=== PATIENT | female | born 2000 | race Caucasian/White ===

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

== ENCOUNTER 2022-01-01 10:10 | Emergency (ER) | payer OTHER, SELFPAY ==
[2022-01-01 10:22] VITALS: BP 115/67; PULSE 85; RESP 18; TEMP 36.7; O2SAT 100
[2022-01-01 10:23] VITALS: BP 115/67; PULSE 85; RESP 18; TEMP 36.7; O2SAT 100
--- NOTE | 2022-01-01 10:32 | ECG_ITS ---
Measurements Intervals [place] Rate: 69 P: 4 ID: 143 QRS: 67 QRSD: 80 T: 39 QT: 374 QTc: 402 Interpretive Statements SINUS RHYTHM NORMAL ECG Electronically Signed On 01-01-2022 10:56:03 CDT by Carlos Monson D.O.
--- NOTE | 2022-01-01 10:39 | ED.CHESTPAIN ---
HPI - Chest Pain General Chief Complaint: Chest Pain Stated Complaint: Neck,Chest,Lt Arm,Lt Hand Pain Time Seen by Provider: 01/01/22 10:40 Source: patient Mode of arrival: ambulatory Limitations: no limitations History of Present Illness HPI narrative: 21-year-old female who presents to [facility] with complaints of episode of chest pain starting at work at 0800 today. States that chest pain in left chest region rates pain 3/10 described as ache or pressure, states pain top of left hand also, denies any shortness of breath, no palpitations verbalized or any nausea or any diaphoresis. Patient states that she has been having episodes of intermittent chest pain with radiation up neck and down left arm for the past few weeks, seems to be worse when she is stressed or anxious. Patient reports that she had baby in August and has not taken her antidepressant since then. Patient states that her family says she must just learn how to control her anxiety and anger and that she doesn't need medications. Patient has clear lungs on auscultation, no tachypnea noted or any wheezing, SAO2 99% on room air, color pink, skin warm and dry. Patient reports that she had COVID about 1 month ago. MD complaint: chest pain Pertinent past history: other (anxiety) Onset (ago): week(s) (increase symptoms for past 2-3 weeks) Timing of current episode: other (started at work at 0800) Prior episodes: Yes Onset: other (with stress) Pain location: left chest Pain radiation: left arm (at times) and neck (at times ) Pain scale (0-10): 3 Exacerbating factors: stress Treatment prior to arrival: none Risk Factors Coronary artery disease risk factors: smoking history (vapes) Thoracic aortic dissection risk factors: none Pulmonary embolism risk factors: oral contracepetive use Related Data Home Medications Medication Instructions Recorded Confirmed No Home Medications 01/01/22 01/01/22 Allergies Allergy/AdvReac Type Severity Reaction Status Date / Time No Known Allergies Allergy Unknown Verified 01/01/22 10:23 Review of Systems Review of Systems: CONSTITUTIONAL: Denies fever, chills, or sweats. EYES: Denies visual changes, redness, or discharge. ENT: Denies rhinorrhea, congestion, sore throat, or otalgia. CARDIOVASCULAR: Positive for episodic chest pain, palpitations, no edema. RESPIRATORY: Denies cough or dyspnea. GASTROINTESTINAL: Denies abdominal pain, nausea, vomiting, or diarrhea. GENITOURINARY: Denies dysuria or hematuria. SKIN: Denies rash or itching. MUSCULOSKELETAL: Denies back pain, joint pain, or myalgia. NEUROLOGIC: Denies headache, numbness, or weakness. PSYCHIATRIC: Positive for anxiety or depression. PMFSH Past Medical History Medical History Anxiety Bipolar 1 disorder Depression Self-mutilation Surgical History Surgical History No pertinent past surgical history Family History Family History Sibling Diabetes mellitus Grandparent Diabetes mellitus Grandparent Breast cancer Social History Social History (Updated 01/01/22 @ 11:33 by Nilsa Tian NP) Tobacco type: e-cigarettes/vaping Alcohol intake: never Substance use: unknown Substance use type: marijuana Spiritual care concerns: No Comments At time of signature, agree with nursing past medical, surgical, social and family history. There is no relevant family history pertinent to the presenting complaint Exam Narrative: GENERAL: Well-appearing, well-nourished, and in no acute distress, is tearful HEAD: Normocephalic, atraumatic. EYES: PERRLA and EOMI. ENT: Nares clear, no rhinorrhea or epistaxis. Mucous membranes moist.TM's normal with good light reflex, throat pink with no lesions or exudates or tonsil swelling NECK: Supple. no lymphadenopathy CHEST: Clear to auscultation. No respirato
== END 2022-01-01 11:08 | disposition home or self-care (01) ==
PROVIDERS: Emergency Provider Registered Nurse
DX: R07.89 Other chest pain (principal); F41.9 Anxiety disorder, unspecified; F17.290 Nicotine dependence, other tobacco product, uncomplicated
CPT/HCPCS: 93005; 99213; G0463

== ENCOUNTER 2022-01-07 10:17 | Emergency (ER) | payer OTHER, SELFPAY ==
--- NOTE | 2022-01-07 10:28 | ED.URI ---
HPI - URI/Sore Throat General Chief Complaint: Upper Respiratory Infection Stated Complaint: fever,chills,sorethroat Time Seen by Provider: 01/07/22 10:28 Source: patient Mode of arrival: ambulatory Limitations: no limitations History of Present Illness HPI Narrative: Ms. Wynne is a 21-year-old female patient presenting to the clinic today with complaints of fever, chills, and sore throat to 3 days. She reports that her mom and dad were sick of last week. She reports her highest temp was 101 ?F states that she is also got a headache and body aches. She denies any known exposure to anybody with COVID, flu, or strep. Related Data Home Medications Medication Instructions Recorded Confirmed No Home Medications 01/01/22 01/01/22 Allergies Allergy/AdvReac Type Severity Reaction Status Date / Time No Known Allergies Allergy Unknown Verified 01/07/22 10:57 Review of Systems Review of Systems: Pertinent positives per HPI. Patient denies any rash, visual changes, dizziness, cough, runny nose, shortness of breath, chest pain, palpitations, nausea, vomiting, diarrhea, constipation, abdominal pain, or any urinary issues. PMFSH Past Medical History Medical History Anxiety Bipolar 1 disorder Depression Self-mutilation Surgical History Surgical History No pertinent past surgical history Family History Family History Sibling Diabetes mellitus Grandparent Diabetes mellitus Grandparent Breast cancer Social History Social History Tobacco type: e-cigarettes/vaping Alcohol intake: never Substance use: unknown Substance use type: marijuana Spiritual care concerns: No Comments At the time of my signature, I reviewed and agree with the nursing past medical, surgical, social, and family history. There is no relevant family history pertinent to the patient complaint. Exam Narrative: General: Well-developed, well nourished, in no apparent distress Head: Normocephalic, atraumatic Eyes: Pupils equally round and reactive to light bilaterally, EOM intact, sclera and conjunctive clear, no discharge, lids normal Ears: TMs intact and dull, ear canals clear, no drainage, grossly hearing normal. Nose: Nares patent, clear nasal discharge, mild inflammation, no sinus tenderness. Mouth: Oropharynx without lesions or masses, good dentition, MMM. Postnasal drip, oropharynx red Neck: Supple, trachea midline, no enlargement of anterior or posterior cervical nodes, no thyroid masses or goiter palpable. Cardio: Regular rate and rhythm, s1 and s2 normal, no murmur appreciated. Resp: Clear to auscultation bilaterally anteriorly and posteriorly, no rhonchi, rales, wheezing or rubs Course Course Emergency Course: Portions of this record may have been created with voice recognition software. Level of Care: Express Care Visit Vital Signs Vital signs: Vital signs reviewed MDM - URI/Sore Throat MDM Narrative Medical decision making narrative: At the time of visit patient is resting comfortably on the exam table. COVID, strep, and influenza testing was completed. All testing was negative. I suspect the patient has viral syndrome. Supportive measures were discussed with the patient she voiced understanding of discharge instructions. Differential Diagnosis Differential diagnosis: Likely upper respiratory infection, otitis media, sinusitis, viral infection, bronchitis, influenza, pharyngitis and other (COVID) Discharge Plan Discharge Clinical Impression: Viral syndrome Patient Disposition: Home, Self-Care Condition: Stable Instructions: Viral Syndrome (ED) Additional Instructions: COVID, strep, and influenza testing negative in the clinic. We will sen
[2022-01-07 10:38] VITALS: BP 94/61; PULSE 92; RESP 18; TEMP 36.5; O2SAT 100
== END 2022-01-07 11:20 | disposition home or self-care (01) ==
PROVIDERS: Emergency Provider Nurse Practitioner Family; PCP Emergency Medicine
DX: B34.9 Viral infection, unspecified (principal); Z20.822 Contact with and (suspected) exposure to COVID-19; F17.290 Nicotine dependence, other tobacco product, uncomplicated
CPT/HCPCS: 87081; 87426; 87804; 87880; 99213; C9803; G0463

== ENCOUNTER 2022-03-08 08:57 | Emergency (ER) | payer OTHER, SELFPAY ==
--- NOTE | ~2022-03-08 | CT_ITS ---
EXAMINATION: CT abdomen pelvis w con DATE: 03/08/2022 12:26 INDICATION: Right lower quadrant abdominal pain. TECHNIQUE: Computed tomography (CT) of the abdomen and pelvis was performed with 100 mL Omnipaque-300 intravenous contrast. Automated exposure control and iterative reconstruction technique were employe d. The dose-length product was 170.00 mGy-cm. COMPARISON: None FINDINGS: Lung bases are clear. Heart size is normal. No pericardial or pleural effusion. Liver, gallbladder, s pleen, pancreas, bilateral adrenal glands and kidneys are normal. Bladder is normal. Anteverted uteru s and bilateral adnexa are unremarkable. Bowels including the appendix are normal. Small amount of li francoise physiologic free fluid in the cul-de-sac. No abscess or free intraperitoneal gas. Bones are unre markable. IMPRESSION: 1. Small amount of likely physiologic free fluid in the cul-de-sac. No other acute intra-abdominal/pe lvic process. Specifically the appendix is normal. Reviewed, dictated and finalized at location A. IMPRESSION: 1. Small amount of likely physiologic free fluid in the cul-de-sac. No other ac [place] intra-abdominal/pelvic process. Specifically the appendix is normal.
[2022-03-08 09:00] VITALS: BP 127/81; PULSE 86; RESP 14; TEMP 36.3; O2SAT 100
[2022-03-08 09:07] VITALS: BP 126/86; PULSE 84; TEMP 36.9; O2SAT 100
[2022-03-08] MEDS: SODIUM CHLORIDE 0.9% IV 1,000 ML 999 ML IV CONT (09:51)
[2022-03-08] MEDS: KETOROLAC 30 MG/ML VIAL (*BKC) IV PUSH (09:51)
[2022-03-08 10:05] LABS: Basophils Percent Auto 0.6 % (0.2-1.2); Eosinophils Percent Auto 0.2 % (0-4.4); Hematocrit 41.5 % (37.0-47.0); Hemoglobin 13.5 g/dL (12.0-15.0); Immature Granulocyte Absolute 0.02 K/mm3 (0.00-0.031); Immature Granulocyte Percent A 0.4 % (0-0.5); Lymphocytes Absolute Auto 0.85 K/mm3 (0.9-3.2); Lymphocytes Percent Auto 18.2 % (18.3-44.2); Mean Corpuscular HGB Conc 32.5 g/dl (32-36); Mean Corpuscular Hemoglobin 26.6 pg (26-34); Mean Corpuscular Volume 81.9 fl (80-100); Mean Platelet Volume 10.3 fl (7.4-10.4); Monocytes Absolute Auto 0.7 K/mm3 (0.1-0.6); Monocytes Percent Auto 14.2 % (2.6-8.5); Neutrophils Absolute Auto 3.1 K/mm3 (1.3-6.7); Neutrophils Percent Auto 66.4 % (45.5-73.1); Platelet Count Result 195 k/mm3 (150-375); Red Blood Count 5.07 M/mm3 (4.2-5.4); Red Cell Distribution Width 13.5 % (11.5-14.5); White Blood Count 4.7 K/mm3 (4.5-10.0)
[2022-03-08 10:11] LABS: Appearance Urine Clear (Clear); Bilirubin Urine Negative (Negative); Blood Urine 1+ (Negative); Color Urine Yellow (Yellow); Glucose Urine UA Negative (Negative); Ketones Urine Negative (Negative); Leukocyte Esterase Ur Negative LEU/UL (Negative); Nitrate Urine Negative (Negative); Protein Urine Negative (Negative); Specific Grav Ur 1.015 (1.001-1.035)
[2022-03-08 10:15] LABS: Alanine Aminotransferase 15 U/L (6-35); Albumin Level 4.4 g/dL (3.7-5.6); Alkaline Phosphatase 98 U/L (45-116); Anion Gap 9 mmol/L (8-16); Aspartate Amino Transferase 39 U/L (14-36); Bilirubin,Total 1.8 mg/dL (0.2-1.3); Blood Urea Nitrogen 12 mg/dL (8-21); Calcium 8.6 mg/dL (8.9-10.7); Carbon Dioxide 25 mmol/L (22-30); Chloride 106 mmol/L (98-107); Estimated CRCL calculation 76 ml/min; Estimated Glomerular Filt Rate > 60; Glucose 94 mg/dL (65-110); Lipase 53 U/L (23-300); Potassium 3.9 mmol/L (3.4-5.0); Sodium 140 mmol/L (134-143)
[2022-03-08 10:17] LABS: Bacteria Urine Trace /hpf; Mucus Urine Rare /lpf; Squamous Epithelial Cell Urine Few /hpf (Few); WBC Urine 0-3 /hpf
[2022-03-08 10:20] LABS: Add Urine Microscopic? YES
--- NOTE | 2022-03-08 12:47 | ED.GENADULT ---
HPI - General Adult General Chief complaint: Back Pain/Injury Stated complaint: back pain radiates down into buttocks/leg Time Seen by Provider: 03/08/22 09:03 Source: RN notes reviewed History of Present Illness HPI narrative: Patient presents emergency room from home for back and abdominal pain. Patient states the pain began 2 days ago. She denies any direct trauma or injury states the pain is located left lower back and radiates around to the abdomen with pain to the bilateral lower abdomen states the pain also going her buttocks pain is described as sharp and stabbing it is worse with movement she denies any fevers or chills chest pain shortness of breath den any vomiting or diarrhea but does note intermittent nausea states she does not take anything for the pain today Related Data Allergies Allergy/AdvReac Type Severity Reaction Status Date / Time No Known Allergies Allergy Unknown Verified 01/07/22 10:57 Review of Systems Review of Systems: Gen.: Denies fevers or chills ENT: Denies congestion Respiratory: Denies shortness of breath or cough CV: Denies chest pain or palpitations GI: See HPI denies burning, urgency, frequency or hematuria Musculoskeletal: D reports left-sided back pain Neuro: Denies numbness, tingling, weakness or focal weakness Skin: Denies rash Except as documented, all other systems reviewed and negative PMF Past Medical History Medical History Anxiety Bipolar 1 disorder Depression Self-mutilation Surgical History Surgical History No pertinent past surgical history Family History Family History Sibling Diabetes mellitus Grandparent Diabetes mellitus Grandparent Breast cancer Social History Social History Tobacco type: e-cigarettes/vaping Alcohol intake: never Substance use: unknown Substance use type: marijuana Spiritual care concerns: No Exam Narrative: APPEARANCE: No acute distress, nontoxic, resting in bed HEENT: Normocephalic, atraumatic, OMM RESPIRATORY: No respiratory distress, clear to auscultation bilaterally with no rhonchi wheezing or rales CARDIOVASCULAR: RRR s murmur ABDOMINAL: Soft nondistended tender palpation right lower quadrant left lower quadrant no tenderness in right upper quadrant left upper quadrant no rebound or guarding left flank tenderness Back: No midline thoracic lumbar tenderness palpation tender palpation over left [place]igee muscles L3-5 MUSCULOSKELETAl: Moves all extremities. No clubbing, cyanosis or edema. NEURO: Awake and alert. Following commands, speech normal, no focal deficits SKIN:: Warm, dry. Normal Color PSYCHIATRIC: Normal affect/mood Course Course Emergency Course: Patient states that they are feeling much better at this time. States abdominal pain has resolved. Repeat abdominal exam shows the patient's abdomen to be soft and nontender. Discussed with patient results of workup and diagnosis. Discussed need for follow-up with primary care physician, reasons to return to the emergency department in proper use of medication. Patient understands and agrees to current treatment plan Vital Signs Vital signs: Vital Signs Temperature 97.3 F L 03/08/22 09:00 Pulse Rate 86 03/08/22 09:00 Respiratory Rate 14 03/08/22 09:00 Blood Pressure 127/81 03/08/22 09:00 Pulse Oximetry 100 03/08/22 09:00 Oxygen Delivery Room Air 03/08/22 09:00 Temperature 98.5 F 03/08/22 09:07 Pulse Rate 84 03/08/22 09:07 Respiratory Rate 14 03/08/22 09:00 Blood Pressure 126/86 03/08/22 09:07 Pulse Oximetry 100 03/08/22 09:07 Oxygen Delivery Room Air 03/08/22 09:00 Medical Decision Making MDM Narrative Medical decision making narrative: Patient's abdomen is soft without significan
[2022-03-08 12:54] VITALS: BP 118/64; PULSE 86; RESP 18; O2SAT 99
== END 2022-03-08 12:54 | disposition home or self-care (01) ==
PROVIDERS: Emergency Provider Emergency Medicine; PCP Emergency Medicine
DX: M54.50 Low back pain, unspecified (principal); R10.32 Left lower quadrant pain; R10.31 Right lower quadrant pain; F17.290 Nicotine dependence, other tobacco product, uncomplicated
CPT/HCPCS: 36415; 74177; 80053; 81001; 81025; 83690; 85025; 96361; 96374; 99284; J1885; J7030; Q9967

== ENCOUNTER 2024-06-12 16:50 | Emergency (ER) | payer OTHER, SELFPAY ==
[2024-06-12 17:07] VITALS: BP 109/63; PULSE 78; RESP 18; TEMP 37.1; O2SAT 100
--- NOTE | 2024-06-12 17:24 | ED_ITS ---
HPI - URI/Sore Throat General Chief Complaint: Upper Respiratory Infection Stated Complaint: throat soreness Time Seen by Provider: 06/12/24 17:25 Source: patient Mode of arrival: ambulatory Limitations: no limitations History of Present Illness HPI Narrative: A 23-year-old female presents with complaint of nasal congestion, cough, postnasal drainage, sore throat for the past 3-4 days. Afebrile. reports chills and body aches. No chest pain or shortness of breath. Denies nausea vomiting diarrhea. Not taking any ttny-uqp-cenyobt medications to treat her symptoms. All systems reviewed and negative except as noted above. Related Data Home Medications Medication Instructions Recorded Confirmed No Home Medications 06/12/24 06/12/24 Allergies Allergy/AdvReac Type Severity Reaction Status Date / Time No Known Allergies Allergy Unknown Verified 06/12/24 17:19 Review of Systems Review of Systems: CONSTITUTIONAL: Denies fever, chills, or sweats. EYES: Denies visual changes, redness, or discharge. ENT: Reports rhinorrhea, congestion, sore throat. Denies otalgia. CARDIOVASCULAR: Denies chest pain, palpitations, or edema. RESPIRATORY: reports cough. Denies dyspnea. GASTROINTESTINAL: Denies abdominal pain, nausea, vomiting, or diarrhea. GENITOURINARY: Denies dysuria or hematuria. SKIN: Denies rash or itching. MUSCULOSKELETAL: Denies back pain, joint pain, or myalgia. NEUROLOGIC: Denies headache, numbness, or weakness. PSYCHIATRIC: Denies anxiety or depression. All other systems reviewed are negative, except as documented in HPI. [facility] Past Medical History Medical History (Updated 06/12/24 @ 17:52 by Damaris Reyes NP) Anxiety Bipolar 1 disorder Depression Self-mutilation Suppression of menses Surgical History Surgical History No pertinent past surgical history Family History Family History Sibling Diabetes mellitus Grandparent Diabetes mellitus Grandparent Breast cancer Social History Social History (Updated 08/11/23 @ 08:23 by Essence To CMA) Smoking status: Former smoker Tobacco type: e-cigarettes/vaping Alcohol intake: never Substance use: current Substance use type: marijuana Last use: occasional Do You Feel Safe in your Home?: Yes Lack of Transportation: No Lack of Food: Never True Current Housing: I Have Housing Concerned About Future Housing: No Difficulty Paying Gas/Electric Bills: No Difficulty Paying for Meds: No Currently Unemployed: No Education: High School Diploma/GED Difficulty w/ Childcare or Family Care: No Living arrangements: with family Occupation/Education: occupation Gender identity (if verbalized by the patient): Female Sexual Orientation (if Verbalized by the Patient): Straight or Heterosexual Spiritual care concerns: No Comments At time of signature, agree with nursing past medical, surgical, social and family history. There is no relevant family history pertinent to the presenting complaint. Exam Narrative: GENERAL: This is a well-nourished, well-developed patient, in no apparent distress. HEAD: normocephalic, atraumatic. EYES: PERRL. Sclera clear/white. Vision is grossly intact. EARS: External ears normal, auditory canals clear and without drainage, TMs normal without perforation. Hearing grossly intact. NOSE: External nose normal with Clear nasal drainage, erythema to nares THROAT: Mucous membranes moist, mild erythema postnasal drainage. No swelling or exudates. NECK: Neck supple, non-tender without lymphadenopathy, masses or thyromegaly. CARDIOVASCULAR: Regular rate and rhythm without murmurs, gallops, or rubs. RESPIRATORY: Clear to auscultation. Breath sounds equal bilaterally. No wheezes, rales, or rhonchi. SKIN: warm, Dry, intact with no suspicious lesions or rash, good texture and turgor. NEURO: awake, alert, and oriented to person, place and time. There were no obvious focal neurologic abnormalities. EXTREMITIES: No joint tenderness, effusion, or edema noted. Course Course Level of Care: Express Care Visit Vital Signs Vital signs: Vital Signs Temperature 37.1 C 06/12/24 17:07 Pulse Rate 78 06/12/24 17:07 Respiratory Rate 18 06/12/24 17:07 Blood Pressure 109/63 06/12/24 17:07 Pulse Oximetry 100 06/12/24 17:07 Oxygen Delivery Room Air 06/12/24 17:07 Temperature 37.1 C 06/12/24 17:07 Pulse Rate 78 06/12/24 17:07 Respiratory Rate 18 06/12/24 17:07 Blood Pressure 109/63 06/12/24 17:07 Pulse Oximetry 100 06/12/24 17:07 Oxygen Delivery Room Air 06/12/24 17:07 reviewed MDM - URI/Sore Throat MDM Narrative Medical decision making narrative: negative COVID, influenza and strep test. Strep culture ordered. Will wait for results prior to treating with antibiotics. Recommend patient take kksb-hya-unrtoif medications to treat symptoms. Patient well-appearing, nontoxic. Patient is aware of diagnosis, understands and agrees to treatment plan. Anticipatory guidance given. Patient agrees to follow-up as directed and is aware of reasons to seek care at the emergency department. Portions of this record may have been created with voice recognition software Differential Diagnosis Differential diagnosis: Likely upper respiratory infection, sinusitis, viral infection and pharyngitis Discharge Plan Discharge Clinical Impression: Upper respiratory infection, viral Patient Disposition: Home, Self-Care Condition: Stable Instructions: Upper Respiratory Infection (ED) Additional Instructions: Your COVID, influenza, strep test were negative today. A strep culture was ordered and results will take 24-48 hours. If her strep culture is positive we will call you at that time and prescribed an antibiotic. Taking eglc-pvu-cfewxtv medication to treat her symptoms such as DayQuil NyQuil cold and Sinus. Drink plenty of water and rest. Place cool mist humidifier in bedroom where you sleep. Follow-up with your primary care physician if symptoms are not improving. Prescriptions: No Action No Home Medications Follow-up/Referrals: PHYSICIAN,EQUIPMENT SERVICE ASSOCIATE [Primary Care Provider] - Time of Disposition: 17:52
[2024-06-12 17:39] LABS: EDSTREPNEGPOS1 Negative (Negative)
[2024-06-12 18:00] LABS: EDCOVIDSCREEN Negative (Negative); EDINFLUASCREEN Negative (Negative); EDINFLUBSCREEN Negative (Negative)
== END 2024-06-12 18:00 | disposition home or self-care (01) ==
PROVIDERS: Emergency Provider Nurse Practitioner Family; Referring Provider Emergency Medicine
DX: J06.9 Acute upper respiratory infection, unspecified (principal); Z20.822 Contact with and (suspected) exposure to COVID-19; F12.90 Cannabis use, unspecified, uncomplicated
CPT/HCPCS: 87081; 87426; 87804; 87880; 99213; G0463

== ENCOUNTER 2024-06-19 03:20 | Emergency (ER) | payer OTHER, SELFPAY ==
--- NOTE | 2024-06-19 03:25 | ED.NAVMDI ---
HPI - Nausea/Vomiting/Diarrhea General Chief complaint: Nausea/Vomiting/Diarrhea Stated complaint: vomiting Time Seen by Provider: 06/19/24 03:24 Source: patient and other Mode of arrival: ambulatory Limitations: no limitations History of Present Illness HPI Narrative: Patient presents with multiple episodes nonbloody emesis that started at approximately 2:00 a.m. on 06/18/2024 (triage note erroneously stated 05/18/24). she had been drinking alcohol earlier that night so initially attributed to this but the vomiting persisted. she has been having increasing nausea and is having some low abdominal pain which she feels like her abdomen is knotting up. she has also been dry heaving. Last menstrual period was a few days ago she states it was short. female. She denies any vaginal discharge or bleeding otherwise. No fevers but she has been feeling chilled. Her last bowel was at 8 and she denies any diarrhea or constipation. She had hyperemesis with previous . She does use marijuana daily. Patient states she does still have sort of an appetite if she could only keep the nausea and vomiting controlled. In particular she states the pain is in her right lower quadrant but it has always been in this location, did not start elsewhere. Related Data Allergies Allergy/AdvReac Type Severity Reaction Status Date / Time No Known Allergies Allergy Unknown Verified 06/19/24 03:23 [facility] Past Medical History Medical History Anxiety Bipolar 1 disorder Depression Hyperemesis gravidarum Self-mutilation Suppression of menses Surgical History Surgical History No pertinent past surgical history Family History Family History Sibling Diabetes mellitus Grandparent Diabetes mellitus Grandparent Breast cancer Social History Social History Smoking status: Former smoker Tobacco type: e-cigarettes/vaping Alcohol intake: current Substance use: current Substance use type: marijuana Other substance usage details: daily Do You Feel Safe in your Home?: Yes Lack of Transportation: No Lack of Food: Never True Current Housing: I Have Housing Concerned About Future Housing: No Difficulty Paying Gas/Electric Bills: No Difficulty Paying for Meds: No Currently Unemployed: No Education: High School Diploma/GED Difficulty w/ Childcare or Family Care: No Living arrangements: with family Occupation/Education: occupation Gender identity (if verbalized by the patient): Female Sexual Orientation (if Verbalized by the Patient): Straight or Heterosexual Spiritual care concerns: No Exam Narrative: GENERAL: in moderate acute distress, loudly vomiting; appears acutely ill but nontoxic. provider Tapping the bed does not increase patient's pain but she does state that it makes her nausea worse. HEAD: Normocephalic, atraumatic. EYES: Non injected, non icteric ENT: Nares clear, no rhinorrhea or epistaxis. NECK: Supple. CHEST: Speaking in full sentences. No respiratory distress. Patient able to force herself to cough and states this does not change the nature of her pain. HEART: Regular rate and rhythm. ABDOMEN: Soft, nondistended. no tenderness to palpation throughout the quadrants including no tenderness in the right lower quadrant. No rebound tenderness or guarding. Not peritoneal. Rovsing sign negative. EXTREMITIES: Normal range of motion. No lower extremity edema. SKIN: Warm, dry, no rash. NEURO: No focal deficits. Alert and oriented x3. PSYCH: Normal mood and affect. Course Vital Signs Vital signs: Vital Signs Temperature 98.3 F 06/19/24 03:43 Pulse Rate 72 06/19/24 03:43 Respiratory Rate 20 06/19/24 03:43 Blood Pressure 148/104 H 06/19/24 03:43 Pulse Oximetry 99 06/19/24 03:43 Temperature 98.3 F 06/19/24 03:43 Pulse Rate 57 L 06/19/24 04:36 Respiratory Rate 20 06/19/24 04:36 Blood Pressure 112/77 06/19/24 04:36 Pulse Oximetry 99 06/19/24 04:36 MDM - Nausea/Vomiting/Diarrhea MDM Narrative Medical decision making narrative: Patient presents with multiple episodes emesis for approximately 24 hours. It started after she had been drinking alcohol has persisted beyond that. Associated with some low abdominal pain particularly in the right lower quadrant Though with a reassuring physical exam. In the emergency department she is afebrile with vital signs notable for hypertension. Miramontes Score RLQ tenderness (No 0, Yes +2): 0 Temp greater than37.3C (No 0, Yes +1): 0 Rebound tenderness (No 0, Yes +1): 0 Migration of pain to the RLQ (No 0, Yes +1): 0 Anorexia (No 0, Yes +1): 0 Nausea/vomiting (No 0, Yes +1): 1 Leukocytosis greater than 10K (No 0, Yes +2): 2 Leukocyte left shift greater than 75% neutrophils (No 0, Yes +1): 0 Total Result = 4 points, unlikely appendicitis. This is especially supported by the absence of Rovsing sign and the fact that her pain is not exacerbated by cough or tapping the bed. DIFFERENTIAL DIAGNOSIS Other causes of right lower quadrant pain in my differential diagnosis besides appendicitis include but are not limited to nephrologic disease like kidney stone, ovarian pathology like torsion or tubo-ovarian abscess, and other GI pathology like colitis or diverticulitis. Also considered gastritis, GERD, hyperemesis gravidarum, hyperemesis cannabinoid syndrome (patient does use marijuana daily), including ectopic , Food poisoning, gastroenteritis drug induced nausea and vomiting, dehydration. we did discuss that we trial 1st line therapies 1st but if patient was not responding, would consider alternative medications given her daily marijuana use and we did briefly discuss the diagnosis of hyperemesis cannabinoid syndrome given her daily use of marijuana but that this is also a diagnosis of exclusion. She has a leukocytosis and elevated hemoglobin and hematocrit likely secondary to hemoconcentration. She has hyperglycemia with an anion gap but no kaitlyn acidosis. I suspect this is driven by some starvation ketosis versus alcohol ketosis. Her calcium corrects to 9.1 mg/dL given her hyper albuminemia; again, likely attributed to hemoconcentration. Patient is reassessed at approximately 5:10 a.m.. She notes that she is feeling much better. Has successfully p.o. challenged with no recurrence of emesis. Stable for discharge. Provided prescriptions for oral disintegrating tablets Zofran as well as additional famotidine. As patient is about to be discharged she is noted to start vomiting again. She does states she would still like to be discharged but would like dose of some medication prior to doing so. Haldol and diphenhydramine ordered; patient has someone with her to provide transportation. Patient is observed for approximately 10-15 minutes after medication administered by RN. Lab Data Attestation: I reviewed the patient's lab results. 06/19/24 03:36 06/19/24 03:36 Labs: Lab Results 06/19/24 06/19/24 06/19/24 Range/Units 03:36 03:36 04:31 WBC 16.7 H (4.5-10.0) K/mm3 RBC 5.96 H (4.2-5.4) M/mm3 Hgb 17.1 H D (12.0-15.0) g/dL Hct 48.2 H (37.0-47.0) % MCV 80.9 (80-100) fl MCH 28.7 (26-34) pg MCHC 35.5 (32-36) g/dl RDW 13.1 (11.5-14.5) % Plt Count 363 D (150-375) k/mm3 MPV 9.6 (7.4-10.4) fl Immature Gran % (Auto) 0.4 (0-0.5) % Neut % (Auto) 88.4 H (45.5-73.1) % Lymph % (Auto) 5.1 L (18.3-44.2) % [place] % (Auto) 5.9 (2.6-8.5) % Eos % (Auto) 0.0 (0-4.4) % Baso % (Auto) 0.2 (0.2-1.2) % Lymph # (Auto) 0.85 L (0.9-3.2) K/mm3 [place] # (Auto) 1.0 H (0.1-0.6) K/mm3 Eos # (Auto) 0.0 (0-0.3) K/mm3 Baso # (Auto) 0.0 (0.0-0.1) K/mm3 Abs Immat Gran (auto) 0.06 H (0.00-0.031) K/mm3 Absolute Neuts (auto) 14.7 H (1.3-6.7) K/mm3 Absolute Nucleated RBC 0.000 (0.0-0.012) K/mm3 Nucleated RBC % 0.0 (0.0-0.2) % Sodium 136 L (137-145) mmol/L Potassium 3.4 (3.4-5.0) mmol/L Chloride 99 (98-107) mmol/L Carbon Dioxide 20 L (22-30) mmol/L Anion Gap 17 H (4-12) mmol/L BUN 18 H (7-17) mg/dL Creatinine 0.80 (0.7-1.0) mg/dL Estim Creat Clear Calc Not Reportable Estimated GFR > 60 (59 - ) Glucose 147 H (65-110) mg/dL Calcium 10.4 H (8.4-10.2) mg/dL Magnesium 1.7 Cancelled (1.6-2.3) mg/dL Total Bilirubin 3.0 H (0.2-1.3) mg/dL AST 43 H (14-36) U/L ALT 26 (6-35) U/L Alkaline Phosphatase 103 (38-126) U/L Total Protein 10.0 H (6.3-8.2) g/dL Albumin 5.6 H (3.5-5.1) g/dL Lipase 36 (23-300) U/L Influenza A (RT-PCR) Negative (Negative) Influenza B (RT-PCR) Negative (Negative) SARS-CoV-2 RNA (RT-PCR) Negative (Negative) Discharge Plan Discharge Clinical Impression: Gastritis, Nausea & vomiting, Leukocytosis, Elevated hemoglobin, Hyperglycemia, Elevated AST (SGOT), Hyperalbuminemia Patient Disposition: Home, Self-Care Condition: Stable Instructions: Antibiotic Form, Gastritis (DC), Acute Nausea and Vomiting (ED), Leukocytosis (ED), Nondiabetic Hyperglycemia (ED) Additional Instructions: Your symptoms improved after IV fluids and medication. You are being prescribed these medications to use outpatient as well. Rest and maintain your hydration. Follow-up with primary care physician. If you do not have 1 the name of doctors listed below. Return to the emergency department with any new or worsening symptoms. Prescriptions: New ondansetron 4 mg tablet,disintegrating 4 mg PO Q8H PRN (Reason: nausea and vomiting) Qty: 10 0RF famotidine 10 mg tablet 10 mg PO DAILY Qty: 14 0RF Follow-up/Referrals: PHYSICIAN,FINANCIAL COACH [Primary Care Provider] - Kalia Small MD [Physician] - (family practice) Stand Alone Forms: Work/School Release IP Time of Disposition: 05:18
[2024-06-19] MEDS: FAMOTIDINE 20 MG/2 ML VIAL IV PUSH (03:33)
[2024-06-19] MEDS: ONDANSETRON INJ 4 MG/2 ML VIAL IV PUSH (03:33)
[2024-06-19 03:43] VITALS: BP 148/104; PULSE 72; RESP 20; TEMP 36.8; O2SAT 99
[2024-06-19 03:43] LABS: Basophils Percent Auto 0.2 % (0.2-1.2); Hematocrit 48.2 % (37.0-47.0); Hemoglobin 17.1 g/dL (12.0-15.0); Immature Granulocyte Absolute 0.06 K/mm3 (0.00-0.031); Immature Granulocyte Percent A 0.4 % (0-0.5); Lymphocytes Absolute Auto 0.85 K/mm3 (0.9-3.2); Lymphocytes Percent Auto 5.1 % (18.3-44.2); Mean Corpuscular HGB Conc 35.5 g/dl (32-36); Mean Corpuscular Hemoglobin 28.7 pg (26-34); Mean Corpuscular Volume 80.9 fl (80-100); Mean Platelet Volume 9.6 fl (7.4-10.4); Monocytes Percent Auto 5.9 % (2.6-8.5); Neutrophils Absolute Auto 14.7 K/mm3 (1.3-6.7); Neutrophils Percent Auto 88.4 % (45.5-73.1); Platelet Count Result 363 k/mm3 (150-375); Red Blood Count 5.96 M/mm3 (4.2-5.4); Red Cell Distribution Width 13.1 % (11.5-14.5); White Blood Count 16.7 K/mm3 (4.5-10.0)
[2024-06-19 03:53] LABS: Albumin Level 5.6 g/dL (3.5-5.1); Alkaline Phosphatase 103 U/L (38-126); Anion Gap 17 mmol/L (4-12); Aspartate Amino Transferase 43 U/L (14-36); Blood Urea Nitrogen 18 mg/dL (7-17); Calcium 10.4 mg/dL (8.4-10.2); Carbon Dioxide 20 mmol/L (22-30); Chloride 99 mmol/L (98-107); Estimated Glomerular Filt Rate > 60; Glucose 147 mg/dL (65-110); Lipase 36 U/L (23-300); Magnesium 1.7 mg/dL (1.6-2.3); Potassium 3.4 mmol/L (3.4-5.0); Sodium 136 mmol/L (137-145)
[2024-06-19 03:58] LABS: Alanine Aminotransferase 26 U/L (6-35)
[2024-06-19] MEDS: LACTATED RINGERS 1,000 ML 999 ML IV CONT (04:28)
[2024-06-19 04:36] VITALS: BP 112/77; PULSE 57; RESP 20; O2SAT 99
--- NOTE | 2024-06-19 04:42 | PC.NURSE ---
Patient states her nausea is better. ERP notified, patient given ice chips for PO challenge.
[2024-06-19 05:13] LABS: Influenza A QL RT-PCR Negative (Negative); Influenza B QL RT-PCR Negative (Negative); SARS-CoV-2 RNA PCR Negative (Negative)
--- NOTE | 2024-06-19 05:52 | PC.NURSE ---
Patient states she feels the nausea back and requests something for nausea before going home. ERP notified and orders placed.
[2024-06-19] MEDS: HALOPERIDOL LACTATE 5 MG/ML VIAL 2.5 MG IV PUSH (05:56)
[2024-06-19] MEDS: diphenhydrAMINE HCl INJ 50 MG/ML VIAL 12.5 MG IV PUSH (05:56)
== END 2024-06-19 06:33 | disposition home or self-care (01) ==
PROVIDERS: Emergency Provider Student in an Organized Health Care Education/Training Program
DX: K29.70 Gastritis, unspecified, without bleeding (principal); D72.829 Elevated white blood cell count, unspecified; R73.9 Hyperglycemia, unspecified; R74.01 Elevation of levels of liver transaminase levels; F31.9 Bipolar disorder, unspecified; Z87.891 Personal history of nicotine dependence; Z20.822 Contact with and (suspected) exposure to COVID-19
CPT/HCPCS: 36415; 80053; 83690; 83735; 85025; 87636; 96361; 96374; 96375; 99284; J1200; J1630; J2405; J7120

== ENCOUNTER 2024-06-20 12:02 | Emergency (ER) | payer OTHER, SELFPAY ==
--- NOTE | ~2024-06-20 | CT_ITS ---
CT abdomen pelvis w con Ordering provider: Mary Segura PA-C History: 23 years Female with . abd pain, vomiting . Comparison: None. Technique: CT abdomen and pelvis with IV and without oral contrast. Automated exposure control and it erative reconstruction technique were employed. The dose-length product was 167.22 mGy-cm. 98 mL Omnipaque 350 was given IV. The Findings: VISUALIZED LOWER CHEST: Normal. UPPER ABDOMINAL ORGANS: Liver: Normal. Gallbladder: Normal. Spleen: Normal. Stomach/duodenum: Normal. Pancreas: Normal. Adrenals: Normal. Kidneys: Normal. PELVIC ORGANS: The bladder is underfilled. BOWEL AND MESENTERY: Colon: No evidence of diverticulitis. No evidence of appendicitis. Small Bowel: Normal. No obstruction. Peritoneum/mesentery: No free air or free fluid. No mesenteric lymphadenopathy. RETROPERITONEUM: Normal aorta. No retroperitoneal lymphadenopathy. MUSCULOSKELETAL: Superficial soft tissues: The superficial soft tissues are normal. Bones: Normal spine. IMPRESSION: 1. No evidence of appendicitis, diverticulitis or intestinal obstruction. Reviewed, dictated and finalized at location A. [facility] ROOM NURSE
[2024-06-20 12:23] VITALS: BP 126/82; PULSE 62; RESP 16; TEMP 36.6; O2SAT 100
[2024-06-20 13:00] VITALS: BP 112/76; PULSE 78; RESP 16; TEMP 36.6; O2SAT 100
--- NOTE | 2024-06-20 13:00 | ED.ABDPAIN ---
HPI - Abdominal Pain General Chief Complaint: Abdominal Pain <Mary Segura PA-C - Last Filed: 06/20/24 18:38> Stated Complaint: abd pain, PCP sent her for abd CT <Mary Segura PA-C - Last Filed: 06/20/24 18:38> Time Seen by Provider: 06/20/24 13:00 <Mary Segura PA-C - Last Filed: 06/20/24 18:38> Focused HPI: This is a 23 year old female that presents to the ER for nausea and vomiting. Ongoing over the last couple of days. She was seen in the ER and told she was dehydrated. She followed up with her PCP who wanted her to be further evaluation with a CT scan. Denies fevers. GENERAL: Well-appearing, well-nourished, and in no acute distress. HEAD: Normocephalic, atraumatic. CHEST: Clear to auscultation. ?No respiratory distress. HEART: Regular rate and rhythm.? NEURO: ?Alert and oriented x3. Patient screened in triage and initial orders placed.? ?Additional care and disposition to be based upon?diagnostic testing and treatment. <Mary Segura PA-C - Last Filed: 06/20/24 18:38> History of Present Illness HPI narrative: Agree with HPI. Had outpatient lab work yesterday it showed leukocytosis with elevated hemoglobin. <Yaya Garzon MD - Last Filed: 06/20/24 15:21> Related Data Allergies/Adverse Reactions: Allergies Allergy/AdvReac Type Severity Reaction Status Date / Time No Known Allergies Allergy Unknown Verified 06/20/24 12:03 <Mary Segura PA-C - Last Filed: 06/20/24 18:38> Review of Systems Review of Systems: All systems reviewed & are unremarkable except as noted in HPI and below <Yaya Garzon MD - Last Filed: 06/20/24 15:21> Constitutional: Constitutional: Denies chills, Reports fatigue and Denies fever(s) <Yaya Garzon MD - Last Filed: 06/20/24 15:21> Cardiovascular: Cardiovascular: Reports no additional cardiovascular complaints <Yaya Garzon MD - Last Filed: 06/20/24 15:21> Respiratory: Respiratory: Reports no additional respiratory complaints <Yaya Garzon MD - Last Filed: 06/20/24 15:21> Gastrointestinal: Gastrointestinal: Reports abdominal pain, Reports nausea and Reports vomiting <Yaya Garzon MD - Last Filed: 06/20/24 15:21> Genitourinary: Genitourinary: Reports no additional female genitourinary complaints <Yaya Garzon MD - Last Filed: 06/20/24 15:21> Integumentary/Breasts: Skin/Breast: Reports system reviewed and no additional complaints, except as docu <Yaya Garzon MD - Last Filed: 06/20/24 15:21> [facility] Past Medical History Medical History: Medical History Anxiety Bipolar 1 disorder Depression Hyperemesis gravidarum Self-mutilation Suppression of menses <Mary Segura PA-C - Last Filed: 06/20/24 18:38> Surgical History Surgical History: Surgical History No pertinent past surgical history <Mary Segura PA-C - Last Filed: 06/20/24 18:38> Family History Family History: Family History Sibling Diabetes mellitus Grandparent Diabetes mellitus Grandparent Breast cancer <Mary Segura PA-C - Last Filed: 06/20/24 18:38> Social History Social History: Social History Smoking status: Former smoker Tobacco type: e-cigarettes/vaping Alcohol intake: current Substance use: current Substance use type: marijuana Other substance usage details: daily Do You Feel Safe in your Home?: Yes Lack of Transportation: No Lack of Food: Never True Current Housing: I Have Housing Concerned About Future Housing: No Difficulty Paying Gas/Electric Bills: No Difficulty Paying for Meds: No Currently Unemployed: No Education: High School Diploma/GED Difficulty w/ Childcare or Family Care: No Living arrangements: with family Occupation/Education: occupation Gender identity (if verbalized by the patient): Female Sexual Orientation (if Verbalized by the Patient): Straight or Heterosexual Spiritual care concerns: No <Mary Segura PA-C - Last Filed: 06/20/24 18:38> Exam Narrative: GENERAL: Well-appearing, well-nourished, and in no acute distress. HEAD: Normocephalic, atraumatic. ENT: Mucous membranes moist. CHEST: Clear to auscultation. No respiratory distress. HEART: Regular rate and rhythm. Normal peripheral pulses. ABDOMEN: Soft, nontender, nondistended. EXTREMITIES: Normal range of motion. No edema. NEURO: Alert and oriented x3. PSYCH: Normal mood and affect. <Yaya Garzon MD - Last Filed: 06/20/24 15:21> Course Course Emergency Course: Labs improving since yesterday. Patient declines IV fluid. Discussed need for aggressive oral rehydration at home. Patient verbalized understanding. She has Zofran at home as well. Discussed imaging results. No appy. <Yaya Garzon MD - Last Filed: 06/20/24 15:21> Vital Signs Vital signs: Vital Signs Temperature 98 F 06/20/24 12:23 Pulse Rate 62 06/20/24 12:23 Respiratory Rate 16 06/20/24 12:23 Blood Pressure 126/82 06/20/24 12:23 Pulse Oximetry 100 06/20/24 12:23 Oxygen Delivery Room Air 06/20/24 12:23 Temperature 97.8 F 06/20/24 15:47 Pulse Rate 74 06/20/24 15:47 Respiratory Rate 16 06/20/24 15:47 Blood Pressure 110/76 06/20/24 15:47 Pulse Oximetry 98 06/20/24 15:47 Oxygen Delivery Room Air 06/20/24 12:23 <Mary Segura PA-C - Last Filed: 06/20/24 18:38> Vital Signs Temperature 98 F 06/20/24 12:23 Pulse Rate 62 06/20/24 12:23 Respiratory Rate 16 06/20/24 12:23 Blood Pressure 126/82 06/20/24 12:23 Pulse Oximetry 100 06/20/24 12:23 Oxygen Delivery Room Air 06/20/24 12:23 Temperature 97.8 F 06/20/24 15:47 Pulse Rate 74 06/20/24 15:47 Respiratory Rate 16 06/20/24 15:47 Blood Pressure 110/76 06/20/24 15:47 Pulse Oximetry 98 06/20/24 15:47 Oxygen Delivery Room Air 06/20/24 12:23 <Yaya Garzon MD - Last Filed: 06/20/24 15:21> MDM - Abdominal Pain Lab Data Result diagrams: 06/20/24 13:17 06/20/24 13:17 <Mary Segura PA-C - Last Filed: 06/20/24 18:38> Labs: Lab Results 06/20/24 Range/Units 13:17 WBC 10.1 H (4.5-10.0) K/mm3 RBC 5.62 H (4.2-5.4) M/mm3 Hgb 16.2 H (12.0-15.0) g/dL Hct 48.0 H (37.0-47.0) % MCV 85.4 D (80-100) fl MCH 28.8 (26-34) pg MCHC 33.8 (32-36) g/dl RDW 13.0 (11.5-14.5) % Plt Count 290 (150-375) k/mm3 MPV 9.6 (7.4-10.4) fl Immature Gran % (Auto) 0.4 (0-0.5) % Neut % (Auto) 64.4 (45.5-73.1) % Lymph % (Auto) 25.8 (18.3-44.2) % Morton % (Auto) 8.7 H (2.6-8.5) % Eos % (Auto) 0.4 (0-4.4) % Baso % (Auto) 0.3 (0.2-1.2) % Lymph # (Auto) 2.61 (0.9-3.2) K/mm3 Morton # (Auto) 0.9 H (0.1-0.6) K/mm3 Eos # (Auto) 0.0 (0-0.3) K/mm3 Baso # (Auto) 0.0 (0.0-0.1) K/mm3 Abs Immat Gran (auto) 0.04 H (0.00-0.031) K/mm3 Absolute Neuts (auto) 6.5 (1.3-6.7) K/mm3 Absolute Nucleated RBC 0.000 (0.0-0.012) K/mm3 Nucleated RBC % 0.0 (0.0-0.2) % Sodium 137 (137-145) mmol/L Potassium 3.4 (3.4-5.0) mmol/L Chloride 100 (98-107) mmol/L Carbon Dioxide 27 (22-30) mmol/L Anion Gap 10 (4-12) mmol/L BUN 15 (7-17) mg/dL Creatinine 0.70 (0.7-1.0) mg/dL Estim Creat Clear Calc 77 ml/min Estimated GFR > 60 (59 - ) Glucose 87 (65-110) mg/dL Calcium 9.8 (8.4-10.2) mg/dL Total Bilirubin 2.6 H (0.2-1.3) mg/dL AST 32 (14-36) U/L ALT 17 (6-35) U/L Alkaline Phosphatase 63 (38-126) U/L Total Protein 9.0 H (6.3-8.2) g/dL Albumin 5.0 (3.5-5.1) g/dL Lipase 88 (23-300) U/L Urine Color Yellow (Yellow) Urine Appearance Clear (Clear) Urine pH 6.5 (5.0-9.0) Ur Specific [place] 1.009 (1.001-1.035) Urine Protein Negative (Negative) mg/dL Urine Glucose (UA) Negative (Negative) mg/dL Urine Ketones Negative (Negative) mg/dL Ur Blood (Man) 2+ H (Negative) Urine Nitrate Negative (Negative) Urine Bilirubin Negative (Negative) Urine Urobilinogen 1.0 (<2.0) mg/dL Leukocyte Esterase Rfl Trace H (Negative) THALIA/UL Urine RBC 11-20 H (0-2) /hpf Urine WBC 0-5 (0-3) /hpf Ur Squamous Epith Cells None seen (Few) /hpf Urine Bacteria Rare /hpf Urine Casts 0-2 POC Urine HCG, Qual Negative (Negative) <Mary Segura PA-C - Last Filed: 06/20/24 18:38> Lab Results 06/20/24 Range/Units 13:17 WBC 10.1 H (4.5-10.0) K/mm3 RBC 5.62 H (4.2-5.4) M/mm3 Hgb 16.2 H (12.0-15.0) g/dL Hct 48.0 H (37.0-47.0) % MCV 85.4 D (80-100) fl MCH 28.8 (26-34) pg MCHC 33.8 (32-36) g/dl RDW 13.0 (11.5-14.5) % Plt Count 290 (150-375) k/mm3 MPV 9.6 (7.4-10.4) fl Immature Gran % (Auto) 0.4 (0-0.5) % Neut % (Auto) 64.4 (45.5-73.1) % Lymph % (Auto) 25.8 (18.3-44.2) % Morton % (Auto) 8.7 H (2.6-8.5) % Eos % (Auto) 0.4 (0-4.4) % Baso % (Auto) 0.3 (0.2-1.2) % Lymph # (Auto) 2.61 (0.9-3.2) K/mm3 Morton # (Auto) 0.9 H (0.1-0.6) K/mm3 Eos # (Auto) 0.0 (0-0.3) K/mm3 Baso # (Auto) 0.0 (0.0-0.1) K/mm3 Abs Immat Gran (auto) 0.04 H (0.00-0.031) K/mm3 Absolute Neuts (auto) 6.5 (1.3-6.7) K/mm3 Absolute Nucleated RBC 0.000 (0.0-0.012) K/mm3 Nucleated RBC % 0.0 (0.0-0.2) % Sodium 137 (137-145) mmol/L Potassium 3.4 (3.4-5.0) mmol/L Chloride 100 (98-107) mmol/L Carbon Dioxide 27 (22-30) mmol/L Anion Gap 10 (4-12) mmol/L BUN 15 (7-17) mg/dL Creatinine 0.70 (0.7-1.0) mg/dL Estim Creat Clear Calc 77 ml/min Estimated GFR > 60 (59 - ) Glucose 87 (65-110) mg/dL Calcium 9.8 (8.4-10.2) mg/dL Total Bilirubin 2.6 H (0.2-1.3) mg/dL AST 32 (14-36) U/L ALT 17 (6-35) U/L Alkaline Phosphatase 63 (38-126) U/L Total Protein 9.0 H (6.3-8.2) g/dL Albumin 5.0 (3.5-5.1) g/dL Lipase 88 (23-300) U/L Urine Color Yellow (Yellow) Urine Appearance Clear (Clear) Urine pH 6.5 (5.0-9.0) Ur Specific [place] 1.009 (1.001-1.035) Urine Protein Negative (Negative) mg/dL Urine Glucose (UA) Negative (Negative) mg/dL Urine Ketones Negative (Negative) mg/dL Ur Blood (Man) 2+ H (Negative) Urine Nitrate Negative (Negative) Urine Bilirubin Negative (Negative) Urine Urobilinogen 1.0 (<2.0) mg/dL Leukocyte Esterase Rfl Trace H (Negative) THALIA/UL Urine RBC 11-20 H (0-2) /hpf Urine WBC 0-5 (0-3) /hpf Ur Squamous Epith Cells None seen (Few) /hpf Urine Bacteria Rare /hpf Urine Casts 0-2 POC Urine HCG, Qual Negative (Negative) <Yaya Garzon MD - Last Filed: 06/20/24 15:21> Imaging Data Radiologist's impression: ITS Impressions Abdomen/Pelvis CT 06/20/24 14:00 IMPRESSION: 1. No evidence of appendicitis, diverticulitis or intestinal obstruction. <Mary Segura PA-C - Last Filed: 06/20/24 18:38> ITS Impressions Abdomen/Pelvis CT 06/20/24 14:00 IMPRESSION: 1. No evidence of appendicitis, diverticulitis or intestinal obstruction. <Yaya Garzon MD - Last Filed: 06/20/24 15:21> Critical Care Time Critical Care Time Critical Care Time: No <Mary Segura PA-C - Last Filed: 06/20/24 18:38> Discharge Plan Discharge Clinical Impression: Dehydration, Abdominal wall pain <MAMADOU Perez Last Filed: 06/20/24 18:38> Patient Disposition: Home, Self-Care <MAMADOU Perez Last Filed: 06/20/24 18:38> Condition: Stable <MAMADOU Perez Last Filed: 06/20/24 18:38> Instructions: Dehydration (ED), Abdominal Pain (ED) <MAMADOU Perez Last Filed: 06/20/24 18:38> Additional Instructions: Return to the emergency department if you develop severe abdominal pain, severe nausea and vomiting to the point where you are unable to keep down fluids, if you develop chest pain or difficulty breathing, blood in your stool, dizziness or fainting, or if you develop any other new or concerning symptoms as these could be signs of more serious medical illness. Try to stay well hydrated. Drink plenty of water and electrolytes to correct her dehydration <MAMADOU Perez Last Filed: 06/20/24 18:38> Prescriptions: No Action ondansetron 4 mg tablet,disintegrating 4 mg PO Q8H PRN (Reason: nausea and vomiting) Qty: 10 0RF famotidine 10 mg tablet 10 mg PO DAILY Qty: 14 0RF <MAMADOU Perez Last Filed: 06/20/24 18:38> Follow-up/Referrals: PHYSICIAN,RN [facility] [Non-Staff] - Kalia Small MD [Physician] - 1 Week <MAMADOU Perez Last Filed: 06/20/24 18:38>
[2024-06-20 13:19] LABS: BEDSIDEPREGUCG Negative (Negative)
[2024-06-20 13:30] LABS: Basophils Percent Auto 0.3 % (0.2-1.2); Eosinophils Percent Auto 0.4 % (0-4.4); Hemoglobin 16.2 g/dL (12.0-15.0); Immature Granulocyte Absolute 0.04 K/mm3 (0.00-0.031); Immature Granulocyte Percent A 0.4 % (0-0.5); Lymphocytes Absolute Auto 2.61 K/mm3 (0.9-3.2); Lymphocytes Percent Auto 25.8 % (18.3-44.2); Mean Corpuscular HGB Conc 33.8 g/dl (32-36); Mean Corpuscular Hemoglobin 28.8 pg (26-34); Mean Corpuscular Volume 85.4 fl (80-100); Mean Platelet Volume 9.6 fl (7.4-10.4); Monocytes Absolute Auto 0.9 K/mm3 (0.1-0.6); Monocytes Percent Auto 8.7 % (2.6-8.5); Neutrophils Absolute Auto 6.5 K/mm3 (1.3-6.7); Neutrophils Percent Auto 64.4 % (45.5-73.1); Platelet Count Result 290 k/mm3 (150-375); Red Blood Count 5.62 M/mm3 (4.2-5.4); White Blood Count 10.1 K/mm3 (4.5-10.0)
[2024-06-20 13:38] LABS: Alanine Aminotransferase 17 U/L (6-35); Alkaline Phosphatase 63 U/L (38-126); Anion Gap 10 mmol/L (4-12); Aspartate Amino Transferase 32 U/L (14-36); Bilirubin,Total 2.6 mg/dL (0.2-1.3); Blood Urea Nitrogen 15 mg/dL (7-17); Calcium 9.8 mg/dL (8.4-10.2); Carbon Dioxide 27 mmol/L (22-30); Chloride 100 mmol/L (98-107); Estimated CRCL calculation 77 ml/min; Estimated Glomerular Filt Rate > 60; Glucose 87 mg/dL (65-110); Lipase 88 U/L (23-300); Potassium 3.4 mmol/L (3.4-5.0); Sodium 137 mmol/L (137-145)
[2024-06-20 13:41] LABS: Add Urine Microscopic? YES; Appearance Urine Clear (Clear); Bacteria Urine Rare /hpf; Bilirubin Urine Negative (Negative); Blood Urine 2+ (Negative); Color Urine Yellow (Yellow); Glucose Urine UA Negative (Negative); Ketones Urine Negative (Negative); Leukocyte Esterase Ur Trace LEU/UL (Negative); Nitrate Urine Negative (Negative); Non Pathogenic Casts 0-2; Protein Urine Negative (Negative); Specific Grav Ur 1.009 (1.001-1.035); Squamous Epithelial Cell Urine None Seen /hpf (Few); WBC Urine 0-5 /hpf (0-3); pH Urine 6.5 (5.0-9.0)
[2024-06-20 14:00] VITALS: BP 110/68; PULSE 76; RESP 16; TEMP 36.4; O2SAT 98
[2024-06-20 15:47] VITALS: BP 110/76; PULSE 74; RESP 16; TEMP 36.6; O2SAT 98
== END 2024-06-20 15:52 | disposition home or self-care (01) ==
PROVIDERS: Physician Assistant; Emergency Provider Emergency Medicine
DX: E86.0 Dehydration (principal); R10.84 Generalized abdominal pain; F41.9 Anxiety disorder, unspecified; F32.A Depression, unspecified
CPT/HCPCS: 36415; 74177; 80053; 81001; 81025; 83690; 85025; 99284; Q9967

== ENCOUNTER 2024-07-12 11:55 | Emergency (ER) | payer OTHER, SELFPAY ==
--- NOTE | ~2024-07-12 | XR_ITS ---
EXAMINATION: XR chest 2V DATE: 07/12/2024 12:41 INDICATION: Cough. TECHNIQUE: Frontal and lateral views of the chest were obtained. COMPARISON: Chest 2 views 12/31/2017, CT abdomen and pelvis 06/20/2024 FINDINGS: There is no pneumonia, pleural effusion, or pneumothorax. The heart size is normal. IMPRESSION: 1. No acute cardiopulmonary disease. Reviewed, dictated and finalized at location A. [facility]
[2024-07-12 12:06] VITALS: BP 106/67; PULSE 84; RESP 18; TEMP 36.6; O2SAT 100
--- NOTE | 2024-07-12 12:22 | ED.URI ---
HPI - URI/Sore Throat General Chief Complaint: Upper Respiratory Infection Stated Complaint: headache / sore throat/cough/stuffy nose Time Seen by Provider: 07/12/24 12:23 Source: patient, RN notes reviewed and old records reviewed Mode of arrival: ambulatory Limitations: no limitations History of Present Illness HPI Narrative: Patient presents with complaints of 2 days of runny nose, sneezing, sore throat, cough. She reports that she is concerned because her daughter was recently diagnosed with RSV and may be pneumonia . Patient denies any fevers. She is a poor historian, difficult to elicit information from. She is in no distress. She reports that she is here to make sure I do not have RSV or pneumonia or anything like that . It was explained that we do not test adult for RSV at this facility. Patient expressed displeasure. No other concerns or complaints today Related Data Allergies Allergy/AdvReac Type Severity Reaction Status Date / Time No Known Allergies Allergy Unknown Verified 07/12/24 12:00 Review of Systems Review of Systems: All systems reviewed & are unremarkable except as noted in HPI and below Constitutional: Constitutional: Reports as per HPI, Reports no additional constitutional complaints and Reports lethargy ENT: Reports system reviewed and no additional complaints, except as documented, Reports nasal congestion, Reports sinus pressure and Reports sore throat Cardiovascular: Cardiovascular: Reports no additional cardiovascular complaints Respiratory: Respiratory: Reports no additional respiratory complaints Gastrointestinal: Gastrointestinal: Reports no additional gastrointestinal complaints [facility] Past Medical History Medical History Anxiety Bipolar 1 disorder Depression Hyperemesis gravidarum Self-mutilation Suppression of menses Surgical History Surgical History No pertinent past surgical history Family History Family History Sibling Diabetes mellitus Grandparent Diabetes mellitus Grandparent Breast cancer Social History Social History Smoking status: Former smoker Tobacco type: e-cigarettes/vaping Alcohol intake: current Substance use: current Substance use type: marijuana Other substance usage details: daily Do You Feel Safe in your Home?: Yes Lack of Transportation: No Lack of Food: Never True Current Housing: I Have Housing Concerned About Future Housing: No Difficulty Paying Gas/Electric Bills: No Difficulty Paying for Meds: No Currently Unemployed: No Education: High School Diploma/GED Difficulty w/ Childcare or Family Care: No Living arrangements: with family Occupation/Education: occupation Gender identity (if verbalized by the patient): Female Sexual Orientation (if Verbalized by the Patient): Straight or Heterosexual Spiritual care concerns: No Comments At the time of my signature, I reviewed and agree with the nursing past medical, surgical, social, and family history. There is no relevant family history pertinent to the patient complaint. Exam Const: General: cooperative, no acute distress, alert and awake Orientation/consciousness: oriented to person, oriented to place and oriented to time HENMT: Head: normal to inspection Resp: Effort & Inspection: normal respiratory effort and able to speak in complete sentences Auscultation: clear to auscultation bilaterally, no crackles, no rales, no rhonchi and no wheezes Cardio: Palpation: normal PMI Rate: regular rate Rhythm: regular rhythm Heart sounds: S1 normal heart sound present and S2 normal heart sound present Neuro: General: oriented to person, oriented to place and oriented to time Cranial nerves: Yes CN's II-XII intact bilaterally Psych: Appearance: grossly normal Thought process: Normal thought process present Insight: Good insight present (Psych) Judgement: Good judgement present (Psych) Course Course Level of Care: Express Care Visit Vital Signs Vital signs: Vital Signs Temperature 97.8 F 07/12/24 12:06 Pulse Rate 84 07/12/24 12:06 Respiratory Rate 18 07/12/24 12:06 Blood Pressure 106/67 07/12/24 12:06 Pulse Oximetry 100 07/12/24 12:06 Oxygen Delivery Room Air 07/12/24 12:06 Temperature 97.8 F 07/12/24 12:06 Pulse Rate 84 07/12/24 12:06 Respiratory Rate 18 07/12/24 12:06 Blood Pressure 106/67 07/12/24 12:06 Pulse Oximetry 100 07/12/24 12:06 Oxygen Delivery Room Air 07/12/24 12:06 Reviewed MDM - URI/Sore Throat MDM Narrative Medical decision making narrative: reassuring physical exam, no acute findings on chest x-ray. Patient advised to treat symptoms, follow with primary care provider. Emergency department for new or worse symptoms. She is nontoxic and stable for discharge home. Discharge instructions reviewed with patient, as well as provided in writing per nursing staff. The instructions also include specific and strict return/GO TO THE ER as well as f/u information. All questions have been answered, and the patient deny any further questions with discharge and discharge plan. Some parts of this dictation were generated by voice recognition software and may contain typographical and/or grammatical inaccuracies. Differential Diagnosis Differential diagnosis: Likely upper respiratory infection, sinusitis and pharyngitis Medical Records Attestation: I reviewed the patient's medical records. Imaging Data Attestation: I personally reviewed and interpreted this imaging study as follows: My impression: negative Radiologist's impression: [address] [address] XRay Report Signed Patient: Chante Wynne : 2000 MR#: [id number] Age: 23 Acct:[id number] Loc: [facility] ADM Date: 07/12/24Attending Dr: Ordering Physician: Vianca Burris FNP Date of Service: 07/12/24 Procedure(s): XR chest 2V Accession Number(s): [id number] cc: Vianca Burris FNP; Kalia Small MD~ EXAMINATION: XR chest 2V DATE: 07/12/2024 12:41 INDICATION: Cough. TECHNIQUE: Frontal and lateral views of the chest were obtained. COMPARISON: Chest 2 views 12/31/2017, CT abdomen and pelvis 06/20/2024 FINDINGS: There is no pneumonia, pleural effusion, or pneumothorax. The heart size is normal. IMPRESSION: 1. No acute cardiopulmonary disease. Reviewed, dictated and finalized at location A. [facility] COMMUNICATIONS SPECIALIST Dictated By: Beni Amador MD 07/12/24 1244 Signed By: <Electronically signed by Beni Amador MD in OV> Discharge Plan Discharge Clinical Impression: URI (upper respiratory infection) Qualifiers: URI type: unspecified viral URI Qualified Code(s): J06.9 - Acute upper respiratory infection, unspecified Patient Disposition: Home, Self-Care Condition: Stable Instructions: Antibiotic Form, Cold Symptoms (ED) Additional Instructions: Use [id number] medications to treat her symptoms. Follow package instructions. Follow-up with primary care provider. Emergency department for any new or worse symptoms Patient Language: Upper Sorbian Prescriptions: No Action ondansetron 4 mg tablet,disintegrating 4 mg PO Q8H PRN (Reason: nausea and vomiting) Qty: 10 0RF famotidine 10 mg tablet 10 mg PO DAILY Qty: 14 0RF Follow-up/Referrals: Kalia Small MD [Primary Care Provider] - 1 Week Stand Alone Forms: Work/School Release IP Time of Disposition: 12:52
== END 2024-07-12 12:53 | disposition home or self-care (01) ==
PROVIDERS: Emergency Provider Nurse Practitioner Family; PCP Emergency Medicine
DX: J06.9 Acute upper respiratory infection, unspecified (principal); F17.290 Nicotine dependence, other tobacco product, uncomplicated; F12.90 Cannabis use, unspecified, uncomplicated
CPT/HCPCS: 71046; 99213; G0463

== ENCOUNTER 2024-08-18 19:00 | Emergency (ER) | payer OTHER, SELFPAY ==
--- NOTE | ~2024-08-18 | XR_ITS ---
XR chest 2V DATE: 08/18/2024 19:28 INDICATION: Chest pain TECHNIQUE: PA and lateral views COMPARISON: None FINDINGS: Normal heart size. No hilar or mediastinal enlargement. Bilateral hyperinflation. No pulmon hay infiltrate or consolidation, pleural effusion or pulmonary vascular congestion or pneumothorax is detected. There is mild thoracic dextroscoliosis and mild lumbar levoscoliosis. IMPRESSION: Bilateral hyperinflation; no active cardiopulmonary disease Reviewed, dictated and finalized at location [facility] [facility] [employer]
[2024-08-18 19:08] VITALS: BP 117/75; PULSE 88; RESP 16; TEMP 37.4; O2SAT 100
--- NOTE | 2024-08-18 19:10 | ED.URI ---
HPI - URI/Sore Throat General Chief Complaint: Chest Pain Stated Complaint: chest pain Time Seen by Provider: 08/18/24 19:10 Source: patient Mode of arrival: ambulatory Limitations: no limitations History of Present Illness HPI Narrative: 23-year-old female presents with complaint of left-sided chest pain for 3-4 days. Reports that her primary care physician is aware of chest pain and told her that if chest pain gets worse or is not improving to go to urgent care for an EKG. Patient denies shortness of breath. Reports that she has had nasal congestion and a mild cough for the past 3-4 days. Afebrile. Positive for body aches and chills. Denies nausea vomiting. Patient is shaking in exam room. Patient states that she has a history of anxiety. Is not currently taking any medications for it. Patient's boyfriend thinks that she should take medications to treat her anxiety but patient does not feel the same. She also states that she sees a counselor for her anxiety and her counts are also does not feel that she needs to take medication. She just states her anxiety has been bad the last few days related to the chest pain. Patient states I do not know if it is my heart or my anxiety or if I pulled a muscle that is making me chest hurt . Patient states that her daughter is large and she carries around a lot often on the left side. Patient has tried ibuprofen to treat pain and it did help some. All systems reviewed and negative except as noted above. Related Data Allergies Allergy/AdvReac Type Severity Reaction Status Date / Time No Known Allergies Allergy Unknown Verified 08/18/24 19:04 Review of Systems Review of Systems: CONSTITUTIONAL: Denies fever, chills, or sweats. reports fatigue. EYES: Denies visual changes, redness, or discharge. ENT: reports rhinorrhea, congestion. Denies sore throat, or otalgia. CARDIOVASCULAR: reports chest pain. Denies palpitations, or edema. RESPIRATORY: reports cough. Denies dyspnea. GASTROINTESTINAL: Denies abdominal pain, nausea, vomiting, or diarrhea. GENITOURINARY: Denies dysuria or hematuria. SKIN: Denies rash or itching. MUSCULOSKELETAL: Denies back pain, joint pain, or myalgia. NEUROLOGIC: Denies headache, numbness, or weakness. PSYCHIATRIC: Reports anxiety. Denies depression. All other systems reviewed are negative, except as documented in HPI. FOR[facility]LY [facility] Past Medical History Medical History Anxiety Bipolar 1 disorder Depression Hyperemesis gravidarum Self-mutilation Suppression of menses Surgical History Surgical History No pertinent past surgical history Family History Family History Sibling Diabetes mellitus Grandparent Diabetes mellitus Grandparent Breast cancer Social History Social History Smoking status: Former smoker Tobacco type: e-cigarettes/vaping Alcohol intake: current Substance use: current Substance use type: marijuana Other substance usage details: daily Do You Feel Safe in your Home?: Yes Lack of Transportation: No Lack of Food: Never True Current Housing: I Have Housing Concerned About Future Housing: No Difficulty Paying Gas/Electric Bills: No Difficulty Paying for Meds: No Currently Unemployed: No Education: High School Diploma/GED Difficulty w/ Childcare or Family Care: No Living arrangements: with family Occupation/Education: occupation Gender identity (if verbalized by the patient): Female Sexual Orientation (if Verbalized by the Patient): Straight or Heterosexual Spiritual care concerns: No Comments At time of signature, agree with nursing past medical, surgical, social and family history. There is no relevant family history pertinent to the presenting complaint. Exam Narrative: GENERAL: This is a well-nourished, well-developed patient, patient tearful but no acute distress HEAD: normocephalic, atraumatic. EYES: PERRL. Sclera clear/white. Vision is grossly intact. EARS: External ears normal, auditory canals clear and without drainage, TMs normal without perforation. Hearing grossly intact. NOSE: External nose normal with Mild congestion, clear nasal drainage THROAT: Mucous membranes moist, posterior pharynx clear. NECK: Neck supple, non-tender without lymphadenopathy, masses or thyromegaly. CARDIOVASCULAR: Regular rate and rhythm without murmurs, gallops, or rubs. RESPIRATORY: Clear to auscultation. Breath sounds equal bilaterally. No wheezes, rales, or rhonchi. SKIN: warm, Dry, intact with no suspicious lesions or rash, good texture and turgor. NEURO: awake, alert, and oriented to person, place and time. There were no obvious focal neurologic abnormalities. EXTREMITIES: No joint tenderness, effusion, or edema noted. Course Course Level of Care: Express Care Visit Vital Signs Vital signs: Vital Signs Temperature 37.4 C 08/18/24 19:08 Pulse Rate 88 08/18/24 19:08 Respiratory Rate 16 08/18/24 19:08 Blood Pressure 117/75 08/18/24 19:08 Pulse Oximetry 100 08/18/24 19:08 Oxygen Delivery Room Air 08/18/24 19:08 Temperature 37.4 C 08/18/24 19:08 Pulse Rate 88 08/18/24 19:08 Respiratory Rate 16 08/18/24 19:08 Blood Pressure 117/75 08/18/24 19:08 Pulse Oximetry 100 08/18/24 19:08 Oxygen Delivery Room Air 08/18/24 19:08 reviewed MDM - URI/Sore Throat MDM Narrative Medical decision making narrative: Chest x-ray negative for pneumonia. Influenza and COVID test negative. Discussed results with patient. EKG normal sinus rhythm with sinus arrhythmia. Discussed this with patient. Recommend to follow up her primary care physician for further evaluation. Patient is well-appearing, no respiratory distress. Patient would like to try medications to treat costochondritis. Does bleed that other her chest discomfort is related to carrying her child. Reports tenderness on palpation and with movement. Patient is aware of diagnosis, understands and agrees to treatment plan. Anticipatory guidance given. Patient agrees to follow-up as directed and is aware of reasons to seek care at the emergency department. Portions of this record may have been created with voice recognition software Lab Data Labs: Lab Results 08/18/24 Range/Units 19:43 POC Influenza A Ag Negative (Negative) POC Influenza B Ag Negative (Negative) POC SARS CoV-2 Ag Negative (Negative) Imaging Data My impression: Agree with radiologist Radiologist's impression: XR chest 2V DATE: 08/18/2024 19:28 INDICATION: Chest pain TECHNIQUE: PA and lateral views COMPARISON: None FINDINGS: Normal heart size. No hilar or mediastinal enlargement. Bilateral hyperinflation. No pulmonary infiltrate or consolidation, pleural effusion or pulmonary vascular congestion or pneumothorax is detected. There is mild thoracic dextroscoliosis and mild lumbar levoscoliosis. IMPRESSION: Bilateral hyperinflation; no active cardiopulmonary disease Discharge Plan Discharge Clinical Impression: Acute costochondritis, Anxiety Patient Disposition: Home, Self-Care Condition: Stable Instructions: Costochondritis (ED) Additional Instructions: take medications as prescribed. Alternate between ice and heat. Do not drive while taking methocarbamol, this medication is a muscle relaxant may make you drowsy. Do stretching exercises as tolerated. Follow-up with your primary care physician if symptoms are not improving. For any worsening of pain go to the ER. Patient Language: Ukrainian Prescriptions: New naproxen 500 mg tablet 500 mg PO BID PRN (Reason: pain) Qty: 30 0RF methocarbamol 500 mg tablet 500 mg PO Q6H PRN (Reason: muscle pain/spasm) Qty: 30 0RF methylprednisolone [Medrol ([place])] 4 mg tablets,dose pack See Rx Instructions PO .COMPLEX Qty: 21 0RF Rx Instructions: orally per package directions No Action ondansetron 4 mg tablet,disintegrating 4 mg PO Q8H PRN (Reason: nausea and vomiting) Qty: 10 0RF famotidine 10 mg tablet 10 mg PO DAILY Qty: 14 0RF Follow-up/Referrals: Kalia Small MD [Primary Care Provider] - Time of Disposition: 20:07
--- NOTE | 2024-08-18 19:12 | ECG_ITS ---
Test Date: 2024-08-18 19:17:44 Measurements Intervals [place] Rate: 72 P: 51 WA: 143 QRS: 60 QRSD: 90 T: 43 QT: 347 QTc: 381 Interpretive Statements SINUS RHYTHM WITH SINUS ARRHYTHMIA POSSIBLE RIGHT VENTRICULAR CONDUCTION DELAY [RSR (QR) IN V1/V2] ABNORMAL ECG Electronically Signed On 08-19-2024 10:44:24 CLINICAL REVIEW NURSE by Jin Marcus M.D.
[2024-08-18 19:44] LABS: EDCOVIDSCREEN Negative (Negative); EDINFLUASCREEN Negative (Negative); EDINFLUBSCREEN Negative (Negative)
== END 2024-08-18 20:09 | disposition home or self-care (01) ==
PROVIDERS: Emergency Provider Nurse Practitioner Family; PCP Emergency Medicine
DX: M94.0 Chondrocostal junction syndrome [Tietze] (principal); F41.9 Anxiety disorder, unspecified; Z87.891 Personal history of nicotine dependence; Z20.822 Contact with and (suspected) exposure to COVID-19
CPT/HCPCS: 71046; 87426; 87804; 93005; 99213; G0463

== ENCOUNTER 2024-08-20 18:26 | Emergency (ER) | payer OTHER, SELFPAY ==
[2024-08-20 18:36] VITALS: BP 143/94; PULSE 71; RESP 17; TEMP 37.2; O2SAT 100
--- NOTE | 2024-08-20 18:36 | ED_ITS ---
HPI - General Adult General Chief complaint: Skin/Abscess/Foreign Body Stated complaint: belly button swelling Time Seen by Provider: 08/20/24 18:36 Source: patient Mode of arrival: ambulatory Limitations: no limitations History of Present Illness HPI narrative: 23-year-old female patient presents to [facility] with complaints of belly button swelling and bloating. patient states she tried to put in her belly button ring today and noticed that her belly was swollen . Patient was seen in the [facility] on Wednesday for left upper chest pain and she was diagnosed with costochondritis and given muscle relaxers and naproxen. Patient states the medication has been helping but states that has not been helping her belly pain. Patient states she does have chronic abdominal pain and had a CT done last month to rule out appendicitis and that was negative. Patient is supposed to follow-up with the GI specialist but has not yet. Patient states she has been taking probiotics since seen the doctor the last time. Denies taking any MiraLax. Patient states she did have little bit of diarrhea this morning. Denies fevers, body aches or chills. Denies chest pain or shortness of breath Related Data Allergies Allergy/AdvReac Type Severity Reaction Status Date / Time No Known Allergies Allergy Unknown Verified 08/20/24 18:36 Review of Systems Review of Systems: CONSTITUTIONAL: Denies fever, chills, or sweats. EYES: Denies visual changes, redness, or discharge. ENT: Denies rhinorrhea, congestion, sore throat, or otalgia. CARDIOVASCULAR: Denies chest pain, palpitations, or edema. RESPIRATORY: Denies cough or dyspnea. GASTROINTESTINAL: Positive abdominal pain, denies nausea, vomiting, or diarrhea. GENITOURINARY: Denies dysuria or hematuria. SKIN: Denies rash or itching. MUSCULOSKELETAL: Denies back pain, joint pain, or myalgia. NEUROLOGIC: Denies headache, numbness, or weakness. PSYCHIATRIC: Denies anxiety or depression. [facility] Past Medical History Medical History Anxiety Bipolar 1 disorder Depression Hyperemesis gravidarum Self-mutilation Suppression of menses Surgical History Surgical History No pertinent past surgical history Family History Family History Sibling Diabetes mellitus Grandparent Diabetes mellitus Grandparent Breast cancer Social History Social History Smoking status: Former smoker Tobacco type: e-cigarettes/vaping Alcohol intake: current Substance use: current Substance use type: marijuana Other substance usage details: daily Do You Feel Safe in your Home?: Yes Lack of Transportation: No Lack of Food: Never True Current Housing: I Have Housing Concerned About Future Housing: No Difficulty Paying Gas/Electric Bills: No Difficulty Paying for Meds: No Currently Unemployed: No Education: High School Diploma/GED Difficulty w/ Childcare or Family Care: No Living arrangements: with family Occupation/Education: occupation Gender identity (if verbalized by the patient): Female Sexual Orientation (if Verbalized by the Patient): Straight or Heterosexual Spiritual care concerns: No Exam Narrative: GENERAL: Well-appearing, well-nourished, and in no acute distress. HEAD: Normocephalic, atraumatic. EYES: PERRLA and EOMI. ENT: Nares clear, no rhinorrhea or epistaxis. Mucous membranes moist. NECK: Supple. No lymphadenopathy CHEST: Clear to auscultation. No respiratory distress. HEART: Regular rate and rhythm. No murmur heard. Normal peripheral pulses. ABDOMEN: Soft, flat, appears slightly distended. No guarding, rebound tenderness, or rigid. No pulsatilla masses. Bowel sounds present in all four quadrants. No organomegaly. Negative Weeks?s sign. No periumbicial tenderness. patient has tenderness on palpation all over no specific area. No Supra public tenderness or distension. Good femoral pulses bilaterally. No hernia noted. No scars or surface trauma. EXTREMITIES: Normal range of motion. No edema. SKIN: Warm, dry, no rash. NEURO: No focal deficits. Alert and oriented x3. Course Course Level of Care: Express Care Visit Vital Signs Vital signs: Vital Signs Temperature 37.2 C 08/20/24 18:36 Pulse Rate 71 08/20/24 18:36 Respiratory Rate 17 08/20/24 18:36 Blood Pressure 143/94 H 08/20/24 18:36 Pulse Oximetry 100 08/20/24 18:36 Oxygen Delivery Room Air 08/20/24 18:36 Temperature 37.2 C 08/20/24 18:36 Pulse Rate 71 08/20/24 18:36 Respiratory Rate 17 08/20/24 18:36 Blood Pressure 143/94 H 08/20/24 18:36 Pulse Oximetry 100 08/20/24 18:36 Oxygen Delivery Room Air 08/20/24 18:36 Vital signs reviewed. Medical Decision Making MDM Narrative Medical decision making narrative: Discussed with patient that she does have good bowel sounds at this time and the fact that she is not running any fevers is reassuring. 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 Discussed with patient that if her symptoms worsen and she develops fevers, vomiting, black tarry stools or any other worsening abdominal pain she needs to be seen in the emergency department for further evaluation. Discussed with patient that the Urgent Care does not have any CT scan or blood work that we can assess abdominal pain properly. Discussed with patient I would recommend trying some MiraLax to see if this helps with the bloating and release some of her gas symptoms. Patient verbalized understanding denies any other questions or concerns at this time. Differential Diagnosis Differential Diagnosis: Differential diagnosis: Appendicitis, ovarian torsion, gallbladder disease, ovarian torsion, pancreatitis, lower lobe pneumonia,AAA, AMI or ACS, DKA, diverticulitis. Vital Signs Vital Signs: Vital Signs Temperature 37.2 C 08/20/24 18:36 Pulse Rate 71 08/20/24 18:36 Respiratory Rate 17 08/20/24 18:36 Blood Pressure 143/94 H 08/20/24 18:36 Pulse Oximetry 100 08/20/24 18:36 Oxygen Delivery Room Air 08/20/24 18:36 Temperature 37.2 C 08/20/24 18:36 Pulse Rate 71 08/20/24 18:36 Respiratory Rate 17 08/20/24 18:36 Blood Pressure 143/94 H 08/20/24 18:36 Pulse Oximetry 100 08/20/24 18:36 Oxygen Delivery Room Air 08/20/24 18:36 Critical Care Time Critical Care Time Critical Care Time: No Discharge Plan Discharge Clinical Impression: Abdominal bloating Patient Disposition: Home, Self-Care Condition: Stable Instructions: Antibiotic Form, Gas and Bloating (ED) Additional Instructions: Gas and bloating can be uncomfortable and embarrassing problems. All people pass gas, but some people produce more gas than others, sometimes enough to cause distress. It is normal to pass gas from 6 to 20 times per day. Excess gas usually is not caused by a serious health problem. Gas and bloating usually are caused by something you eat or drink, including some natural health products and medicines. Gas and bloating are usually harmless and go away without treatment. However, changing your diet can help end the problem. Some epxf-azt-[id number] medicines can help prevent gas and relieve bloating. Follow-up care is a luo part of your treatment and safety.?Be sure to make and go to all appointments, and call your doctor or nurse advice line (811?in most [place] and [facility]) if you are having problems. It's also a good idea to know your test results and keep a list of the medicines you take. How can you care for yourself at home? Keep a food diary if you think a food gives you gas. Write down what you eat or drink. Also record when you get gas. If you notice that a food seems to cause your gas each time, avoid it and see if the gas goes away. Examples of foods that cause gas include: Fried and fatty foods. Peas, lentils, and beans. Vegetables such as artichokes, asparagus, broccoli, [place] sprouts, cabbage, cauliflower, cucumbers, green peppers, onions, radishes, and raw potatoes. Fruits such as apricots, bananas, melons, peaches, pears, prunes, and raw apples. Wheat and wheat bran. Carbonated drinks, fruit drinks, beer, and red wine. Packaged foods that contain lactose, such as breads, cereal, and salad dressing. Sugar and sugar substitutes.Try soaking beans in water overnight. Drain the soaking water, and cook the soaked beans in new water. This may help decrease gas and bloating.If you have problems with lactose, avoid dairy products such as milk and cheese.Try not to swallow air. Do not drink through a straw, gulp your food, or chew gum.Take an dxhy-xbq-nmpagxb medicine. Read and follow all instructions on the label. Food enzymes, such as Beano, can be added to gas-producing foods to prevent gas. Simethicone, such as Gas-X, can relieve bloating by making you burp. Be careful when you take rwmj-wxq-onnkcgl antacid medicines. Many of these medicines have aspirin in them. Read the label to make sure that you are not taking more than the recommended dose. Too much aspirin can be harmful. Activated charcoal tablets, such as CharcoCaps, may decrease odour from gas you pass. If you have problems with lactose, you can take medicines such as Lactaid with dairy products to prevent gas and bloating.Get some exercise regularly. When should you call for help? Call?911?anytime you think you may need emergency care. For example, call if: You have gas and signs of a heart attack, such as: Chest pain or pressure. Sweating. Shortness of breath. Nausea or vomiting. Pain that spreads from the chest to the neck, jaw, or one or both shoulders or arms. Dizziness or light-headedness. A fast or uneven pulse.After calling?911, chew 1 adult-strength aspirin. Wait for an ambulance. Do not try to drive yourself.You have severe belly pain. Patient Language: French Prescriptions: No Action naproxen 500 mg tablet 500 mg PO BID PRN (Reason: pain) Qty: 30 0RF methocarbamol 500 mg tablet 500 mg PO Q6H PRN (Reason: muscle pain/spasm) Qty: 30 0RF methylprednisolone [Medrol ([place])] 4 mg tablets,dose pack See Rx Instructions PO .COMPLEX Qty: 21 0RF Rx Instructions: orally per package directions ondansetron 4 mg tablet,disintegrating 4 mg PO Q8H PRN (Reason: nausea and vomiting) Qty: 10 0RF famotidine 10 mg tablet 10 mg PO DAILY Qty: 14 0RF Follow-up/Referrals: Kalia Small MD [Primary Care Provider] - Time of Disposition: 18:57
== END 2024-08-20 18:58 | disposition home or self-care (01) ==
PROVIDERS: Emergency Provider Nurse Practitioner Family; PCP Emergency Medicine
DX: R14.0 Abdominal distension (gaseous) (principal); F12.90 Cannabis use, unspecified, uncomplicated; Z87.891 Personal history of nicotine dependence
CPT/HCPCS: 99211; G0463

== ENCOUNTER 2024-10-26 11:53 | Emergency (ER) | payer OTHER, SELFPAY ==
--- NOTE | ~2024-10-26 | US_ITS ---
FIRST TRIMESTER ULTRASOUND 10/26/2024 13:38 CDT Ordering provider: Mary Jane Osorio PA-C History: . 9 weeks, lower abd cramping, n/v . Comparison: None. FINDINGS: INTRAUTERINE GESTATIONAL SAC: Present. Measures 3.5 cm. YOLK SAC: Present. Measures 0.8 cm. POLE: Present. Measures 1.88 cm. heart rate is 178 bpm. GESTATIONAL AGE BY LMP: 8 weeks and 2 days. GESTATIONAL AGE BY TODAY'S US: 8 weeks and 3 days. YANIRA is June 04, 2025. UTERUS: The uterus measures 12.7x 6.8x 9.4 in length which is within normal limits. No myometrial mas ses. FREE FLUID: None. OVARIES: Normal in size with the right measuring 3.1x 1.8x 2.7 cm and the left measuring 2.5x 1.7x 1. 9 cm. Doppler flow is demonstrated within both ovaries. ADNEXAL MASSES: None. IMPRESSION: Intrauterine with yolk sac and pole. Heart rate 178 bpm. Gestational age is 8 weeks a nd 3 days. YANIRA is June 04, 2025. Reviewed, dictated and finalized at location A. IMPRESSION: Intrauterine with yolk sac and pole. Heart rate 178 bpm. Gestat ional age is 8 weeks and 3 days. YANIRA is June 04, 2025.
[2024-10-26 11:55] VITALS: BP 148/78; PULSE 70; RESP 16; O2SAT 100
[2024-10-26 12:14] VITALS: TEMP 36.4
[2024-10-26 12:26] LABS: Basophils Absolute Auto 0.1 K/mm3 (0.0-0.1); Basophils Percent Auto 0.3 % (0.2-1.2); Hematocrit 41.3 % (37.0-47.0); Hemoglobin 14.5 g/dL (12.0-15.0); Immature Granulocyte Percent A 0.6 % (0-0.5); Lymphocytes Absolute Auto 0.59 K/mm3 (0.9-3.2); Lymphocytes Percent Auto 3.3 % (18.3-44.2); Mean Corpuscular HGB Conc 35.1 g/dl (32-36); Mean Corpuscular Hemoglobin 29.1 pg (26-34); Mean Corpuscular Volume 82.9 fl (80-100); Mean Platelet Volume 10.2 fl (7.4-10.4); Monocytes Absolute Auto 0.3 K/mm3 (0.1-0.6); Monocytes Percent Auto 1.8 % (2.6-8.5); Neutrophils Absolute Auto 16.6 K/mm3 (1.3-6.7); Platelet Count Result 240 k/mm3 (150-375); Red Blood Count 4.98 M/mm3 (4.2-5.4); Red Cell Distribution Width 12.2 % (11.5-14.5); White Blood Count 17.7 K/mm3 (4.5-10.0)
[2024-10-26 12:38] LABS: BEDSIDEPREGUCG Positive (Negative)
--- NOTE | 2024-10-26 12:38 | PC.NURSE ---
Lab called to add on hcg quantitative.
--- OUTSIDE RECORDS SUMMARY | 2024-10-26 12:38 | XMS_ITS | Continuity of Care Document ---
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 Name Role Phone Maury Lund MD Unavailable Unavailable Allergies, Adverse Reactions, Alerts Substance Reaction Status Criticality No Known Allergies Active No Inform ation Medications Medication Instructions Dosage Effective Dates (start - stop) Status Comments Lexapro 5 mg tablet take 1 tablet by ora l route every day 5 MG - Active Problems Condition Type Effective Dates (start - stop) Clini alisa Status Comments No Known Problems Procedures Procedure Date PREV VISIT, EST, AGE 18-39 OFFICE/OUTPATIENT VISIT, EST OFFICE/OUTPATIENT VISIT, EST OFFICE/OUTPATIENT VISIT, EST OFFICE/OUTPATIENT VISIT, EST PREV VISIT, EST, AGE 14- OFFICE/OUTPATIENT VISIT, EST OFFICE/OUTPATIENT VISIT, EST OFFICE/OUTPATIENT VISIT, EST PREV VISIT, EST, AGE 12-17 PREV VISIT, EST, AGE 12-17 PREV VISIT, EST, AGE 12- PREV VISIT, EST, AGE 12-17 PREV VISIT, NEW, AGE 5-11 Advance Directives Directive Yes / No Effective Date File Name No Information Encounters Encounter Description Practice Location Reason(s) For Visit Diagnoses Date Provider Providers Copied on Encounter PREV VISIT, EST, AGE 18-39 [facility], [address], [place], [place], [id number], [place] tel:[phone] [facility] Medicine physical (chief complaint) Encounter for general adult medical examination without abnormal findings 1 Kevon Mendiola. [address], [place], [place], [address] , [place]. tel:[phone] [facility], [address], [place], [place], [address], [place] tel:[phone] [facility] No Information Jul- 0 Kevon Mendiola. [address], [place], [place], [address] , [place]. tel:[phone] OFFICE/OUTPA TIENT VISIT, [facility], [address], [place], [place], [address], [place] tel:[phone] [facility] UTi1 (chief complaint) anxiety1 (chief complaint) Urinary tract infectionGeneralize d Anxiety Disorder Jun- 0 Kevon Mendiola. [address], [place], [place], [address] , [place]. tel:[phone] OFFICE/OUTPA TIENT VISIT, [facility], [address], [place], [place], [address], [place] tel:[phone] [facility] back pain1 (chief complaint) Abdominal painMuscle spasm of back Apr-2 0 Kevon Mendiola. [address], [place], [place], [address] , [place]. tel:[phone] OFFICE/OUTPA TIENT VISIT, [facility], [address], [place], [place], [address], [place] tel:[phone] [facility] anxiety1 (chief complaint) immunizati on1 (chief complaint) Generalized Anxiety DisorderEncounter for immunization Apr- 0 Kevon Mendiola. [address], [place], [place], [address] , [place]. tel:[phone] OFFICE/OUTPA TIENT VISIT, [facility], [address], [place], [place], [address], [place] tel:[phone] [facility] bili1 (chief complaint) hemoglobin 1 (chief complaint) hematuria1 (chief complaint) anxiety1 (chief complaint) Generalized Anxiety DisorderHematuriaDi sorder of bilirubin metabolism, unspecifiedSecondar y polycythemia 0 Kevon Contreras [address], [place], [place], [address] , [place]. tel:[phone] PREV VISIT, EST, AGE 12-17 [facility], [address], [place], [place], [address], [place] tel:[phone] [facility] Physical (chief complaint) Encntr for routine child health exam w/o abnormal findings 0 Kevon Mendiola. [address], [place], [place], [address] , [place]. tel:[phone] Referring Provider: [address], [place], [place], [address]. tel:[phone] OFFICE/OUTPA TIENT VISIT, [facility], [address], [place], [address], [place] tel:[phone] [facility] anxiety1 (chief complaint) urinary symptoms1 (chief complaint) Urinary frequencyGeneralize d Anxiety Disorder 9 Kevon Mendiola. [address], [place], [place], [address] , [place]. tel:[phone] Referring Provider: Silva [address], [place], [place], [address]. tel:[phone] OFFICE/OUTPA TIENT VISIT, [facility], [address], [place], [place], [address], [place] tel:[phone] [facility] urinary urgency1 (chief complaint) anxiety1 (chief complaint) Urinary frequencyDepression Leukorrhea 2-201 9 Kevon Mendiola. [address], [place], [place], [address] , [place]. [phone] Referring Provider: Silva [address], [place], [place], [address]. tel:[phone] OFFICE/OUTPA TIENT VISIT, EST [facility], [address], [place], [place], [address], [place] tel:[phone] [facility] pyelonephr itis1 (chief complaint) anxiety1 (chief complaint) PyelonephritisGener alized Anxiety Disorder 9 Kevon Mendiola. [address], [place], [address] , [place]. [phone] Referring Provider: Silva [address], [place], [place], [address]. tel:[phone] PREV VISIT, EST, AGE 12-17 [facility], [address], [place], [place], [address], [place] tel:[phone] [facility] PHysical (chief complaint) Encntr for routine child health exam w/o abnormal findings 8 Kevon Mendiola. [address], [place], [place], [address] , [place]. [phone] Referring Provider: Silva [address], [place], [place], [address]. tel:[phone] PREV VISIT, EST, AGE 12-17 [facility], [address], [place], [address], [place] tel:[phone] [facility] Physical (chief complaint) Encntr for routine child health exam w/o abnormal findings 7 Kevon Mendiola. [address], [place], [address] , [place]. [phone] Referring Provider: Silva [address], [place], [place], [address]. tel:[phone] PREV VISIT, EST, AGE 12-17 [facility], [address], [place], [address], [place] tel:[phone] [facility] PHysical (chief complaint) Encntr for routine child health exam w/o abnormal findings 6 Kevon Mendiola. [address], [place], [address] , [place]. tel:[phone] Referring Provider: Maury Lund, [address], [place], [place], [address]. tel:[phone] PREV VISIT, EST, AGE 12-17 [facility], [address], [place], [place], [address], [place] tel:[phone] [facility] Medicine PHysical (chief complaint) Routine medical exam 5 Kevon Mendiola. [address], [place], [place], [address] , [place]. tel:[phone] Referring Provider: Maury Lund [address], [place], [place], [address]. tel:[phone] PREV VISIT, NEW, AGE 5-11 [facility], [address], [place], [place], [address], [place] tel:[phone] [facility] Physical (chief complaint) Routine Medical ExamRoutine Medical Exam 4 Kevon Mendiola. [address], [place], [place], [address] , [place]. tel:[phone] Referring Provider: [address], [place], [place], [address]. tel:[phone] Family History Family Member Type Diagnosis Age At Onset Father Problem (finding) Alive and well Sister Problem (finding) Alive and well Mother Problem (finding) Alive and well Payers Payer name Insurance type Covered alliance party ID Authoriza tion(s) No Information Social History Type Description Quantity Date Captured Comments Alcohol Use Details No Caffeine Use Details Unknown Tobacco Use Status Never smoked tobacco 2020 Smoking Status Never smoker Sex Female Vital Signs Date / Time: Height Weight BMI Pulse Rate Blood Pressure Temperature Respiratory Rate Body Surface Area Head Circumference BMI percentile Pulse Ox Inhaled Ox 12:23 PM 60.00 in 98.00 lbs 19.1 4 kg/m eter (2) 20 Chief Complaint And Reason For Visit From encounter dated '09/11/2020 12:14'. physical (chief complaint). Description: Pt needs annual physical. Pt has mild anxiety and depression Pt doing ok with lexapro. 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 .. Pt overall feels well. Pt denies any complaints Plan Of Treatment Date Type Action Status Referral Ordered: [place] [facility] ordered History Of Present Illness Encounter Date Complaint History Of Prese nt Illness physical Pt needs annual physical. Pt has mild anxiety and depression Pt doing ok with lexapro. 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 .. Pt overall feels well. Pt denies any complaints anxiety1 Pt has mild anxi ety and depression Pt doing well with lexapro Pt denies any suicidal or homicidal thought. Pt denies any crying spells UTi1 Pt states that s he has mild dysuria, urinary urgency and frequency last week, which resolved completely now. PT denies any urinary symptoms .Pt denies any flank pain. Pt started her period yesterday and she feels that her urinary symptoms completely resolved since two days ago .Pt denies any fever, chill back pain1 Pt c/o acute ons et of left flank pain since 3 days ago .Pt denies any injury Pt sneezed/coughed and felt acute left flank pain 3 days ago Pt denies any L spine pain around the center of her back pt feels the pain is in left flank area only and is sore and sharp and also dull. Pt denies any pain with body movement .Pt denies any urinary symptoms Pt denies any fever, chill. Pt denies any leg numbness or tingling or any nausea, vomiting, etc Pt denies any headache. Pt states that she has 2-3 baseline pain now, but worse in the morning when she gets up. immunization1 her mom received a letter from school regarding missing vaccine and she was given a deadline to get the vaccine done. Mom is not sure what type of vaccine she needs. anxiety1 Pt has chronic a nxiety and depression, Pt takes lexapro and doing ok Pt denies any suicidal or homicidal thought. Pt denies any crying spells anxiety1 Pt has chronic a nxiety and depression Pt has been taking lexapro 10 mg daily and she feels well Pt is seeing counseling pt denies any suicidal or homicidal thought Pt denies any crying spells. Pt states that she is about to graduate and move out and get a job in 6 months and she is happier now .Pt wants to get off lexapro. Pt states that she feels that something else is controlling her mood with lexapro hematuria1 Pt denies any he maturia or any UTi symptoms or flank pain. hemoglobin1 Pt has slightly high hemoglobin pt has not done lab yet. pt denies any family history of hemachromatosis bili1 Pt has mildly hi gh bili Pt denies any jaundice or abdominal pain. Pt has not done lab yet Physical Pt needs annual physical. Pt has chronic anxiety and depression. Pt stopped taking lexapro about one month ago on her own. Pt had argument with her mom and she cut her wrist and she told her mom that she wants to kill herself 3 days ago. Pt was transferred to ER via ambulance Pt has frequent anger outburst and she argues with mom a lot about everything .Pt also has not seen counselor for several months Pt states that she was doing better when she was taking lexapro but she run out and she just did get along with her mom better with better mood when she was taking lexapro. Pt states that she really does not really wanted to kill herself. She just said that out of anger Pt denies any self injury thought or any suicidal thought currently. Pt just started to talk to her counselor at [facility] and she will see psychiatrist soon ,Pt wants to get back to lexapro. Pt also had mildly high bili and high hemoglobin at ER. Pt states that she has been itching all over her body from head to toe and between fingers and inner thigh for two weeks. Pt states that itching is worse night .Pt denies any sick contact. Pt notices some small hive/welts that pops up intermittently. Pt denies any sob or any trouble with swallowing. urinary symptoms1 Pt states that urinary symptoms resolved Pt did not do lab and UA. Pt denies any flank pain anxiety1 pt has chronic a nxiety and depression. Pt is seeing counseling at [facility] and [facility] Pt states that lexapro is helping her with mood Pt feels better mood and happier Pt feels less stressed Pt denies any suicidal or homicidal thought. Pt denies any crying spells. Mom states that she thinks that her mood is better and also everyone around her is seeing difference. Pt states that she can tolerate people more. anxiety1 Pt feels anxious and slightly depressed for long time Pt feels lack of motivation to do anything Pt has crying spells for no reason. Pt states that her mom is on her case too much and she feels very annoyed by that. She feels that she does not have her own space to do anything. Pt has frequent crying spells Pt has angry outburst frequent at home and at school. Her school counselor told her mom that she has difficulty control her emotion at school, Pt is doing counseling currently but does not think it helps Pt run away from home multiple times recently Pt denies any suicidal or homicidal thought urinary urgency1 Pt has frequent urination urgency and urinary frequency for the past several weeks. Pt denies any flank pain Pt also has vague dysuria and she went to urgent care and she was treated for UTi with abx but her urine cx was actually negative. Pt drinks a lot of caffeine at work. Pt works at [employer] and she has to hold her urine a lot and then she has urgency and sometimes she cannot wait until bathroom before she pee on herself recently Pt denies any flank pain, fever. Pt denies any vaginal blisters. Pt denies any excessive vaginal discharge Pt has regular period. Pt denies any pelvic pain anxiety1 Pt has been havi ng difficulty with coping skills in school for the past several months. Pt feels mad and angry and she argues a lot in school. Pt is not doing well academically in school either. Pt feels getting work up very easily in school and she gets into argument with people a lot. Mom thinks that she is being over dramatically and taking thing too seriously .Pt states that she gets very angry when she argues and sometimes and she feels some numbness around arm and legs during the heat of the moment Pt denies any headache or vision change or chest pain. Pt does hyperventilating sometimes during stress pt denies any motor weakness. Pt denies any abd pain pt does not use drug, alcohol or tobacco. Pt has regular period. Pt is NOT sexually active. Pt denies any crying spells Pt denies any self injury or suicidal or homicidal behavior pyelonephritis1 Pt had history o f acute pyelonephritis about 6 months ago. Pt did not do repeat UA. Pt denies any flank pain or any fever, chill, urinary symptoms or flank pain. PHysical Pt needs annual physical. pt c/o urinary frequency, urgency and right flank pain for 5-6 days. Pt has fever as high as 102 Pt denies any sore throat, headache. Pt feels muscle pain all over. Pt went to ER and was diagnosed with pyelo. Pt did have e coli in her urine Pt started bactrim yesterday. Pt states that she feels horrible. Pt denies any nausea, vomiting. Pt denies any other complaints Physical Pt needs annual physical. Pt and mom both think that she needs some counseling due to mood swings and irritability. pt has some family situation change and her mom moved in with boyfriend and she has been getting angry easily. Pt still doing fairly ok with school work Pt does not drink alcohol, use drug or smoke. Pt does not do sports now. Pt has regular period. Pt denies any RN MED SURG issue. Pt feels depressed sometimes but no crying spells. Pt denies any suicidl or homicidal or self injury behavior. PHysical Pt needs annual physical Pt is uptodate with all her shot. Pt decides against HPV shot. Pt has regular period. Pt is on her peirod now. Pt states that she states that if she eats a large portion of food, which usually makes her sick. Pt denies any abd pain. Pt has to eat small portion Pt denies any heart burn. Pt denies any naseua, vomiting. Pt denies anorexia. t denies any other complaints PHysical Pt needs sports physical. 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 Pt denies any illness. Pt denies any chest pain, SOB with exercise. Pt [facility], menctra and also HPV per mom. Pt c/o right knee popping and pain sometimes for the past 4 weeks, especially with dancing. Pt denies any injury. Pt denies any other complaints Instructions Date Instruction Additional Infor mation Increase physical activity Relat ed to Urinary frequency Diet and exercise Related to Bandar lonephritis Diet and exercise Related to Enc ntr for routine child health exam w/o abnormal findings Increase physical activity Relat ed to Encntr for routine child health exam w/o abnormal findings Increase physical activity Relat ed to Encntr for routine child health exam w/o abnormal findings Increase physical activity Relat ed to Encntr for routine child health exam w/o abnormal findings Assessments Type Assessment Date assessment Encounter for genera l adult medical examination without abnormal findings Mental Status Date Cognitive Assessment Orientation - Cassoday ed to time, place, person, situation.
--- OUTSIDE RECORDS SUMMARY | 2024-10-26 12:39 | XMS_ITS | Clinical Summary ---
Author Organization [facility] Address [address] [place] [id number] Care Team Providers Care It Technical Architect Name Role Phone None, Provider MD Primary Care Provider Unavaila ble Allergies No known active allergies Medications ondansetron (ZOFRAN-ODT) 4 MG disintegrating tablet Take 1 tablet (4 mg total) by mouth every 8 (eight) hours as needed for Nausea. 20 tablet Active Social History Tobacco Use Types Packs/Day Years Used Date Smoking Tobacco: Never Smokeless Tobacco: Current Tobacco Cessation:Ready to Q uit: Not Asked; Counseling Given: Not Answered Alcohol Use Standard Drinks/Week Comments Never 0 (1 standard drink = 0.6 oz pur e alcohol) Comments Yes Sex and Gender Information Value Date Recorded Sex Assigned at Not on file Legal Sex Female 7:11 PM CDT Gender Identity Not on file Sexual Orientation Not on file Last Filed Vital Signs Vital Sign Reading Time Taken Comments Blood Pressure 139/89 08/31/2023 9:00 AM MARKETING SALES CONSULTANT Pulse 89 08/31/2023 7:42 AM MARKETING SALES CONSULTANT Temperature 37.3 C (99.2 F) 08/31/2023 6:01 AM MARKETING SALES CONSULTANT Respiratory Rate 16 08/31/2023 7:42 AM MARKETING SALES CONSULTANT Oxygen Saturation 98% 08/31/2023 9:00 AM MARKETING SALES CONSULTANT Inhaled Oxygen Concentration - - Weight 43.1 kg (95 lb) 08/31/2023 6:01 AM MARKETING SALES CONSULTANT Height 152.4 cm (5') 08/31/2023 6:01 AM MARKETING SALES CONSULTANT Body Mass Index 18.55 08/31/2023 6:01 AM MARKETING SALES CONSULTANT Plan of Treatment Health Maintenance Due Date Last Done Comments Cervical Cancer Screening Pap Smear (Age 21 to 29) Every 3 Years 2002 Cervical Cancer Screening 2002 Annual Physical 2005 PHQ-2 (Physician [place]) 2014 HPV Vaccines (2 - 2-dose series) 12/20/2014 06/22/2014 Meningococcal B Vaccine (1 of 2 - Standard) 2018 Hepatitis C 2020 COVID-19 Vaccine (1 - 2023- season) 2024 Influenza Adult (#1) 2024 08/19/2021, 06/22/2014, 06/23/2004 PHQ-2 (Physician [place]) 08/09/2024 DTaP, Tdap and Td Vaccines (7 - Td or Tdap) 08/18/2031 08/18/2021, 02/28/2011, 05/15/2008, Additional history exists RSV Immunization or 60+ Years (1 - 1-dose 75+ series) 2077 Hepatitis B Vaccines Completed 03/20/2003, 2002, 2002 Meningococcal Vaccine Completed 05/07/2020, 014 Pneumococcal Vaccine: Pediatrics (0 to 5 Years) and At-Risk Patients (6 to 64 Years) Aged Out No longer eligible based on patient's age to complete this topic RSV Immunizations Under 20 Months Aged Out No longer eligible based on patient's age to complete this topic Insurance Care Teams It Technical Architect Relationship Specialty Start Date End Date None, Provider, MD PCP - General UNKNOWN PHYSICIAN SPECIALTY 05/28/23
--- OUTSIDE RECORDS SUMMARY | 2024-10-26 12:39 | XMS_ITS | Data Portability ---
Author Organization [facility] Address [address] [place] [address] [place] [address] Care Team Providers Care Woods Boss Name Role Phone CONCETTA BURDEN Primary Care Provider Assessment Encounter Date Assessment Date Assessment LastModified by Organization Details LastModified Time 03/13/2022 03/13/2022 f/u wwe or as needed [email or web address] Not available 03/13/2022 10:48:52 Plan of Treatment Reminders Order Date Submit Date Provider Last Modified By Organization Details Last Modified Time Details Appointments None recorded. Lab None recorded. Referral None recorded. Procedures None recorded. Surgeries None recorded. Imaging US, obstetric, biophysical profile 2020 021 [email or web address] [facility] [address], [address], [place], [address], 11:05:37 Medication Orders Slynd 4 mg (28) tablet 2021 022 [facility][id number], [address], [place], [phone], 10:48:19 ondansetron 4 mg disintegrat ing tablet 2021 022 [facility] #30871, [address], [place], [id number], 10:28:58 Prozac 10 mg capsule 2021 022 [email or web address] 1 [facility] #38379, [address], [place], [phone], 10:28:41 Patient TargetsNo targets recorded. Patient InstructionsNo instructions recorded. Reason for Referral None Reported. Results Created Date Observation Date Name Description Value Unit Range Abnormal Flag Note LastModifiedBy Organization Detail LastModifiedTime 08/13/19 22 08/13/2021 CULTU RE: GROUP B STREP SCREE N, REFLE X SUSCE PTIBI LITY result report SEE RESULT S BELOW Test: Cultu re: Group B Strep , Refle x Susce ptibi lity ([facility]/ [facility] ) Speci men Sourc e: Vagin a/Rec betsy Speci men Type: Vagin al/Re ctal Speci men Date: 3:16 PM Resul t Date: 022 4:15 PM Resul t Statu s: Final resul t Abnor mal: No Resul ting Lab: [facility] [address] [facility] [address] Tel: CULTU RE ----- ----- ----- --- No Group B strep isola mihir at 2 days (yancy ctive broth enhan cemen t) Not Available [facility] (Lab) [address] [facility], [place], [address], 08/16/2021 17:17:29 07/25/20 21 07/25/2021 US, elmira braswell follo w-up No observ ation record ed. [email or web address] [facility] [address], [place], [address], 07/25/2021 16:53:58 07/25/20 21 07/25/2021 US, obste tric follo w-up No observ ation record ed. [email or web address] [facility] [address], [place], [address], 07/28/2021 10:52:07 07/29/20 21 07/29/2021 US, obste tric, bioph ysica l profi le No observ ation record ed. [email or web address] [facility] [address], [place], [address], 07/29/2021 11:28:11 07/29/2007/29/2021 US, obste tric, bioph ysica l profi le No observ ation record ed. JANY [facility] [address], [place], [address], 08/04/2021 19:44:45 Result Notes None recorded. Problems Name Problem SNOMED Code Status Onset Date Resolution Date Notes Provider Name and Address Organization Details Recorded Time Pregnanc y 50129522 Completed 202009/09/2021 Damaris Bohnenstie hl null, [facility] 2 13:27:01 Depressi ve disorder 01906780 Completed bipolar - d/cj meds abilify & Lexapro Damaris Bohnenstie hl null, [facility] 2 13:26:56 RhD negative 302281754 Completed 202009/19/2021 Mariel Black null, [facility] 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 2 13:26:56 Blood group O Rh(D) negative 876119794 Completed pt given 28wk labs for rhogam Damaris Bohnenstie hl null, [facility] 2 13:26:56 Depressi ve disorder 27250173 Active bipolar - d/cj meds abilify & Lexapro Damaris Bohnenstie hl null, [facility] 2 13:26:56 Problem Notes None recorded. Procedures Surgical History None recorded. Imaging Results Imaging Date Name Status [facility]Modified by [facility] Details LastModified Time 07/25/2021 US, obstetric, follow-up completed [address], [place], [address], 07/25/2021 16:53:58 07/25/2021 US, obstetric, follow-up completed [email or web address] [facility] [address], [place], [address], 07/28/2021 10:52:07 07/29/2021 US, obstetric, biophysical profile completed [address], [place], [address], 07/29/2021 11:28:11 07/29/2021 US, obstetric, biophysical profile completed JANY [facility], [place], [address], 08/04/2021 19:44:45 Procedure Notes None recorded. Medical Equipment None Reported. Allergies No known drug allergies Medications Name Sig Start Date Stop Date Status Note LastModified by Organization Details LastModified Time cyclobenzap rine 10 mg tablet TAKE 1 TABLET BY MOUTH THREE TIMES DAILY NEEDED FOR MUSCLE SPASM 03/13 completed Not Available Not Available Not Available buspirone 5 mg tablet TAKE 1 TABLET BY MOUTH AT BEDTIME 03/07 completed Not Available Not Available Not Available prazosin 1 mg capsule TAKE 1 CAPSULE BY MOUTH AT BEDTIME active Not Available Not Available No t Available promethazin e 25 mg rectal suppository Insert 1 supposito ry every 6 hours by rectal route as needed. 01/17 completed Not Available Not Available Not Available promethazin e 12.5 mg tablet TAKE 1 TABLET BY MOUTH EVERY 6 HOURS NEEDED FORNAUSEA AND VOMITING. 3 DOSES DURING THE DAY AND LAST DOSE NO LATER THAN 4 HOURS BEFORE BED 03/07 completed Not Available Not Available Not Available ondansetron 8 mg disintegrat ing tablet DISSOLVE 1 TABLET ON THE TONGUE TWICE DAILY 06/17 completed Not Available Not Available Not Available meloxicam 7.5 mg tablet TK 1 T PO QD PRN P 03/07 completed Not Available Not Available Not Available amoxicillin 875 mg tablet TAKE 1 TABLET BY MOUTH EVERY 12 HOURS FOR 10 DAYS 03/13 completed Not Available Not Available Not Available metoclopram dragan 5 mg tablet TAKE 1 TABLET BY MOUTH FOUR TIMES DAILY 06/17 completed Not Available Not Available Not Available polymyxin B sulfate 10,000 unit-trimet hoprim 1 mg/mL eye drops INSTILL 1 DROP IN RIGHT EYE EVERY 3 HOURS WHILE AWAKE FOR 7 DAYS. DO NOT EXCEED 6 DOSES IN 24 HOURS 03/13 completed Not Available Not Available Not Available fluoxetine 10 mg capsule TAKE 1 CAPSULE BY MOUTH EVERY DAY 03/13 completed Not Available Not Available Not Available ibuprofen 600 mg tablet TAKE 1 TABLET BY MOUTH THREE TIMES DAILY NEEDED FOR PAIN 03/13 completed Not Available Not Available Not Available ondansetron 4 mg disintegrat ing tablet Place 1 tablet every 6 hours by transling ual route for 30 days. 03/13 completed Not Available Not Available Not Available fluoxetine 20 mg capsule TAKE 1 CAPSULE BY MOUTH DAILY active Not Available Not Available No t Available sertraline 50 mg tablet TAKE 1 TABLET BY MOUTH EVERY EVENING 03/13 completed Not Available Not Available Not Available metoclopram dragan 10 mg tablet TAKE 1 TABLET BY MOUTH EVERY 6 HOURS NEEDED FORNAUSEA AND VOMITING. ALTERNATE WITH ZOFRAN 06/17 completed Not Available Not Available Not Available escitalopra m 10 mg tablet TK 1 T PO QD 03/07 completed Not Available Not Available Not Available escitalopra m 5 mg tablet TAKE 1 TABLET BY MOUTH EVERY DAY 03/07 completed Not Available Not Available Not Available nitrofurant oin monohydrate /macrocryst als 100 mg capsule TK 1 C PO Q 12 H WF 02/26 completed Not Available Not Available Not Available 03/13 completed Not Available Not Available Not Available Lexapro 03/07 completed Not Available Not Available Not Available Abilify 03/07 completed Not Available Not Available Not Available aripiprazol e 2 mg tablet TAKE 1 TABLET BY MOUTH EVERY MORNING 03/07 completed Not Available Not Available Not Available Slynd 4 mg (28) tablet Take 1 tablet every day by oral route. active Not Available Not Available No t Available ID NOW COVID-19 Test Kit TEST DIRECTED TODAY 03/13 completed Not Available Not Available Not Available Vitals Date Recorded Body height Body mass index (BMI) Percentile per age and sex Body mass index (BMI) Body weight Systolic blood pressure Diastolic blood pressure Provider Name and Address Organization Details Last Updated DateTime 1 154.94 cm 70 % 23.4 kg/m2 59640.4 5388 g 104 mm[Hg] 69 mm[Hg] [facility] 1 10:33:16 Date Recorded Body height Body mass index (BMI) Percentile per age and sex Body mass index (BMI) Body weight Systolic blood pressure Diastolic blood pressure Provider Name and Address Organization Details Last Updated DateTime 2 154.94 cm 75 % 24.2 kg/m2 32688.8 2336 g 138 mm[Hg] 88 mm[Hg] [facility] 2 14:18:35 Date Recorded Body height Body mass index (BMI) Percentile per age and sex Body mass index (BMI) Body weight Systolic blood pressure Diastolic blood pressure Provider Name and Address Organization Details Last Updated DateTime 2 154.94 cm 32 % 20.2 kg/m2 02066.3 8 g 124 mm[Hg] 80 mm[Hg] Mariel Black [facility] 2 16:49:24 Date Recorded Body height Body mass index (BMI) Body mass index (BMI) Percentile per age and sex Body weight Systolic blood pressure Diastolic blood pressure Provider Name and Address Organization Details Last Updated DateTime 2 154.94 cm 17.6 kg/m2 4 % 11510.0 9 g 106 mm[Hg] 71 mm[Hg] Mariel Black [facility] 2 10:27:57 Social History Question Answer Notes LastModified by Organizat ion Details LastModified Time Tobacco Smoking Status Never Smoker Mariel macdonald [facility] 03/13/2022 10:28:25 Do You Have An Advance Directive? No [email or web address] Information n ot available 02/26/2021 What Is Your Level Of Alcohol Consumption? None Information not available 01/17/2021 Are You Blind Or Do You Have Difficulty Seeing? No [email or web address] Information n ot available 02/26/2021 What Is Your Level Of Caffeine Consumption? Occasional [email or web address] Information not available 02/26/2021 How Much Tobacco Do You Chew? None [email or web address] Information not available 02/26/2021 In The 14 Days Before Symptom Onset, Have You Had Close Contact With A Laboratory-confirm ed COVID-19 While That Case Was Ill? No [email or web address] Information n ot available 02/26/2021 In The 14 Days Before Symptom Onset, Have You Had Close Contact With A Person Who Is Under Investigation For COVID-19 While That Person Was Ill? No [email or web address] Information not available 02/26/2021 Have You Been To An Area Known To Be High Risk For COVID-19? No Information not available 02/26/2021 Are You Deaf Or Do You Have Serious Difficulty Hearing? No [email or web address] Information not available 02/26/2021 What Type Of Diet Are You Following? REGULAR [email or web address] Information n ot available 02/26/2021 What Is The Highest Grade Or Level Of School You Have Completed Or The Highest Degree You Have Received? [id number] [email or web address] Information not available 02/26/2021 What Is Your Occupation? N/A [email or web address] Information not available 03/13/2022 Are There Any Guns Present In Your Home? No [email or web address] Information not available 02/26/2021 Do You Use Protection During Sex? Always [email or web address] Information not available 03/13/2022 Do You Use Your Seat Belt Or Car Seat Routinely? Yes [email or web address] Information not available 02/26/2021 Do You Have Smoke And Carbon Monoxide Detectors In Your Home? Yes Information not available 02/26/2021 How Much Tobacco Do You Smoke? No [email or web address] Information not available 02/26/2021 Do You Feel Stressed (tense, Restless, Nervous, Or Anxious, Or Unable To Sleep At Night)? [id number] [email or web address] Information not available 02/26/2021 Do You Use Any Illicit Or Recreational Drugs? No Information not available 01/17/2021 Do You Use Sunscreen Routinely? No [email or web address] Information not available 02/26/2021 Has Tobacco Cessation Counseling Been Provided? No [email or web address] Information not available 03/13/2022 Have You Used IV Drugs? No [email or web address] Information not available 02/26/2021 Do You Or Have You Ever Used Any Other Forms Of Tobacco Or Nicotine? No [email or web address] Information not available 03/13/2022 Sex: Unknown Functional Status Question Answer Note LastModified by Organizat ion Details LastModified Time Do you have difficulty walking or climbing stairs? No [email or web address] Information not available 03/13/2022 Are you able to walk? [email or web address] Information not available 02/26/2021 Are you able to care for yourself? Yes [email or web address] Information not available 03/13/2022 Do you have difficulty dressing or bathing? No [email or web address] Information not available 03/13/2022 What is your exercise level? Moderate [email or web address] Information not available 03/13/2022 Mental Status None recorded. Family History Relationship Description Onset Age of this Age Resolved Age Notes LastModified by Organization Details LastModified Time Father No current problems or disability Not available 02/03 14:29:02 Mother No current problems or disability [email or web address] Not available 02/03 14:29:02 Medical History Condition Response Allergies (Food, seasonal, environmental ) N Other N Drug/Latex Allergies/Reactions N Blood Transfusion N Breast Cancer N Dermatologic Disorders N Lung Disease N Defects or Inherited Disease N Breast Problem N Gestational Diabetes N Hematologic disorders N Anesthesia Complications N History of STI N Deep Vein Thrombosis N Polycystic ovary syndrome N Anxiety Disorder Y Autoimmune disease N Arthritis N Polyps N Infertility N Acid Reflux (GERD) N History of abnormal pap N Cancer N Varicosities N Stroke N Neurologic/Epilepsy Y Endometriosis N High Cholesterol N Fibromyalgia N Headaches N Kidney Disease N Heart Problems N Thyroid Problems N Kidney or Bladder Problems N GI Problems N Eating Disorder N Anemia N Art (IVF or FET) N Psychiatric Illness Y Ovarian Cancer N Diabetes N Pulmonary (TB, Asthma) N Hepatitis/Liver Disease N No Past Medical History N Eczema N Urinary Tract Infection N Abuse/Domestic Violence N Asthma N Trauma/Violence N Depression/ depression Y Heart Disease N Pre-Eclampsia N Hypertension N Osteoporosis N Thrombophilias N Gynecological History Statement/Question Response Date of Last Mammogram Date of LMP 02/24/2022 On BCP's at Conception? N N Was last menstrual period normal N STIs/STDs N HPV Vaccine N Duration of Flow (days) 7 Current Control Method None Age at First Child 20 Date of control 09/19/2021 Frequency of Cycle (Q days) 29 Most Recent Bone Density Sexually Active? Y Other Age of first menstrual cycle 13 Date of Last Pap Smear Sexual Problems? N Desired Control Method Unknown LMP Approximate N Obstetrics History GPAL:G 1 P 0 1 0 1 Type Value Premature 1 Living 1 Total 1 Past Encounters Encounter ID Performer Location Encounter Start Date Encounter Closed Date Diagnosis/Indication Diagnosis SNOMED-CT Code Diagnosis ICD10 Code Diagnosis Note [id number] Serenity Meraz MD [facility] [address] [address] 01/17/2021 15:23:54 01/17/2021 16:54:43 Nausea and vomiting 08309396 R11.2 Moderate h yperemesis gravidarum 734136613 O21.0 Bipolar disorder 4331958 4 F31.9 Ketonuria 464673677 R82. 4 [id number] April Correa [facility] [address] [address] 02/04/2021 15:48:17 02/04/2021 18:06:56 test positive 913006841 Z32.01 Risk factors addressed: Tobacco Cessation, Safe Sexual Practices, environmen addy, work hazards, travel restrictio ns, seat belt use.Eat a health well balanced diet, avoid alcohol, tobacco, and street drugs.Enga ge in daily low impact exercise, avoid temperatur e extremes, and cat, rodent, and bird feces.Avoi d travel to areas where zika virus is a concern.Of fered cf/sma/nip sylvia whitfield all 3. Handouts given and discussed with patient.Ch ildbirth classes recommende d.New OB sheet given.If previous , counseling .Pt verbalizes that she understand s the importance of above instructio ns.All questions were answered.P atient reminded to have annual well woman examinatio n and address [facility] . [id number] [facility] [address],[place] [address] 02/04/2021 15:47:26 02/04/2021 17:27:01 [id number] [facility] [address],[place] [address] 02/26/2021 12:24:32 02/26/2021 13:06:01 screening 410316989 Z36.82 [id number] Alex Macias MD [facility] [address],[place] [address] 03/07/2021 11:51:33 03/07/2021 13:09:18 Routine care 874930507 Z34.90 [id number] [facility] [address],[place] [address] 04/01/2021 11:35:52 04/01/2021 15:16:09 Routine care 972286593 Z34.91 [id number] [facility] [address],[place] [address] 04/30/2021 09:42:53 04/30/2021 10:15:49 Routine care 010623751 Z34.91 [id number] Conchitasmiley Leason [facility] [address],[place] [address] 05/08/2021 16:25:03 05/08/2021 19:37:47 screening 187639846 Z36.3 [id number] Serenity Meraz MD [facility] [address],[place] [address] 05/20/2021 17:05:48 05/20/2021 17:36:42 RhD negative 662841711 Z01.83 Routine an tenatal care 695912352 Z34.02 [id number] Serenity Meraz MD [facility] [address],[place] [address] 06/17/2021 11:08:23 06/17/2021 11:44:45 Routine care 361505738 Z34.02 [id number] Serenity Meraz MD [facility] [address],[place] [address] 07/01/2021 11:10:52 07/07/2021 18:17:44 [id number] MD Wendy [place] [address],[place] [address] 07/15/2021 10:26:05 07/15/2021 11:34:37 Depressive disorder 77355257 F32.A Routine an tenatal care 382063392 Z34.02 [id number] Alex Macias MD [facility] [address],[place] [address] 07/25/2021 12:30:03 07/25/2021 13:30:13 Bleeding from female genital tract during 0381108601 7497047 O46.93 [id number] [facility] [address] [address] 07/25/2021 13:44:24 07/25/2021 14:12:57 Bleeding from female genital tract during 8883802302 8315723 O46.93 Z3A.33 [id number] Conchita [facility] [address],[place] [address] 07/29/2021 09:57:24 07/29/2021 10:30:49 Polyhydramnios 90522718 O40.3XX0 Z3A.33 [id number] Serenity Meraz MD [facility] [address],[place] [address] 07/29/2021 09:58:03 07/29/2021 11:07:01 Routine care 345998767 Z34.02 Depressive disorder 3548 9007 F32.A [id number] Serenity Meraz MD [facility] [address],[place] [address] 08/13/2021 14:14:10 08/13/2021 14:42:45 Depressive disorder 67644378 F32.A Routine an tenatal care 769879056 Z34.02 [id number] Cadencetracey Garsia CNM [facility] [address] [address] 09/19/2021 16:39:27 09/22/2021 16:51:20 care 374525631 Z39.2 Mixed anxi ety and depressive disorder 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 F41.8 Nausea and vomiting 1693 1999 R11.2 [id number] Cadence Garsia CNM [facility] [address] [address] 03/13/2022 10:14:25 03/13/2022 10:58:30 Contraception care management 450473149 Z30.9 Anxiety 39963308 F41.9 see pcp to restart abilify, return to [facility] for counseling , to ED if suicidal thoughts Health Concerns Section Related Observation LastModified by Organization Detai ls LastModified Time None Recorded Concern Status LastModified by Organization Details LastModified Time None Recorded Advance Directives Directive N: Payers Encounter Date Sequence Insurance Name Policy Number Policy Oconnell Covered Member ID Oconnell Member ID Guarantor Name 07/29/2021 1 [employer] [id number] [facility] [id number] Chante Wynne 07/29/2021 1 [employer] [id number] [facility] [id number] Chante Wynne 08/13/2021 1 [employer] [id number] [facility] [id number] Chante Wynne 09/19/2021 1 [place] [facility] Chante Wynne [id number] Chante Wynne 03/13/2022 1 [facility] - DOS ON OR AFTER 21 (MEDICAID REPLACEMENT - HMO) Chante Wynne [id number] Chante Wynne Notes Date Note Type Note Provider Name and Address Organization Details Recorded Time 09/19/2021 text/html VisitReported bypatient.Quality:N Context:complicatio ns of : none; complications of labor: none; complications: none; depression; good support from partner/family Associated Symptoms:no abnormal bleeding; no vaginal discharge; no pelvic pain; laceration well healed; no constipation; no fecal incontinence; no dysuriaNotes:wants bcm, anxiety increasing, no suicidal thoughts [address] [place], [address], [place] [facility] 09/24/2021 09:01:04 03/13/2022 text/html rf on bcm, happy with slynd.anxiety increasing, prozac makes her too tired, was on abilify prior to and it worked well, also has seen [facility] for counseling in the past no suicidal thoughts, situational mostly right now Cadence Garsia, [facility] [address], [place], [address], [facility] 03/13/2022 10:50:18 OBGyn Episode Ob Episode Information Episode Created Date Number of Fetuses Patient Bloodtype Patient rh Status Prepregnancy Weight lbs Domestic Partner Domestic Partner Phone Father Name Mandrel Puller Status 03/07/20 21 1 O Negative 93 CLOSED Fetus Data First Name Last Name Admitted to NICU Weight (g) Sex Living Outcome Pediatric Complications Fetus ID Race Codes Race Delivery Type Emberl y 2834.95 F true Prematur e Cord around body, terminal meconium 74180 Vaginal Delivery Problems Problem Notes Meraz ptDeclines COVID vacc ine Problem Name Start Date End Date Resolution Snomed Code Not e Cystic fibrosis 754887734 irby ier - FOB negative Depressive disorder 68473605 bipolar - d/cj meds abilify & Lexapro Blood group O Rh(D) negative 058968938 pt given 28wk l abs for rhogam Max Calculation Initial Max Date Initial Exam Date Initial Exam Provider Initial Ultrasound Date Last Menstrual Period Date Ultra Sound Weeks Gestation 09/10/2021 03/07/2021 02/04/2021 12/04/2020 9 Eighteen To Twenty Week Max Update Ultra Sound Date Fundal Height At Umbil Quickening Date Ultra Sound Latest Weeks Gestation Final Max Confirmed By Final Max Confirmed Date Final Max Date Ultra Sound Latest Days Gestation 0 [email or web address] 03/07/2021 09/10/19 22 0 Pre-edward Flowsheet Flowsheet Date 03/07/2021 Shah Score Blood Edema Fundus Height Fundus Units Glucose Ketones Leukocytes Nitrite Labor Signs Protein Cervic Dilation Cervic Effacement Cervic Station 13 Type Weight in lbs Pre/Post Dialysis Refused Weight 91.6329950609527 BP Diastolic BP Location Tested BP Systolic BP Type 89 R arm 138 sitting 92 L arm 135 sitting Fetus Heart Rate Present A 145 Fetus Movement Comments This patient is a 20-year-ol d 1 at 13 weeks gestation who presents for initial care. She has severe nausea vomiting of . Prescribe Zofran and Reglan. She was given some recommendations on nutritional support. We discussed care in detail. She is getting genetic testing and regular labs. She has history of depression and was on Abilify and Lexapro. She discontinue those at the onset of the . She will begin routine care. Flowsheet Date 04/01/2021 Shah Score Blood Edema Fundus Height Fundus Units Glucose Ketones Leukocytes Nitrite Labor Signs Protein Cervic Dilation Cervic Effacement Cervic Station none trace Type Weight in lbs Pre/Post Dialysis Refused Weight 102.310600863785 BP Diastolic BP Location Tested BP Systolic BP Type 82 125 Fetus Heart Rate Present A 155 Fetus Movement A No Comments Doing well. Does not want AF P today but will do at her next visit. FOB will have CF drawn today. Flowsheet Date 04/30/2021 Shah Score Blood Edema Fundus Height Fundus Units Glucose Ketones Leukocytes Nitrite Labor Signs Protein Cervic Dilation Cervic Effacement Cervic Station none 20 trace Type Weight in lbs Pre/Post Dialysis Refused Weight 110.945079647214 BP Diastolic BP Location Tested BP Systolic BP Type 79 119 Fetus Heart Rate Present A 147 Fetus Movement A Yes Comments Doing well. Wants to do her afp next week when she is here for baseline anatomy. Questions answered about delivery options and hospital visitor policy. Encouraged flu and covid vaccines. Discussed acog recommendation. Flowsheet Date 05/08/2021 Shah Score Blood Edema Fundus Height Fundus Units Glucose Ketones Leukocytes Nitrite Labor Signs Protein Cervic Dilation Cervic Effacement Cervic Station Type Weight in lbs Pre/Post Dialysis Refused BP Diastolic BP Location Tested BP Systolic BP Type Fetus Heart Rate Present Fetus Movement Comments Flowsheet Date 05/20/2021 Shah Score Blood Edema Fundus Height Fundus Units Glucose Ketones Leukocytes Nitrite Labor Signs Protein Cervic Dilation Cervic Effacement Cervic Station neg trace 24 trace Type Weight in lbs Pre/Post Dialysis Refused Weight 113.857082407964 BP Diastolic BP Location Tested BP Systolic BP Type 72 112 Fetus Heart Rate Present A 160 Fetus Movement A Yes Comments Doing ok. N/V still present in ams, but better. Trouble sleeping, discussed comfort measures. Mood is mostly ok but she is worried about pp depression and wants to start meds at delivery. DIscussed and encouraged flu and COVID vaccines. RH neg- order given for Rhogam and 28w labs at [place]. 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 Discussed support belt, massage, heat, tylenol. Doing Rhogam and GCT at this week. Encouraged flu, Tdap, COVID vaccines. Flowsheet Date 07/01/2021 Shah Score Blood Edema Fundus Height Fundus Units Glucose Ketones Leukocytes Nitrite Labor Signs Protein Cervic Dilation Cervic Effacement Cervic Station trace trace 29 trace Type Weight in lbs Pre/Post Dialysis Refused Weight 125.027173026569 BP Diastolic BP Location Tested BP Systolic BP Type 81 126 Fetus Heart Rate Present A 130 Fetus Movement A Yes Comments Doing well. Will do flu and Tdap, nervous about COVId, discussed and encouraged vaccination. Back pain getting worse- discussed comfort measures. Rhogam done, GCT wnl. Flowsheet Date 07/15/2021 Shah Score Blood Edema Fundus Height Fundus Units Glucose Ketones Leukocytes Nitrite Labor Signs Protein Cervic Dilation Cervic Effacement Cervic Station neg trace 30 none trace Type Weight in lbs Pre/Post Dialysis Refused Weight 125.738147189519 BP Diastolic BP Location Tested BP Systolic BP Type 84 129 Fetus Heart Rate Present A 150 Fetus Movement A Yes Comments Doing pretty well. Flu and T dap this week. Decided not to get COVID vaccine, she is aware of risks. Mood is everywhere. Seems to get very angry and irritable at night, would like to start something now. zoloft sent, precautions given. Flowsheet Date 07/25/2021 Shah Score Blood Edema Fundus Height Fundus Units Glucose Ketones Leukocytes Nitrite Labor Signs Protein Cervic Dilation Cervic Effacement Cervic Station 36 Type Weight in lbs Pre/Post Dialysis Refused Weight 121.554941941257 BP Diastolic BP Location Tested BP Systolic BP Type 75 R arm 113 sitting Fetus Heart Rate Present A 144 Fetus Movement Comments this patient is here for an episode of bleeding that occurred this week. She had some bright red light bleeding. Moves a small amount. There was some associated cramping. It was followed by brown discharge. She reports good movement and denies any contractions. The infant measures large for gestational age. To obtain ultrasound for growth and placental integrity. Flowsheet Date 07/25/2021 Shah Score Blood Edema Fundus Height Fundus Units Glucose Ketones Leukocytes Nitrite Labor Signs Protein Cervic Dilation Cervic Effacement Cervic Station Type Weight in lbs Pre/Post Dialysis Refused BP Diastolic BP Location Tested BP Systolic BP Type Fetus Heart Rate Present Fetus Movement Comments Flowsheet Date 07/29/2021 Shah Score Blood Edema Fundus Height Fundus Units Glucose Ketones Leukocytes Nitrite Labor Signs Protein Cervic Dilation Cervic Effacement Cervic Station Type Weight in lbs Pre/Post Dialysis Refused BP Diastolic BP Location Tested BP Systolic BP Type Fetus Heart Rate Present Fetus Movement Comments Flowsheet Date 07/29/2021 Shah Score Blood Edema Fundus Height Fundus Units Glucose Ketones Leukocytes Nitrite Labor Signs Protein Cervic Dilation Cervic Effacement Cervic Station neg trace none trace Type Weight in lbs Pre/Post Dialysis Refused Weight 124.405166262144 BP Diastolic BP Location Tested BP Systolic BP Type 69 104 Fetus Heart Rate Present A 145 Fetus Movement A Yes Comments Doing well. No further bleed ing. FELIBERTO improved today 17 from 22, BPP 8/8. Decided not to start zoloft, worried about baby withdrawing, will start in hospital after delivery. mood is not great, EPDS 16. Terrified of labor and delivery, discussed details, support given. GBS next visit. Flowsheet Date 08/13/2021 Shah Score Blood Edema Fundus Height Fundus Units Glucose Ketones Leukocytes Nitrite Labor Signs Protein Cervic Dilation Cervic Effacement Cervic Station none 36 0cm 50% -2 Type Weight in lbs Pre/Post Dialysis Refused Weight 128.406101080091 BP Diastolic BP Location Tested BP Systolic BP Type 88 138 Fetus Heart Rate Present A 155 Fetus Movement A Yes Comments Doing well, just very nervou s about delivery. EPDS 14, denies SI/HI, will start zoloft in hospital after delivery and will schedule appt with her psychiatrist for one month after due date. GBS done and discussed. Labor precautions. Needs oncology rep. Menstrual History Last Menstrual Date Menses Monthly On Bcp Conception Prior Menses Frequency Hcg Plus Date Menarche Onset Age 0412/04/2020 Genetic Screening And Infection History Question Response Note Mental Retardation/Autism false Patient's Age Will Be 35 Years Or Older At Estim ated Date of Delivery false Thalassemia (Icelandic, Bolivian, Mediterranean, Or Background): MCV < 80 false Neural Tube Defect (Meningomyelocele, Spina Bifi da, Or Anencephaly) false Congenital Heart Defect false Down Syndrome false Torey-Sachs (eg, Episcopalian, Cajun, Korean-Guthrie) f alse Jason Disease false Sickle Cell Disease Or Trait () false Hemophilia Or Other Blood Disorders false Muscular Dystrophy false Cystic Fibrosis false [place] false Intellectual Disability/Autism false If Yes, Was Person Tested For Fragile X? false Other Inherited Genetic Or Chromosomal Disorder false Maternal Metabolic Disorder (eg, Type 1 Diabetes , PKU) false Patient Or Baby's Father Had A Child With Defects Not Listed Above false Recurrent Loss, Or A Stillbirth false Medications (including Suppl ements, Vitamins, Herbs, OTC Drugs), Illicit/Recreational Drugs, Alcohol false If Yes, Agent(s) And Strength/Dosage false Any Other Genetic History false Live With Someone With TB Or Exposed To TB false Patient Or Partner Has History Of Genital Herpes false Rash Or Viral Illness Since Last Menstrual Perio d false History Of STD, Gonorrhea, Chlamydia, HPV, Syphi lis false Other Infection History false History of HIV false History of Hepatitis false Prior GBS-infected child false Hemoglobinopathy Or Carrier false Other Structural Defect false Recent Travel History Outside of Country false Delivery Information Delivery Date Delivery Type Labor Anesthesia Weeks Gestation Incision Type Labor Labor Length Hrs Delivered By Post Complications Tubal Sterilization Discharge Date Comments [facility]hir [facility] idural 36.4 true Cadence Garsia ROCIO Cystic Fibrosis & SROM Gbs unknown Discharge Information Feeding Method Contraceptive Method Maternal HG B and HCT Levels
--- OUTSIDE RECORDS SUMMARY | 2024-10-26 12:46 | XMS_ITS | Continuity of Care Document ---
Author Organization [facility] Address [address] [place] [address] [place] [address] Phone Care Team Providers Care Inverted Block Operator Name Role Phone Maury Lund MD Unavailable [...] on Encounter PREV VISIT, EST, AGE 18-39 [facility], [address], [place], [place], [address], [place] tel:[phone] [facility] Medicine physical (chief complaint) Encounter for general adult medical examination without abnormal findings 1 Kevon Mendiola. [address], [place], [place], [address] , [place]. tel:[phone] [facility], [address], [place], [place], [address], [place] tel:[phone] [facility] No Information Jul- 0 Kevon Mendiola. [address], [place], [place], [address] , [place]. tel:[phone] OFFICE/OUTPA TIENT VISIT, [facility], [place], [facility], [address], [place], [place], [address], [place] tel:[phone] [facility] UTi1 (chief complaint) anxiety1 (chief complaint) Urinary tract infectionGeneralize d Anxiety Disorder Jun- 0 Kevon Mendiola. [address], [place], [place], [address] , [place]. tel:[phone] OFFICE/OUTPA TIENT VISIT, [facility], [place], [address], [place], [place], [address], [place] tel:[phone] [facility] back pain1 (chief complaint) Abdominal painMuscle spasm of back Apr-2 0 Kevon Mendiola. [address], [place], [place], [address] , [place]. tel:[phone] OFFICE/OUTPA TIENT VISIT, [facility], [place], [facility], [address], [place], [place], [address], [place] tel:[phone] [facility] anxiety1 (chief complaint) immunizati on1 (chief complaint) Generalized Anxiety DisorderEncounter for immunization Apr- 0 Kevon Mendiola. [address], [place], [place], [address] , [place]. tel:[phone] OFFICE/OUTPA TIENT VISIT, [facility], [place], [address], [place], [place], [address], [place] tel:[phone] [facility] bili1 (chief complaint) hemoglobin 1 (chief complaint) hematuria1 (chief complaint) anxiety1 (chief complaint) Generalized Anxiety DisorderHematuriaDi sorder of bilirubin metabolism, unspecifiedSecondar y polycythemia 0 Kevon Contreras [address], [place], [place], [address] , [place]. tel:[phone] PREV VISIT, EST, AGE 12-17 [facility], [address], [place], [place], [address], [place] tel:[phone] [facility] Physical (chief complaint) Encntr for routine child health exam w/o abnormal findings 0 Kevon Mendiola. [address], [place], [place], [address] , [place]. tel:[phone] Referring Provider: Silva [address], [place], [place], [address]. tel:[phone] OFFICE/OUTPA TIENT VISIT, [facility] [place], [address], [place], [place], [address], [place] tel:[phone] [facility] anxiety1 (chief complaint) urinary symptoms1 (chief complaint) Urinary frequencyGeneralize d Anxiety Disorder 9 Kevon Mendiola. [address], [place], [place], [address] , [place]. tel:[phone] Referring Provider: Silva [address], [place], [place], [address]. tel:[phone] OFFICE/OUTPA TIENT VISIT, [facility] [place], [address], [place], [place], [address], [place] tel:[phone] [facility] urinary urgency1 (chief complaint) anxiety1 (chief complaint) Urinary frequencyDepression Leukorrhea 2-201 9 Kevon Mendiola. [address], [place], [place], [address] , [place]. [phone] Referring Provider: Silva [address], [place], [place], [address]. tel:[phone] OFFICE/OUTPA TIENT VISIT, EST [facility], [address], [place], [place], [address], [place] tel:[phone] [facility] pyelonephr itis1 (chief complaint) anxiety1 (chief complaint) PyelonephritisGener alized Anxiety Disorder 9 Kevon Mendiola. [address], [place], [place], [address] , [place]. [phone] Referring Provider: Silva [address], [place], [place], [address]. tel:[phone] PREV VISIT, EST, AGE 12-17 [facility], [address], [place], [place], [address], [place] tel:[phone] [facility] PHysical (chief complaint) Encntr for routine child health exam w/o abnormal findings 8 Kevon Mendiola. [address], [place], [place], [address] , [place]. [phone] Referring Provider: Silva [address], [place], [place], [address]. tel:[phone] PREV VISIT, EST, AGE 12-17 [facility], [address], [place], [place], [address], [place] tel:[phone] [facility] Physical (chief complaint) Encntr for routine child health exam w/o abnormal findings 7 Kevon Mendiola. [address], [place], [place], [address] , [place]. [phone] Referring Provider: Silva [address], [place], [place], [address]. tel:[phone] PREV VISIT, EST, AGE 12-17 [facility], [address], [place], [place], [address], [place] tel:[phone] [facility] PHysical (chief complaint) Encntr for routine child health exam w/o abnormal findings 6 Kevon Mendiola. [address], [place], [place], [address] , [place]. tel:[phone] Referring Provider: Maury Lund, [address], [place], [place], [address]. tel:[phone] PREV VISIT, EST, AGE 12-17 [facility], [address], [place], [place], [address], [place] tel:[phone] [facility] Medicine PHysical (chief complaint) Routine medical exam 5 Kevon Mendiola. [address], [place], [place], [address] , [place]. tel:[phone] Referring Provider: Maury Lund [address], [place], [place], [address]. tel:[phone] PREV VISIT, NEW, AGE 5-11 [facility], [address], [place], [place], [address], [place] tel:[phone] [facility] Physical (chief complaint) Routine Medical ExamRoutine Medical Exam 4 Kevon Mendiola. [address], [place], [place], [address] , [place]. tel:[phone] Referring Provider: Silva [address], [place], [place], [address]. tel:[phone] Family History Family Member Type Diagnosis Age At Onset Father Problem (finding) Alive and well Sister Problem (finding) Alive and well Mother Problem (finding) Alive and well Payers Payer name Insurance type Covered libertarian ID Authoriza tion(s) No Information Social History [...] overall feels well. Pt denies any complaints UTi1 Pt states that s he has mild dysuria, urinary urgency and frequency last week, which resolved completely now. PT denies any urinary symptoms .Pt denies any flank pain. Pt started her period yesterday and she feels that her urinary symptoms completely resolved since two days ago .Pt denies any fever, chill anxiety1 Pt has mild anxi ety and depression Pt doing well with lexapro Pt denies any suicidal or homicidal thought. Pt denies any crying spells back pain1 Pt c/o acute ons et [...] in the morning when she gets up. anxiety1 Pt has chronic a nxiety and depression, Pt takes lexapro and doing ok Pt denies any suicidal or homicidal thought. Pt denies any crying spells immunization1 her mom received a letter from school regarding missing vaccine and she was given a deadline to get the vaccine done. Mom is not sure what type of vaccine she needs. bili1 Pt has mildly hi gh bili Pt denies any jaundice or abdominal pain. Pt has not done lab yet hemoglobin1 Pt has slightly high hemoglobin pt has not done lab yet. pt denies any family history of hemachromatosis hematuria1 Pt denies any he maturia or any UTi symptoms or flank pain. anxiety1 Pt has chronic a nxiety and [...] else is controlling her mood with lexapro Physical Pt needs annual physical. Pt has [...] started to talk to her counselor at [facility] and she will see psychiatrist soon ,Pt [...] and depression. Pt is seeing counseling at [facility] and she also sees counseling at [facility] [...] states that she can tolerate people more. urinary urgency1 Pt has frequent urination urgency and urinary frequency for the past several weeks. Pt denies any flank pain Pt also has vague dysuria and she went to urgent care and she was treated for UTi with abx but her urine cx was actually negative. Pt drinks a lot of caffeine at work. Pt works at [employer] and she has to hold her urine a lot and then she has urgency and sometimes she cannot wait until bathroom before she pee on herself recently Pt denies any flank pain, fever. Pt denies any vaginal blisters. Pt denies any excessive vaginal discharge Pt has regular period. Pt denies any pelvic pain anxiety1 Pt feels anxious and slightly depressed [...] Pt denies any suicidal or homicidal thought pyelonephritis1 Pt had history o f acute pyelonephritis about 6 months ago. Pt did not do repeat UA. Pt denies any flank pain or any fever, chill, urinary symptoms or flank pain. anxiety1 Pt has been havi ng difficulty [...] self injury or suicidal or homicidal behavior PHysical Pt needs annual physical. pt c/o [...] Pt has regular period. 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 Pt feels depressed sometimes but no [...] Diet and exercise Related to Bandar lonephritis Increase physical activity Relat ed to Encntr for routine child health exam w/o abnormal findings Increase physical activity Relat ed to Encntr for routine child health exam w/o abnormal findings Diet and exercise Related to Enc ntr for routine child health exam w/o abnormal findings Increase physical activity Relat ed to Encntr for routine child health exam w/o abnormal findings Assessments Type Assessment Date assessment Encounter for genera l adult medical examination without abnormal findings Mental Status Date Cognitive Assessment Orientation - [place] ed to time, place, person, situation.
[2024-10-26 12:51] LABS: Alanine Aminotransferase 27 U/L (6-35); Albumin Level 5.1 g/dL (3.5-5.1); Alkaline Phosphatase 59 U/L (38-126); Anion Gap 19 mmol/L (4-12); Aspartate Amino Transferase 29 U/L (14-36); Bilirubin,Total 1.6 mg/dL (0.2-1.3); Blood Urea Nitrogen 11 mg/dL (7-17); Calcium 9.5 mg/dL (8.4-10.2); Carbon Dioxide 13 mmol/L (22-30); Chloride 104 mmol/L (98-107); Estimated CRCL calculation 106 ml/min; Estimated Glomerular Filt Rate > 60; Glucose 168 mg/dL (65-110); Lipase 31 U/L (23-300); Potassium 3.2 mmol/L (3.4-5.0); Sodium 136 mmol/L (137-145)
[2024-10-26] MEDS: FAMOTIDINE 20 MG/2 ML VIAL IV PUSH (13:03)
[2024-10-26] MEDS: METOCLOPRAMIDE HCL INJ 10 MG/2 ML VIAL IV PUSH (13:03)
[2024-10-26] MEDS: SODIUM CHLORIDE 0.9% IV 1,000 ML 999 ML IV CONT ×2 (13:03)
[2024-10-26] MEDS: diphenhydrAMINE HCl INJ 50 MG/ML VIAL 25 MG IV PUSH (13:04)
--- NOTE | 2024-10-26 13:18 | ED_ITS ---
HPI - Nausea/Vomiting/Diarrhea General Chief complaint: Nausea/Vomiting/Diarrhea Stated complaint: 9 weeks preg, hyperemesis Time Seen by Provider: 10/26/24 11:55 Source: patient Mode of arrival: ambulatory Limitations: no limitations History of Present Illness HPI Narrative: Patient is a 24-year-old female who presents the ED with report of nausea, vomiting. Patient reports having persistent nausea and vomiting since 4:00 a.m. this morning. States she is unable to keep down any food or drink. Feels very weak and dehydrated. Has history of cannabinoid induced hyperemesis as well as hyperemesis gravidarum. Patient is currently around 9 weeks gestation. She 3 P1, history of 1 miscarriage last year. Reports she has been smoking marijuana over the last few days which has improved her nausea. Sees Dr. Kev Marin. Reports intermittent abdominal cramping. Denies vaginal bleeding, diarrhea, constipation, fevers. Related Data Allergies Allergy/AdvReac Type Severity Reaction Status Date / Time No Known Allergies Allergy Unknown Verified 10/26/24 11:54 Review of Systems 2 Review of Systems: All systems reviewed & are unremarkable except as noted in HPI. All systems reviewed & are unremarkable except as noted in HPI and below PMFSH Past Medical History Medical History Suppression of menses Bipolar 1 disorder Self-mutilation Hyperemesis gravidarum Depression Anxiety Surgical History Surgical History No pertinent past surgical history Family History Family History Sibling Diabetes mellitus Grandparent Diabetes mellitus Grandparent Breast cancer Social History Social History Smoking status: Former smoker Tobacco type: e-cigarettes/vaping Alcohol intake: current Substance use: current Substance use type: marijuana Other substance usage details: daily Do You Feel Safe in your Home?: Yes Lack of Transportation: No Lack of Food: Never True Current Housing: I Have Housing Concerned About Future Housing: No Difficulty Paying Gas/Electric Bills: No Difficulty Paying for Meds: No Currently Unemployed: No Education: High School Diploma/GED Difficulty w/ Childcare or Family Care: No Living arrangements: with family Occupation/Education: occupation Gender identity (if verbalized by the patient): Female Sexual Orientation (if Verbalized by the Patient): Straight or Heterosexual Spiritual care concerns: No Exam 2 Narrative: GENERAL: Mildly ill appearing, thin, in mild acute distress. Actively dry heaving on exam. HEAD: Normocephalic, atraumatic. RESPIRATORY: Airway patent, respirations nonlabored. Clear to auscultation bilaterally, no rales, rhonchi, wheezing. CARDIOVASCULAR: Regular rate and rhythm without murmurs, rubs, or gallops. ABDOMINAL: Soft, mild diffuse tenderness, no significant focal tenderness, nondistended. Normoactive BS. MUSCULOSKELETAL: Moves all extremities. No gross deformities. SKIN: Warm, dry, normal color. NEURO: A&O X3. Speech clear. PSYCHIATRIC: Appropriate mood and affect. Normal interaction. Course Vital Signs Vital signs: Vital Signs Pulse Rate 70 10/26/24 11:55 Respiratory Rate 16 10/26/24 11:55 Blood Pressure 148/78 H 10/26/24 11:55 Pulse Oximetry 100 10/26/24 11:55 Oxygen Delivery Room Air 10/26/24 11:55 Temperature 97.5 F L 10/26/24 12:14 Pulse Rate 70 10/26/24 11:55 Respiratory Rate 16 10/26/24 11:55 Blood Pressure 148/78 H 10/26/24 11:55 Pulse Oximetry 100 10/26/24 11:55 Oxygen Delivery Room Air 10/26/24 11:55 MDM - Nausea/Vomiting/Diarrhea MDM Narrative Medical decision making narrative: Patient presented to ED with report of nausea, vomiting. History of cannabinoid induced hyperemesis, hyperemesis gravidarum. Currently 9 weeks gestation. Reporting daily marijuana use. Vitals are stable upon arrival. Patient mildly ill appearing. Cbc with white blood cell count of 17.7. Likely reactive. Fluids ongoing. CMP with potassium 3.2. IV replacement ordered. Bicarb 13. Anion gap of 19. Blood glucose 168. Stable kidney function. Normal LFTs and lipase. Bilirubin is mildly elevated to 1.6. Beta hCG > 375,000. UA with 4+ ketones, 11-20 WBC, 3+ urine bacteria. Sent for culture. Will treat given status. Urine drug screen is positive for cannabinoids. ultrasound was obtained and reassuring, 8 weeks 3 days with good heart tones. No other abnormalities noted at this time. Patient given 2 L of fluid, Benadryl, Reglan, Pepcid, KCl, magnesium. On re- evaluation, she is feeling improved. Able to tolerate p.o. intake. Repeat BMP showing significant improvement of laboratory studies. Feel she is safe for discharge home at this time with close OP OBGYN f/u. Will rx short course of zofran for home. She feels comfortable going home. Encouraged patient to keep upon fluid intake, discussed strict return precautions. She is in agreement with plan. Discharged in stable condition. Advised patient to avoid any further marijuana use as this could aggravate her vomiting and is as well not speak for . Medical Records Attestation: I reviewed the patient's medical records. Lab Data Attestation: I reviewed the patient's lab results. 10/26/24 12:20 10/26/24 15:50 Labs: Lab Results 10/26/24 10/26/24 10/26/24 Range/Units 12:20 12:32 12:33 WBC 17.7 H (4.5-10.0) K/mm3 RBC 4.98 (4.2-5.4) M/mm3 Hgb 14.5 (12.0-15.0) g/dL Hct 41.3 (37.0-47.0) % MCV 82.9 (80-100) fl MCH 29.1 (26-34) pg MCHC 35.1 (32-36) g/dl RDW 12.2 (11.5-14.5) % Plt Count 240 (150-375) k/mm3 MPV 10.2 (7.4-10.4) fl Immature Gran % (Auto) 0.6 H (0-0.5) % Neut % (Auto) 94.0 H (45.5-73.1) % Lymph % (Auto) 3.3 L (18.3-44.2) % [place] % (Auto) 1.8 L (2.6-8.5) % Eos % (Auto) 0.0 (0-4.4) % Baso % (Auto) 0.3 (0.2-1.2) % Lymph # (Auto) 0.59 L (0.9-3.2) K/mm3 [place] # (Auto) 0.3 (0.1-0.6) K/mm3 Eos # (Auto) 0.0 (0-0.3) K/mm3 Baso # (Auto) 0.1 (0.0-0.1) K/mm3 Abs Immat Gran (auto) 0.10 H (0.00-0.031) K/mm3 Absolute Neuts (auto) 16.6 H (1.3-6.7) K/mm3 Absolute Nucleated RBC 0.000 (0.0-0.012) K/mm3 Nucleated RBC % 0.0 (0.0-0.2) % Sodium 136 L (137-145) mmol/L Potassium 3.2 L (3.4-5.0) mmol/L Chloride 104 (98-107) mmol/L Carbon Dioxide 13 L (22-30) mmol/L Anion Gap 19 H (4-12) mmol/L BUN 11 (7-17) mg/dL Creatinine 0.50 L (0.7-1.0) mg/dL Estim Creat Clear Calc 106 ml/min Estimated GFR > 60 (59 - ) Glucose 168 H (65-110) mg/dL Calcium 9.5 (8.4-10.2) mg/dL Magnesium 1.6 (1.6-2.3) mg/dL Total Bilirubin 1.6 H (0.2-1.3) mg/dL AST 29 (14-36) U/L ALT 27 (6-35) U/L Alkaline Phosphatase 59 (38-126) U/L Total Protein 8.0 (6.3-8.2) g/dL Albumin 5.1 (3.5-5.1) g/dL Lipase 31 (23-300) U/L Beta HCG, Quant > 285895.00 mIU/ML Urine Color Yellow (Yellow) Urine Appearance Cloudy H (Clear) Urine pH 7.0 (5.0-9.0) Ur Specific [place] 1.020 (1.001-1.035) Urine Protein Trace (Negative) mg/dL Urine Glucose (UA) 2+ H (Negative) mg/dL Urine Ketones 4+ H (Negative) mg/dL Ur Blood (Man) Negative (Negative) Urine Nitrate Negative (Negative) Urine Bilirubin Negative (Negative) Urine Urobilinogen 0.2 (<2.0) mg/dL Add Ur Microanalysis Reviewed Leukocyte Esterase Rfl Trace H (Negative) THALIA/UL Urine RBC 3-5 H (0-2) /hpf Urine WBC 11-20 H (0-3) /hpf Ur Squamous Epith Cells None seen (Few) /hpf Urine Bacteria 3+ H /hpf Urine Casts 3-5 Urine Mucus Present /lpf POC Urine HCG, Qual (Negative) Urine Opiates Screen Negative (Negative) Urine Methadone Screen Negative (Negative) Ur Barbiturates Screen Negative (Negative) Ur Phencyclidine Scrn Negative (Negative) Ur Amphetamine Screen Negative (Negative) U Benzodiazepines Scrn Negative (Negative) Urine Cocaine Screen Negative (Negative) U Cannabinoids Screen Positive A (Negative) 10/26/24 10/26/24 Range/Units 12:36 15:50 WBC (4.5-10.0) K/mm3 RBC (4.2-5.4) M/mm3 Hgb (12.0-15.0) g/dL Hct (37.0-47.0) % MCV (80-100) fl MCH (26-34) pg MCHC (32-36) g/dl RDW (11.5-14.5) % Plt Count (150-375) k/mm3 MPV (7.4-10.4) fl Immature Gran % (Auto) (0-0.5) % Neut % (Auto) (45.5-73.1) % Lymph % (Auto) (18.3-44.2) % [place] % (Auto) (2.6-8.5) % Eos % (Auto) (0-4.4) % Baso % (Auto) (0.2-1.2) % Lymph # (Auto) (0.9-3.2) K/mm3 [place] # (Auto) (0.1-0.6) K/mm3 Eos # (Auto) (0-0.3) K/mm3 Baso # (Auto) (0.0-0.1) K/mm3 Abs Immat Gran (auto) (0.00-0.031) K/mm3 Absolute Neuts (auto) (1.3-6.7) K/mm3 Absolute Nucleated RBC (0.0-0.012) K/mm3 Nucleated RBC % (0.0-0.2) % Sodium 136 L (137-145) mmol/L Potassium 3.9 (3.4-5.0) mmol/L Chloride 108 H (98-107) mmol/L Carbon Dioxide 14 L (22-30) mmol/L Anion Gap 14 H (4-12) mmol/L BUN 8 (7-17) mg/dL Creatinine 0.48 L (0.7-1.0) mg/dL Estim Creat Clear Calc 110 ml/min Estimated GFR > 60 (59 - ) Glucose 135 H (65-110) mg/dL Calcium 7.8 L (8.4-10.2) mg/dL Magnesium (1.6-2.3) mg/dL Total Bilirubin (0.2-1.3) mg/dL AST (14-36) U/L ALT (6-35) U/L Alkaline Phosphatase (38-126) U/L Total Protein (6.3-8.2) g/dL Albumin (3.5-5.1) g/dL Lipase (23-300) U/L Beta HCG, Quant mIU/ML Urine Color (Yellow) Urine Appearance (Clear) Urine pH (5.0-9.0) Ur Specific [place] (1.001-1.035) Urine Protein (Negative) mg/dL Urine Glucose (UA) (Negative) mg/dL Urine Ketones (Negative) mg/dL Ur Blood (Man) (Negative) Urine Nitrate (Negative) Urine Bilirubin (Negative) Urine Urobilinogen (<2.0) mg/dL Add Ur Microanalysis Leukocyte Esterase Rfl (Negative) THALIA/UL Urine RBC (0-2) /hpf Urine WBC (0-3) /hpf Ur Squamous Epith Cells (Few) /hpf Urine Bacteria /hpf Urine Casts Urine Mucus /lpf POC Urine HCG, Qual Positive (Negative) Urine Opiates Screen (Negative) Urine Methadone Screen (Negative) Ur Barbiturates Screen (Negative) Ur Phencyclidine Scrn (Negative) Ur Amphetamine Screen (Negative) U Benzodiazepines Scrn (Negative) Urine Cocaine Screen (Negative) U Cannabinoids Screen (Negative) Imaging Data Attestation: I personally reviewed and interpreted this imaging study as follows: Radiologist's impression: ITS Impressions Ultrasound 03/20/25 14:20 IMPRESSION: Intrauterine with yolk sac and pole. Heart rate 178 bpm. Gestational age is 8 weeks and 3 days. YANIRA is June 04, 2025. Discharge Plan Discharge Clinical Impression: Marijuana use during , 8 weeks gestation of , Dehydration Nausea and vomiting Qualifiers: Vomiting type: unspecified Qualified Code(s): R11.2 - Nausea with vomiting, unspecified Patient Disposition: Home, Self-Care Condition: Stable Instructions: Antibiotic Form, Dehydration (ED), Clear Liquid Diet (ED), Acute Nausea and Vomiting (ED) Additional Instructions: Avoid further marijuana use as this could cause worsening of your vomiting and harm to your baby. Your urine showed signs of possible infection. Take Macrobid as prescribed. Follow-up with OBGYN for urine culture results. Utilize zofran as needed for further nausea. Increase fluid intake. Stay very well hydrated. Recommend electrolyte rich fluids, gatorade, pedialyte, body armour. Recommend clear liquids or bland diet until symptoms improve, such as bananas, rice, applesauce, toast, or crackers. Follow up with your OBGYN for further evaluation. Return to the ED if you experience worsening or severe symptoms, unable to keep down food or drink, vaginal bleeding, severe pain, fevers, rectal bleeding, vomiting blood, or any other symptoms of concern. Patient Language: Finnish Prescriptions: New ondansetron 4 mg tablet,disintegrating 4 mg PO Q8H PRN (Reason: nausea and vomiting) Qty: 15 0RF nitrofurantoin monohyd/m-cryst 100 mg capsule 100 mg PO Q12H 5 Days Qty: 10 0RF Rx Instructions: must administer with a meal/food No Action naproxen 500 mg tablet 500 mg PO BID PRN (Reason: pain) Qty: 30 0RF methocarbamol 500 mg tablet 500 mg PO Q6H PRN (Reason: muscle pain/spasm) Qty: 30 0RF methylprednisolone [Medrol ([place])] 4 mg tablets,dose pack See Rx Instructions PO .COMPLEX Qty: 21 0RF Rx Instructions: orally per package directions ondansetron 4 mg tablet,disintegrating 4 mg PO Q8H PRN (Reason: nausea and vomiting) Qty: 10 0RF famotidine 10 mg tablet 10 mg PO DAILY Qty: 14 0RF Follow-up/Referrals: Wei Bautista MD [Physician] - (OBGYN) Kalia Small MD [Primary Care Provider] - Time of Disposition: 16:14
[2024-10-26 13:26] LABS: Amphetamine Screen Urine Negative (Negative); Barbiturate Screen Urine Negative (Negative); Benzodiazepines Screen Urine Negative (Negative); Cannabinoid Screen Urine Positive (Negative); Cocaine Screen Urine Negative (Negative); Methadone Screen Urine Negative (Negative); Opiate Screen Urine Negative (Negative); Phencyclidine Screen Urine Negative (Negative)
[2024-10-26] MEDS: KCL 20 MEQ/SW 100 ML 100 ML 50 MEQ IVPB (13:29)
[2024-10-26 13:38] LABS: Add Urine Microscopic? YES; Appearance Urine Cloudy (Clear); Bacteria Urine 3+ /hpf; Bilirubin Urine Negative (Negative); Blood Urine Negative (Negative); Color Urine Yellow (Yellow); Glucose Urine UA 2+ mg/dL (Negative); Ketones Urine 4+ mg/dL (Negative); Leukocyte Esterase Ur Trace LEU/UL (Negative); Mucus Urine Present /lpf; Need Manual Microscopic Reviewed; Nitrate Urine Negative (Negative); Protein Urine Trace mg/dL (Negative); Squamous Epithelial Cell Urine None Seen /hpf (Few); Urobilinogen Urine 0.2 mg/dL (<2.0)
[2024-10-26 13:56] LABS: Magnesium 1.6 mg/dL (1.6-2.3)
[2024-10-26] MEDS: MAGNESIUM SULF 2 GM/WATER 50ML 2 GM/50 ML BAG IVPB (14:23)
[2024-10-26 15:26] LABS: Beta HCG Quantitative > 375000.00 mIU/ML
[2024-10-26 16:09] LABS: Anion Gap 14 mmol/L (4-12); Blood Urea Nitrogen 8 mg/dL (7-17); Calcium 7.8 mg/dL (8.4-10.2); Carbon Dioxide 14 mmol/L (22-30); Chloride 108 mmol/L (98-107); Estimated CRCL calculation 110 ml/min; Estimated Glomerular Filt Rate > 60; Glucose 135 mg/dL (65-110); Potassium 3.9 mmol/L (3.4-5.0); Sodium 136 mmol/L (137-145)
--- NOTE | 2024-10-26 16:27 | PC.NURSE ---
Tolerating po fluids well.
== END 2024-10-26 16:29 | disposition home or self-care (01) ==
PROVIDERS: Emergency Provider Physician Assistant; PCP Emergency Medicine; Referring Provider Obstetrics & Gynecology
DX: O26.891 Other specified pregnancy related conditions, first trimester (principal); Z3A.08 8 weeks gestation of pregnancy; F12.90 Cannabis use, unspecified, uncomplicated; E86.0 Dehydration
CPT/HCPCS: 36415; 76801; 80048; 80053; 80307; 81001; 81025; 83690; 83735; 84702; 85025; 87086; 96365; 96366; 96367; 96375; 99284; J1200; J2765; J3475; J3480; J7030

== ENCOUNTER 2025-04-18 08:00 | Outpatient (RCR) | payer OTHER, SELFPAY ==
[2025-04-20] MEDS: RHO(D) IMMUNE GLOBULIN 300 MCG/2 ML SYRINGE IM (08:06)
== END 2025-07-17 23:59 | disposition home or self-care (01) ==
LOC: ANHLAB 08:00
PROVIDERS: PCP Emergency Medicine; Visit Provider Obstetrics & Gynecology
DX: Z36.89 Encounter for other specified antenatal screening (principal)
CPT/HCPCS: 36415; 85461; 86850; 86900; 86901; 90384; 96372; J2790

== ENCOUNTER 2025-05-20 17:09 | Inpatient (IN) | payer OTHER, SELFPAY ==
[2025-05-20] VITALS (30 sets, daily range): BP systolic 122–127; BP diastolic 73–87; PULSE 84–114; TEMP 36.8; O2SAT 94–100; BMI 26.8
--- OUTSIDE RECORDS SUMMARY | 2025-05-20 17:37 | XMS_ITS | Clinical Summary ---
Author Organization [facility] Address [facility] [place] [address] Care Team Providers Care Credit Administration Manager Name Role Phone Kalia Small MD Primary Care Provider [phone] Wei Bautista MD Unavailable [phone] Allergies No known active allergies Medications ondansetron (ZOFRAN-ODT) 4 MG disintegrating tablet Take 1 tablet (4 mg total) by mouth every 8 (eight) hours as needed for Nausea. 20 tablet 4 Active ondansetron (ZOFRAN-ODT) 4 MG disintegrating tablet Take 1 tablet (4 mg total) by mouth every 8 (eight) hours as needed for Nausea. 20 tablet 5 Active potassium chloride CR (KLOR-CON M) 10 MEQ tablet Take 2 tablets (20 mEq total) by mouth 2 (two) times daily. 12 tablet 5 Active Social History Tobacco Use Types Packs/Day Years Used Date Smoking Tobacco: Never Smokeless Tobacco: Current Tobacco Cessation:Ready to Q uit: Not Asked; Counseling Given: Not Answered Alcohol Use Standard Drinks/Week Comments Never 0 (1 standard drink = 0.6 oz pur e alcohol) Comments Yes Sex and Gender Information Value Date Recorded Sex Assigned at Female 10/27/2024 8:46 PM CDT Legal Sex Female 7:11 PM CDT Gender Identity Not on file Sexual Orientation Not on file Last Filed Vital Signs Vital Sign Reading Time Taken Comments Blood Pressure 125/90 11/28/2024 3:32 PM CDT Pulse 66 11/28/2024 3:32 PM CDT Temperature 36.6 C (97.8 F) 11/28/2024 3:32 PM CDT Respiratory Rate 16 11/28/2024 3:32 PM CDT Oxygen Saturation 100% 11/28/2024 3:32 PM CDT Inhaled Oxygen Concentration - - Weight 49.9 kg (110 lb) 11/28/2024 12:31 PM CDT Height 152.4 cm (5') 11/28/2024 12:31 PM CDT Body Mass Index 21.48 11/28/2024 12:31 PM CDT Plan of Treatment Health Maintenance Due Date Last Done Comments Cervical Cancer Screening Pap Smear (Age 21 to 29) Every 3 Years 2002 Cervical Cancer Screening 2002 Annual Physical 2005 HPV Vaccines (2 - 2-dose series) 12/20/2014 06/22/2014 Chlamydia Screening Females ages 16-24 2018 Meningococcal B Vaccine (1 of 2 - Standard) 2018 Hepatitis C 2020 PHQ-2 (Physician [place]) 08/09/2024 COVID-19 Vaccine ( - season) 2025 Influenza Adult (#1) 2025 08/19/2021, 06/22/2014, 06/23/2004 DTaP, Tdap and Td Vaccines (7 - Td or Tdap) 08/18/2031 08/18/2021, 02/28/2011, 05/15/2008, Additional history exists RSV Immunization or 60+ Years (1 - 1-dose 75+ series) 2077 Hepatitis B Vaccines Completed 03/20/2003, 2002, 2002 Meningococcal Vaccine Completed 05/07/2020, 014 Pneumococcal Vaccine: Pediatrics (0 to 5 Years) and At-Risk Patients (6 to 49 Years) Aged Out No longer eligible based on patient's age to complete this topic RSV Immunizations Under 20 Months Aged Out No longer eligible based on patient's age to complete this topic Insurance [employer] Care Teams Credit Administration Manager Relationship Specialty Start Date End Date Kalia Small MD [address] [facility] [address] [place] [address] PCP - General FAMILY PRACTICE 11/13/24 Wei Bautista MD [facility] [address] [place] [address] OBN 11/13/24
--- OUTSIDE RECORDS SUMMARY | 2025-05-20 17:37 | XMS_ITS | Data Portability ---
Author Organization [facility] Address [address] [place] [address] [place] [address] Care Team Providers Care Division Director Name Role Phone CONCETTA BURDEN Primary Care Provider Assessment Encounter Date Assessment Date Assessment LastModified by Organization Details LastModified Time 03/13/2022 03/13/2022 f/u wwe or as needed [email or web address] Not available 03/13/2022 10:48:52 Plan of Treatment Reminders Order Date Submit Date Provider Last Modified By Organization Details Last Modified Time Details Appointments None recorded. Lab None recorded. Referral None recorded. Procedures None recorded. Surgeries None recorded. Imaging US, obstetric, biophysical profile 2020 021 [email or web address] [place], [address], [address], [place], [address], 11:05:37 Medication Orders Slynd 4 mg (28) tablet 2021 022 [place] [facility], [address], [place], [id number], 10:48:19 ondansetron 4 mg disintegrat ing tablet 2021 022 [id number], [address], [place], [address], 10:28:58 Prozac 10 mg capsule 2021 022 [email or web address] 1 [facility]858, [address], [place], [address], 10:28:41 Patient TargetsNo targets recorded. Patient InstructionsNo [...] men Date: 3:16 PM Resul t Date: 4:15 PM Resul t Statu s: Final resul t Abnor mal: No Resul ting Lab: [facility] [address] [facility] [address] Tel: CULTU RE ----- ----- ----- --- No Group B strep isola mihir at 2 days (yancy ctive broth enhan cemen t) Not Available [facility] (Lab) [address] [facility], [place], [address], 08/16/2021 17:17:29 07/25/20 21 07/25/2021 US, elmira braswell follo w-up No observ ation record ed. [email or web address] [place] [address], [place], [address], 07/25/2021 16:53:58 07/25/20 21 07/25/2021 US, jarvise tric follo w-up No observ ation record ed. [email or web address] [facility] [address], [place], [address], 07/28/2021 10:52:07 07/29/20 21 07/29/2021 US, obste tric, bioph ysica l profi le No observ ation record ed. [email or web address] [place] [address], [place], [address], 07/29/2021 11:28:11 07/29/20 21 07/29/2021 US, obste tric, bioph ysica l profi le No observ ation record ed. JANY [facility] [address], [place], [address], 08/04/2021 19:44:45 Result Notes None recorded. Problems Name Problem SNOMED Code Status Onset Date Resolution Date Notes Provider Name and Address Organization Details Recorded Time Depressi ve disorder 77433935 Completed bipolar - d/cj meds abilify & Lexapro Damaris Bohnenstie hl null, [facility] 2 13:26:56 Cystic fibrosis 490208066 Completed carrier - FOB negative Damaris Bohnenstie hl null, [facility] 2 13:26:56 Blood group O Rh(D) negative 717044339 Completed pt given 28wk labs for rhogam Damaris Bohnenstie hl null, [facility] 2 13:26:56 Depressi ve disorder 90343958 Active bipolar - d/cj meds abilify & Lexapro Damaris Bohnenstie hl null, [facility] 2 13:26:56 Pregnanc y 85031717 Completed 202009/09/2021 Damaris Bohnenstie hl null, [facility] 2 13:27:01 RhD negative 027760346 Completed 202009/19/2021 Mariel Black null, [facility] 2 16:49:35 Problem Notes None recorded. Medical Equipment None Reported. [...] Recorded Body height Body mass index (BMI) [Percentile] Per age and sex Body mass index (BMI) Body weight Systolic And Diastolic Provider Name and Address Organization Details Last Updated DateTime 08/13/2021 154.94 cm 75 % 24.2 kg/m2 87951.8 2336 g 138/88 mm[Hg] Chelsea Carney [facility] 2 14:18:35 Date Recorded Body height Body mass index (BMI) [Percentile] Per age and sex Body mass index (BMI) Body weight Systolic And Diastolic Provider Name and Address Organization Details Last Updated DateTime 09/19/2021 154.94 cm 32 % 20.2 kg/m2 58720.3 8 g 124/80 mm[Hg] Mariel Black [facility] 2 16:49:24 Date Recorded Body height Body mass index (BMI) Body mass index (BMI) [Percentile] Per age and sex Body weight Systolic And Diastolic Provider Name and Address Organization Details Last Updated DateTime 03/13/2022 154.94 cm 17.6 kg/m2 4 % 44126.0 9 g 106/71 mm[Hg] Mariel Black [facility] 2 10:27:57 Date Recorded Body height Body mass index (BMI) [Percentile] Per age and sex Body mass index (BMI) Body weight Systolic And Diastolic Provider Name and Address Organization Details Last Updated DateTime 07/29/2021 154.94 cm 70 % 23.4 kg/m2 74142.4 5388 g 104/69 mm[Hg] Chelsea Carney [facility] 1 10:33:16 Social History Question Answer Notes LastModified by Organizat ion Details LastModified Time Tobacco Smoking Status Never Smoker Mariel Black [facility] 03/13/2022 10:28:25 Do You Have An Advance Directive? No [email or web address] Information n ot available 02/26/2021 Are You Blind Or Do You Have Difficulty Seeing? No [email or web address] Information n ot available 02/26/2021 What Is Your Level Of Caffeine Consumption? Occasional [email or web address] Information not available 02/26/2021 How Much Tobacco Do You Chew? None [email or web address] Information not available 02/26/2021 In The 14 Days Before Symptom Onset, Have You Had Close Contact With A Laboratory-confirm ed COVID-19 While That Case Was Ill? No [email or web address] Information n ot available 02/26/2021 In The 14 Days Before Symptom Onset, Have You Had Close Contact With A Person Who Is Under Investigation For COVID-19 While That Person Was Ill? No [email or web address] Information not available 02/26/2021 Have You Been To An Area Known To Be High Risk For COVID-19? No [email or web address] Information not available 02/26/2021 Are You Deaf Or Do You Have Serious Difficulty Hearing? No Information not available 02/26/2021 What Type Of Diet Are You Following? REGULAR [email or web address] Information n ot available 02/26/2021 What Is The Highest Grade Or Level Of School You Have Completed Or The Highest Degree You Have Received? [id number] [email or web address] Information not available 02/26/2021 Are There Any Guns Present In Your Home? No [email or web address] Information not available 02/26/2021 Do You Use Protection During Sex? Always [email or web address] Information not available 03/13/2022 Do You Use Your Seat Belt Or Car Seat Routinely? Yes [email or web address] Information not available 02/26/2021 Do You Have Smoke And Carbon Monoxide Detectors In Your Home? Yes [email or web address] Information not available 02/26/2021 How Much Tobacco Do You Smoke? No [email or web address] Information not available 02/26/2021 Do You Use Sunscreen Routinely? No [email or web address] Information not available 02/26/2021 Has Tobacco Cessation Counseling Been Provided? No [email or web address] Information not available 03/13/2022 Have You Used IV Drugs? No [email or web address] Information not available 02/26/2021 Do You Have Difficulty Walking Or Climbing Stairs? No [email or web address] Information not available 03/13/2022 Sex: Unknown Functional Status Question Answer Note LastModified by Organizat ion Details LastModified Time Do you use any illicit or recreational drugs? No Information not available 01/17/2021 Do you or have you ever used any other forms of tobacco or nicotine? No [email or web address] Information not available 03/13/2022 What is your level of alcohol consumption? None Information not available 01/17/2021 Are you able to walk independently without assistance or assistive devices? YESWOREST [email or web address] Information not available 02/26/2021 Are you able to care for yourself independently? Yes [email or web address] Information not available 03/13/2022 What is your occupation? N/A [email or web address] Information not available 03/13/2022 Do you have difficulty dressing, bathing, grooming, or toileting? No [email or web address] Information not available 03/13/2022 What is your exercise level? Moderate [email or web address] Information not available 03/13/2022 Mental Status Question Answer Note LastModified by Organization D etails LastModified Time Do you feel stressed (tense, restless, nervous, or anxious, or unable to sleep at night)? [id number] [email or web address] Information not available 02/26/2021 Family History Relationship Description Onset Age of this Age Resolved Age Notes LastModified by Organization Details LastModified Time Father No current problems or disability [email or web address] Not available 02/03 14:29:02 Mother No current problems or disability [email or web address] Not available 02/03 14:29:02 Medical History Condition Response Other N Blood Transfusion N Dermatologic Disorders N Gestational Diabetes N Anxiety Disorder Y Autoimmune disease N Arthritis N Polyps N Infertility N Acid Reflux (GERD) N Cancer N Varicosities N Stroke N Neurologic/Epilepsy Y Fibromyalgia N Headaches N Kidney Disease N Heart Problems N Kidney or Bladder Problems N Eating Disorder N Art (IVF or FET) N Hepatitis/Liver Disease N No Past Medical History N Urinary Tract Infection N Asthma N Trauma/Violence N Thrombophilias N Allergies (Food, seasonal, environmental ) N Breast Cancer N Drug/Latex Allergies/Reactions N Lung Disease N Defects or Inherited Disease N Breast Problem N Hematologic disorders N Anesthesia Complications N History of STI N Deep Vein Thrombosis N Polycystic ovary syndrome N History of abnormal pap N Endometriosis N High Cholesterol N Thyroid Problems N GI Problems N Anemia N Psychiatric Illness Y Ovarian Cancer N Diabetes N Pulmonary (TB, Asthma) N Eczema N Abuse/Domestic Violence N Depression/ depression Y Heart Disease N Pre-Eclampsia N Hypertension N Osteoporosis N Gynecological History Statement/Question Response Date of [...] Diagnosis SNOMED-CT Code Diagnosis ICD10 Code Diagnosis IMO Codes Diagnosis Note [id number] Serenity Meraz MD [place] [address] [address] 01/17/2021 15:23:54 01/17/2021 16:54:43 Nausea and vomiting 93795264 R11.2 Moderate h yperemesis gravidarum 978525380 O21.0 Bipolar disorder 7508401 4 F31.9 Ketonuria 853859596 R82. 4 [id number] [facility] [address] [address] 02/04/2021 15:48:17 02/04/2021 18:06:56 test positive 473022267 Z32.01 Risk factors addressed: Tobacco Cessation, Safe Sexual Practices, environmen addy, work hazards, travel restrictio ns, seat belt use.Eat a health well balanced diet, avoid alcohol, tobacco, and street drugs.Enga ge in daily low impact exercise, avoid temperatur e extremes, and cat, rodent, and bird feces.Avoi d travel to areas where zika virus is a concern.Of fered cf/sma/nip t. Considerin g all 3. Handouts given and discussed with patient.Ch ildbirth classes recommende d.New OB sheet given.If previous , counseling .Pt verbalizes that she understand s the importance of above instructio ns.All questions were answered.P atient reminded to have annual well woman examinatio n and address [facility] . [id number] Alex Macias MD [place] [address] [address] 02/04/2021 15:47:26 02/04/2021 17:27:01 [id number] Serenity Meraz MD [place] [address] [address] 02/26/2021 12:24:32 02/26/2021 13:06:01 screening 009047762 Z36.82 [id number] Alex Macias MD [place] [address] [address] 03/07/2021 11:51:33 03/07/2021 13:09:18 Routine care 958779890 Z34.90 [id number] [facility] [address] [address] 04/01/2021 11:35:52 04/01/2021 15:16:09 Routine care 314620439 Z34.91 [id number] April Correa CNM [place] [address] [address] 04/30/2021 09:42:53 04/30/2021 10:15:49 Routine care 934268968 Z34.91 [id number] Serenity Meraz MD [place] [address] [address] 05/08/2021 16:25:03 05/08/2021 19:37:47 screening 096165060 Z36.3 [id number] Serenity Meraz MD [place] [address] [address] 05/20/2021 17:05:48 05/20/2021 17:36:42 RhD negative 503937050 Z01.83 Routine an tenatal care 169155975 Z34.02 [id number] Serenity Meraz MD [facility] [address] [address] 06/17/2021 11:08:23 06/17/2021 11:44:45 Routine care 026568401 Z34.02 [id number] Serenity Meraz MD [place] [address] [address] 07/01/2021 11:10:52 07/07/2021 18:17:44 [id number] Serenity Meraz MD [place] [address] [address] 07/15/2021 10:26:05 07/15/2021 11:34:37 Depressive disorder 56521297 F32.A Routine an tenatal care 666172582 Z34.02 [id number] MD [facility] [address] [address] 07/25/2021 12:30:03 07/25/2021 13:30:13 Bleeding from female genital tract during 4185139072 2264693 O46.93 97479 MD [facility] [address] [address] 07/25/2021 13:44:24 07/25/2021 14:12:57 Bleeding from female genital tract during 4523424060 1412987 O46.93 Z3A.33 [id number] Serenity Meraz MD [place] [address] [address] 07/29/2021 09:57:24 07/29/2021 10:30:49 Polyhydramnios 42883418 O40.3XX0 Z3A.33 [id number] Serenity Meraz MD [place] [address] [address] 07/29/2021 09:58:03 07/29/2021 11:07:01 Routine care 346192552 Z34.02 Depressive disorder 3548 9007 F32.A [id number] Serenity Meraz MD [place] [address] [address] 08/13/2021 14:14:10 08/13/2021 14:42:45 Depressive disorder 03773927 F32.A Routine an tenatal care 470184396 Z34.02 [id number] Cadence Garsia [facility] [address] [address] 09/19/2021 16:39:27 09/22/2021 16:51:20 care 782339723 Z39.2 Mixed anxi ety and depressive disorder 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 F41.8 Nausea and vomiting 1693 2000 R11.2 [id number] Cadence Garsia [facility] [address] [address] 03/13/2022 10:14:25 03/13/2022 10:58:30 Contraception care management 703752117 Z30.9 Anxiety 86748720 F41.9 see pcp to restart abilify, return to [facility] for counseling , to ED if suicidal thoughts Health Concerns Section Related Observation LastModified by Organization Detai ls LastModified Time None Recorded Concern Status LastModified by Organization Details LastModified Time None Recorded Advance Directives Directive N: Payers Insurance Date Sequence Insurance Name Policy Number Policy Oconnell Covered Member ID Oconnell Member ID Guarantor Name 09/19/2021 1 [facility] [id number] Jj Kelin [id number] hCante Wynne 01/17/2021 1 [facility] Jj Neville [id number] Chante Ricci 05/17/2023 PAYMENT PLAN Chante Wynne 06/24/2024 1 [facility] - DOS ON OR AFTER 21 (MEDICAID REPLACEMENT - HMO) Chante Wynne [id number] Chante Wynne 06/24/2024 1 MEDICAID-OR: [facility] Chante Wynne [id number] Chante Wynne 01/12/2023 PAYMENT PLAN Chante Wynne Notes Date Note Type Note Provider Name and Address Organization Details Recorded Time 1 text/html Generic HPI TemplateReported by Patient Serenity Meraz MD [address], [place], [address], [facility] 07/29/2021 11:05:30 2 text/html Generic HPI TemplateReported by Patient Serenity Meraz MD [address], [place], [address], [facility] 08/13/2021 14:31:55 2 text/html VisitReported by PatientHPIFor quality, patient reportsnsvd. For context, patient reportscomplications of : none,complications of labor: none, complications: none, depression, andgood support from partner/family. For associated symptoms, patient reportsno abnormal bleeding,no vaginal discharge,no pelvic pain,laceration well healed,no constipation,no fecal incontinence, andno dysuria.wants bcm, anxiety increasing, no suicidal thoughts Cadence Garsia, [facility] [address], [place], [address], [facility] 09/24/2021 09:01:04 2 text/html ROS as noted in the HPI rf on bcm, happy with slynd.anxiety increasing, prozac makes her too tired, was on abilify prior to and it worked well, also has seen [facility] for counseling in the past no suicidal thoughts, situational mostly right now Cadence Garsia, [facility] [address], [place], [address], [facility] 03/13/2022 10:50:18 OBGyn Episode Ob Episode Information Episode Created Date Number of Fetuses Patient Bloodtype Patient rh Status Prepregnancy Weight lbs Domestic Partner Domestic Partner Phone Father Name Script Reader Status 03/07/20 21 1 O Negative 93 CLOSED Fetus Data First Name Last Name Admitted to NICU Weight (g) Sex Living Outcome Pediatric Complications Fetus ID Race Codes Race Delivery Type Emberl y 2834.95 F true Prematur e Cord around body, terminal meconium 21199 Vaginal Delivery Problems Problem Notes Meraz ptDeclines COVID vacc ine Problem Name Start Date End Date Resolution Snomed Code Not e Cystic fibrosis 468765241 irby ier - FOB negative Depressive disorder 82486344 bipolar - d/cj meds abilify & Lexapro Blood group O Rh(D) negative 186873044 pt given 28wk l abs for rhogam [...] Weight in lbs Pre/Post Dialysis Refused Weight 91.6432378597061 BP Diastolic BP Location Tested BP Systolic [...] Weight in lbs Pre/Post Dialysis Refused Weight 102.413210499249 BP Diastolic BP Location Tested BP Systolic [...] Weight in lbs Pre/Post Dialysis Refused Weight 110.388427506323 BP Diastolic BP Location Tested BP Systolic [...] Weight in lbs Pre/Post Dialysis Refused Weight 113.779300181888 BP Diastolic BP Location Tested BP Systolic [...] given for Rhogam and 28w labs at [place]. Flowsheet Date 06/17/2021 Shah Score Blood Edema Fundus Height Fundus Units Glucose Ketones Leukocytes Nitrite Labor Signs Protein Cervic Dilation Cervic Effacement Cervic Station neg trace 27 trace Type Weight in lbs Pre/Post Dialysis Refused Weight 118.132162255407 BP Diastolic BP Location Tested BP Systolic [...] Weight in lbs Pre/Post Dialysis Refused Weight 125.096644331270 BP Diastolic BP Location Tested BP Systolic [...] Weight in lbs Pre/Post Dialysis Refused Weight 125.852054409124 BP Diastolic BP Location Tested BP Systolic [...] Weight in lbs Pre/Post Dialysis Refused Weight 121.272482451707 BP Diastolic BP Location Tested BP Systolic [...] Weight in lbs Pre/Post Dialysis Refused Weight 124.750060872226 BP Diastolic BP Location Tested BP Systolic [...] Weight in lbs Pre/Post Dialysis Refused Weight 128.494859287045 BP Diastolic BP Location Tested BP Systolic BP Type 88 138 Fetus Heart Rate Present A 155 Fetus Movement A Yes Comments Doing well, just very nervou s about delivery. EPDS 14, denies SI/HI, will start zoloft in hospital after delivery and will schedule appt with her psychiatrist for one month after due date. GBS done and discussed. Labor precautions. 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 Menstrual History Last Menstrual Date Menses Monthly On Bcp Conception Prior Menses Frequency Hcg Plus Date Menarche Onset Age 0412/04/2020 Genetic Screening And Infection History Question Response Note Mental Retardation/Autism false Patient's Age Will Be 35 Years Or Older At Estim ated Date of Delivery false Thalassemia (Belizean, Cayman Islander, Mediterranean, Or Background): MCV < 80 false Neural Tube Defect (Meningomyelocele, Spina Bifi da, Or Anencephaly) false Congenital Heart Defect false Down Syndrome false Torey-Sachs (eg, Sabianist, Cajun, Rwandan-Marshallese) f alse Jason Disease false Sickle Cell Disease Or Trait () false Hemophilia Or Other Blood Disorders false Muscular Dystrophy false Cystic Fibrosis false Kendal's Chorea false Intellectual Disability/Autism false If Yes, [...] Post Complications Tubal Sterilization Discharge Date Comments [facility] true Cadence Garsia CNM Cystic Fibrosis & SROM Gbs unknown Discharge Information Feeding Method Contraceptive Method Maternal HG B and HCT Levels
[2025-05-20 18:03] LABS: Hematocrit 38.3 % (37.0-47.0); Hemoglobin 12.8 g/dL (12.0-15.0); Immature Granulocyte Percent A 1.3 % (0-0.5); Lymphocytes Absolute Auto 2.09 K/mm3 (0.9-3.2); Mean Corpuscular HGB Conc 33.4 g/dl (32-36); Mean Corpuscular Hemoglobin 27.3 pg (26-34); Mean Corpuscular Volume 81.7 fl (80-100); Nucleated Red Blood Cells Absolute Auto 0.000 K/mm3 (0.0-0.012); Nucleated Red Blood Cells Perc 0.0 % (0.0-0.2); Platelet Count Result 235 k/mm3 (150-375); Red Blood Count 4.69 M/mm3 (4.2-5.4); White Blood Count 13.7 K/mm3 (4.5-10.0)
--- NOTE | 2025-05-20 18:24 | P.HP_ITS ---
H&P: HPI History of Present Illness Date/Time: 05/20/25 18:24 Chief Complaint: Her membranes at term Narrative: This is a 24-year-old 3 para [address] whose last menstrual period is unknown, EDC is 06/05/2025, confirmed by 30 week ultrasound who presents at 37 and 5 7th weeks gestation with spontaneous rupture membranes prior to admission her has been uncomplicated. She passed her diabetic testing she is negative for group B strep. She spontaneously ruptured just prior to admission Review of Systems Review of Systems: All systems reviewed & are unremarkable except as noted in HPI. All systems reviewed & are unremarkable except as noted in HPI and below PMFSH Past Medical History Medical History Suppression of menses Bipolar 1 disorder Self-mutilation Hyperemesis gravidarum Depression Anxiety Surgical History Surgical History No pertinent past surgical history Family History Family History Sibling Diabetes mellitus Grandparent Diabetes mellitus Grandparent Breast cancer Social History Social History Smoking status: Former smoker Tobacco type: e-cigarettes/vaping Alcohol intake: current Substance use: never Substance use type: marijuana Other substance usage details: daily Do You Feel Safe in your Home?: Yes Lack of Transportation: No Lack of Food: Never True Current Housing: I Have Housing Concerned About Future Housing: No Difficulty Paying Gas/Electric Bills: No Difficulty Paying for Meds: No Currently Unemployed: No Education: High School Diploma/GED Difficulty w/ Childcare or Family Care: No Living arrangements: with family Occupation/Education: occupation Gender identity (if verbalized by the patient): Female Sexual Orientation (if Verbalized by the Patient): Straight or Heterosexual Spiritual care concerns: No Meds Home Medications and Allergies Home Medications ?Medication ?Instructions ?Recorded ?Confirmed ?Type vit no.95-ferrous 1 tablet PO DAILY 05/19/25 05/19/25 History fumarate 28 mg-folic acid 800 mcg tablet () Allergies Allergy/AdvReac Type Severity Reaction Status Date / Time No Known Allergies Allergy Unknown Verified 05/19/25 14:18 Vital Signs Vital Signs - 24 hr 05/20/25 17:31 05/20/25 17:44 05/20/25 17:49 Pulse Rate 99 Blood Pressure 124/75 Pulse Oximetry 94 95 05/20/25 17:54 05/20/25 17:59 05/20/25 18:01 Pulse Rate 97 Blood Pressure 125/81 Pulse Oximetry 96 96 05/20/25 18:04 05/20/25 18:09 05/20/25 18:14 Pulse Rate Blood Pressure Pulse Oximetry 95 96 95 05/20/25 18:16 05/20/25 18:19 Pulse Rate 84 Blood Pressure 122/80 Pulse Oximetry 95 Exam Const: General: cooperative, healthy appearing and comfortable Nutritional Appearance: average body habitus Orientation/consciousness: oriented to person, oriented to place and oriented to time HENMT: Head: normal to inspection Resp: Effort & Inspection: normal respiratory effort Cardio: Rate: regular rate Rhythm: regular rhythm Heart sounds: S1 normal heart sound present and S2 normal heart sound present GI: Inspection: normal to inspection (Gravid soft uterus) : External Female Exam: normal external appearance Speculum Exam - Vagina: normal appearance of the vagina Speculum Exam - Cervix: normal noemi earance of the cervix (Cervix 1/thick/-0. Clear fluid. FHTs reassuring) H&P: Results Labs Labs: Short CBC 05/20/25 Range/Units 17:42 WBC 13.7 H (4.5-10.0) K/mm3 Hgb 12.8 (12.0-15.0) g/dL Hct 38.3 (37.0-47.0) % Plt Count 235 (150-375) k/mm3 Assessment and Plan Assessment and plan (1) Term : Code(s): Z34.90 - Encounter for supervision of normal , unspecified, unspecified trimester Status: Acute (2) Spontaneous rupture of membranes: Status: Acute Plan Spontaneous vaginal delivery is expected. She is an epidural candidate. Consider Pitocin as contractions are irregular
--- NOTE | 2025-05-20 18:28 | LDADM ---
This patient, Chante Wynne, was admitted to Labor/Delivery/Recovery 108 on 05/20/25 at 17:09. Plans for labor, pain management and were discussed with patient. Patient/family oriented to hospital policies and general routines including ID bracelet, bed and alarms, visiting hours, pain management, procedures, bathroom and other care routines, personal items, smoking policy, room service/diet and guest tray routines, security routines, and visiting hours. Patient/Family are encouraged to report perceived risks to care and to ask questions if they do not understand what they are told or what they should do. See OBIX for further documentation.
[2025-05-20 19:03] LABS: Syphilis IgG/IgM Antibody Non-Reactive (Nonreactive)
[2025-05-20] MEDS: LACTATED RINGERS 1,000 ML 125 ML IV CONT (23:51)
[2025-05-20] MEDS: OXYTOCIN 30 UNITS/NS 500 ML 30 UNITS/500 ML BAG IV CONT (23:55)
[2025-05-21] VITALS (169 sets, daily range): BP systolic 85–165; BP diastolic 43–127; PULSE 63–151; RESP 16–18; TEMP 36.6–37.6; O2SAT 93–100
--- NOTE | 2025-05-21 03:04 | P.PNAN_ITS ---
Anes - Eval Pre Procedure Procedure: labor pain management Date/Time: 05/21/25 03:04 Surgeon: Kev Marin Pre Op Diagnosis: SOB Patient Data Age: 24 Gender: F Height: 1.52 m Weight: 62.27 kg Last Vital Signs Temp 98.2 F 05/20/25 22:16 Pulse 92 05/20/25 20:31 BP 126/73 05/20/25 20:31 Pulse Ox 100 05/21/25 03:02 O2 Del Method Room Air 05/20/25 18:52 Allergies Allergy/AdvReac Type Severity Reaction Status Date / Time No Known Allergies Allergy Unknown Verified 05/19/25 14:18 Home Medications ?Medication ?Instructions ?Recorded ?Confirmed ?Type vit no.95-ferrous 1 tablet PO DAILY 05/19/25 05/19/25 History fumarate 28 mg-folic acid 800 mcg tablet () Laboratory Tests 05/20/25 17:42 WBC 13.7 H K/mm3 (4.5-10.0) RBC 4.69 M/mm3 (4.2-5.4) Hgb 12.8 g/dL (12.0-15.0) Hct 38.3 % (37.0-47.0) MCV 81.7 fl (80-100) MCH 27.3 pg (26-34) MCHC 33.4 g/dl (32-36) RDW 14.0 % (11.5-14.5) Plt Count 235 k/mm3 (150-375) MPV 9.2 fl (7.4-10.4) Immature Gran % (Auto) 1.3 H % (0-0.5) Neut % (Auto) 74.2 H % (45.5-73.1) Lymph % (Auto) 15.2 L % (18.3-44.2) [place] % (Auto) 9.0 H % (2.6-8.5) Eos % (Auto) 0.1 % (0-4.4) Baso % (Auto) 0.2 % (0.2-1.2) Lymph # (Auto) 2.09 K/mm3 (0.9-3.2) [place] # (Auto) 1.2 H K/mm3 (0.1-0.6) Eos # (Auto) 0.0 K/mm3 (0-0.3) Baso # (Auto) 0.0 K/mm3 (0.0-0.1) Abs Immat Gran (auto) 0.18 H K/mm3 (0.00-0.031) Absolute Neuts (auto) 10.2 H K/mm3 (1.3-6.7) Absolute Nucleated RBC 0.000 K/mm3 (0.0-0.012) Nucleated RBC % 0.0 % (0.0-0.2) Syphilis IgG/IgM Ab Non-reactive (Nonreactive) Blood Type O Negative Antibody Screen Positive Antibody Identification Passive Due to RH Imm Glob Antigen Identification Cancelled DENIS, IgG Interpret Not Performed DENIS, Poly Interpret Neg DENIS, Complement Interp Not Performed Patient hx anesthesia problems: none Family hx anesthesia problems: none Results Review: All pre-operative results and documents have been reviewed as part of the pre- operative evaluation. [facility] Past Medical History Medical History Suppression of menses Bipolar 1 disorder Self-mutilation Hyperemesis gravidarum Depression Anxiety Surgical History Surgical History No pertinent past surgical history Family History Family History Sibling Diabetes mellitus Grandparent Diabetes mellitus Grandparent Breast cancer Social History Social History Smoking status: Never smoker Tobacco type: e-cigarettes/vaping Second hand tobacco smoke exposure: No Alcohol intake: current Substance use: never Substance use type: marijuana Other substance usage details: daily Do You Feel Safe in your Home?: Yes Lack of Transportation: No Lack of Food: Never True Current Housing: I Have Housing Concerned About Future Housing: No Difficulty Paying Gas/Electric Bills: No Difficulty Paying for Meds: No Currently Unemployed: No Education: High School Diploma/GED Difficulty w/ Childcare or Family Care: No Living arrangements: with family Occupation/Education: occupation Gender identity (if verbalized by the patient): Female Sexual Orientation (if Verbalized by the Patient): Straight or Heterosexual Spiritual care concerns: No Exam Day of Procedure 05/21/25 03:04
[2025-05-21] MEDS: ONDANSETRON INJ 4 MG/2 ML VIAL IV PUSH (06:16)
--- NOTE | 2025-05-21 06:20 | PM.OBPNLAB ---
Pain Control Date/time seen: 05/21/25 06:20 Pain control: tolerating well and epidural Pelvic Exam Dilation (cm): 3 Effacement (%): 75 station: -2 Amniotic membrane status: Leaking
--- NOTE | 2025-05-21 08:32 | P.PCNOB_ITS ---
OB - Vaginal Delivery Note Procedure Delivery date: 05/21/25 Induction method: None Delivery augmentation: Pitocin Delivery monitor: External FHT and External Uterine Route of delivery: Episiotomy description: None Laceration Description: None Specimen: No Quantitative Blood Loss (ml): 162 Anesthesia type: Epidural Disposition: Floor Complications: No immediate complications Narrative: Patient was admitted on the evening of 05/20/2025 with spontaneous rupture membranes at 37 and 5 7th weeks gestation. She had ruptured prior to admission a forebag was seen and this was ruptured a approximately 0 700. Epidural ane sthesia had previously been placed she was complete she pushed delivered head spontaneously in the SIMON position. Anterior posterior shoulder delivered spontaneously. Cord clamped 2x2 and cut and passed off the table given Apgars of 8 [id number]. Cord blood was drawn. Placenta delivered intact spontaneously. Twenty of Pitocin placed IV to help firm the uterus. After inspecting the vagina no tears or lacerations were noted. QBL was 162. All sponge, needle, instrument counts were correct. There were no immediate complications [place] Baby Date of : 05/21/25 Time of : 08:24 Gestational Age by Date: 37 Infant gender: Female presentation: vertex position: Right Occiput Anterior Placenta delivery description: Spontaneous Cord Vessel Description: 3 Vessels score one minute: 8 score five minutes: 9
--- NOTE | 2025-05-21 08:34 | PM.DS ---
DS: Admitting Diagnosis Discharge Date 05/23/2025 Admitting Diagnosis Term DS: Discharge Diagnosis Discharge Diagnosis (1) , delivered: Code(s): O80 - Encounter for full-term uncomplicated delivery Status: Acute DS: Summary Hospital Course Reason for hospitalization: Patient was admitted on the evening of 05/20/2025 spontaneous rupture membranes and delivered on 05/21/2025 at 8:24 a.m.. Hospital Course: Patient's hospital course unremarkable. She remained afebrile. She was up, voiding without difficulty, eating regular diet, ambulating, generally without complaints. Time Spent with Patient Time attestation: Total time spent providing and/or coordinating discharge services: Exam Const: General: cooperative, healthy appearing and comfortable Nutritional Appearance: average body habitus Orientation/consciousness: oriented to person, oriented to place and oriented to time HENMT: Head: normal to inspection Resp: Effort & Inspection: normal respiratory effort Cardio: Rate: regular rate Rhythm: regular rhythm Heart sounds: S1 normal heart sound present and S2 normal heart sound present GI: Inspection: normal to inspection (Gravid soft uterus) : External Female Exam: normal external appearance Speculum Exam - Vagina: normal appearance of the vagina Speculum Exam - Cervix: normal appearance of the cervix (Cervix 1/thick/-0. Clear fluid. FHTs reassuring) DS: Data Data Completed and Pending Labs on day of discharge: Labs from last 24 hours 05/20/25 17:42 WBC 13.7 H RBC 4.69 Hgb 12.8 Hct 38.3 MCV 81.7 MCH 27.3 MCHC 33.4 RDW 14.0 Plt Count 235 MPV 9.2 Immature Gran % (Auto) 1.3 H Neut % (Auto) 74.2 H Lymph % (Auto) 15.2 L [place] % (Auto) 9.0 H Eos % (Auto) 0.1 Baso % (Auto) 0.2 Lymph # (Auto) 2.09 [place] # (Auto) 1.2 H Eos # (Auto) 0.0 Baso # (Auto) 0.0 Abs Immat Gran (auto) 0.18 H Absolute Neuts (auto) 10.2 H Absolute Nucleated RBC 0.000 Nucleated RBC % 0.0 Syphilis IgG/IgM Ab Non-reactive Blood Type O Negative Antibody Screen Positive Antibody Identification Passive Due to RH Imm Glob Antigen Identification Cancelled DENIS, IgG Interpret Not Performed DENIS, Poly Interpret Neg DENIS, Complement Interp Not Performed Discharge Plan Discharge Attending physician on discharge: Wei Bautista Discharging Clinician: Wei Bautista Patient Disposition: Home Activity: may shower, no straining and pelvic rest Diet: heart healthy Wound Care Instructions: follow printed instructions Patient Instructions: Antibiotic Form Patient Language: [place] Stand Alone Forms: General Discharge Information Follow-up/Referrals: Wei Bautista MD [Physician, [employer]] Discharge Medications: Continued PNV no.95-ferrous fumarate-FA [] 28 mg iron- 800 mcg tablet 1 tablet PO DAILY Date of admission: 05/20/25 17:09 Primary Care Provider: Kalia Small Admitting Provider: Wei Bautista Attending physician on admission: Wei Bautista Condition: Stable
[2025-05-21] MEDS: OXYTOCIN 30 UNITS/NS 500 ML 30 UNITS/500 ML BAG 125 UNITS IV CONT (08:56)
[2025-05-21 10:17] LABS: HIV 1/2 Ab P24 Ag Result Negative (Negative)
--- NOTE | 2025-05-21 11:36 | PC.NURSE ---
Patient transferred to post room #290 via wheelchair. Support person present. Oriented to unit, room, information board, rooming in, admission packet and security measures. Patient verbalizes understanding.
--- NOTE | 2025-05-21 13:00 | PC.NURSE ---
Patient attempted to feed baby but was unable due to sleepy infant. We unwrapped baby and placed her in football hold next to mom. Baby was sticking her tongue out and seemed like she might be interested in eating. She licked the nipple a few times and then ceased giving any feeding cues. We stimulated baby to wake without any success. Reviewed normal behaviors in the immediate post period. Mom is encouraged to hold baby skin to skin and try latching again soon or when feeding cues are noted. Primary RN updated.
[2025-05-21] MEDS: MULTIVIT/MIN/PREN/FOL AC/IRON TABLET 1 TAB PO (13:05)
[2025-05-21] MEDS: IBUPROFEN 600 MG TABLET PO ×2 (13:05→19:42)
--- NOTE | 2025-05-21 14:00 | PC.NURSE ---
1400: Patient was unable to get infant to wake to feed. We unwrapped and stimulated baby to wake. She gave a few feeding cues but when placed in football hold next to mom, she never gaped or attempted to grasp the breast. We used a wet wipe to try to assist with waking baby and she would wiggle and fuss a bit but never woke up or tried to latch. Mom is encouraged to try again in a half hour and if baby will not wake to feed, we will obtain a blood sugar. Primary RN updated. 1500: Patient was not able to wake infant or have a successful . Infant was taken to the nursery and a blood sugar of 81 was obtained. Mother is setting up her personal breast pump and will pump for 15 minutes. Any amount expressed will be given to baby at this time. Mom pumped with her last child and knows how to use and care for her pump. Patient is advised to continue watching for early feeding cues. Primary RN updated.
[2025-05-22 00:30] VITALS: BP 95/62; PULSE 91; RESP 16; TEMP 36.6; O2SAT 98
[2025-05-22] MEDS: ACETAMINOPHEN 325 MG TABLET 650 MG PO ×2 (04:20→22:04)
[2025-05-22] MEDS: IBUPROFEN 600 MG TABLET PO ×3 (04:20→22:04)
[2025-05-22 05:22] LABS: Hematocrit 35.7 % (37.0-47.0); Hemoglobin 11.9 g/dL (12.0-15.0)
--- NOTE | 2025-05-22 07:01 | P.PNOB_ITS ---
OB - PN: Subj Subjective Date/time seen: 05/22/25 07:01 Patient comments: no complaints, pain well controlled and tolerating diet [place] baby status: doing well OB - PN: Obj Data Labs 05/22/25 04:08 Labs: Laboratory Results - last 24 hr 05/21/25 05/22/25 09:03 04:08 Hgb 11.9 L Hct 35.7 L HIV 1&2 Ab/P24 Ag 4thGn Negative Blood Type O Negative Antibody Screen Positive Antibody Identification Cancelled Antigen Identification Cancelled DENIS, IgG Interpret Cancelled DENIS, Poly Interpret Cancelled DENIS, Complement Interp Cancelled Screen Negative Baby's Blood Type O pos Baby's DENIS Positive Doses of RhIg Required 1 OB - PN A/P Assessment and Plan (1) , delivered: Code(s): O80 - Encounter for full-term uncomplicated delivery Status: Acute Plan routine care Time Spent With Patient Time: Total time spent is greater than 50% in coordination of care (as documented) at patient's floor/unit and/or counseling patient: Review of Systems 2 Review of Systems: All systems reviewed & are unremarkable except as noted in HPI. All systems reviewed & are unremarkable except as noted in HPI and below Exam 2 Const: General: cooperative, healthy appearing and comfortable Nutritional Appearance: average body habitus Orientation/consciousness: oriented to person, oriented to place and oriented to time HENMT: Head: normal to inspection Resp: Effort & Inspection: normal respiratory effort Cardio: Rate: regular rate Rhythm: regular rhythm Heart sounds: S1 normal heart sound present and S2 normal heart sound present GI: Inspection: normal to inspection (Gravid soft uterus) : External Female Exam: normal external appearance Speculum Exam - Vagina: normal appearance of the vagina Speculum Exam - Cervix: normal appearance of the cervix (Cervix 1/thick/-0. Clear fluid. FHTs reassuring)
[2025-05-22 07:30] VITALS: BP 134/88; PULSE 75; RESP 16; TEMP 36.8; O2SAT 97
[2025-05-22] MEDS: MULTIVIT/MIN/PREN/FOL AC/IRON TABLET 1 TAB PO (08:13)
[2025-05-22] MEDS: RHO(D) IMMUNE GLOBULIN 300 MCG/2 ML SYRINGE IM (11:34)
--- NOTE | 2025-05-22 13:44 | WPDANLDPN2 ---
Anes-Prog Note L&D Date/Time: 05/22/25 13:44 Comfortable throughout: labor and delivery Neuraxial method: epidural Epidural/Spinal procedure site: clean & non-tender Neuro status: Neuro function grossly intact. Cardiovascular status: normal Respiratory status: normal Airway patency: baseline Mental status: baseline Post-Op hydration status: normal Vital Signs: Last Vital Signs Temp 36.8 C 05/22/25 07:30 Pulse 75 05/22/25 07:30 Resp 16 05/22/25 07:30 BP 134/88 05/22/25 07:30 Pulse Ox 97 05/22/25 07:30 O2 Del Method Room Air 05/21/25 07:00 Pain score (VAS): 1 I/O: Intake & Output 05/21/25 05/22/25 05/22/25 23:59 07:59 15:59 Intake Total 240 Balance 240 Patient feedback: Patient satisfied with anesthetic care.
--- NOTE | 2025-05-22 15:08 | PC.NURSE ---
0755 Mother verbalizes she is able to independently latch infant with appropriate positioning and alignment. She denies any nipple discomfort and is responsively . is currently meeting outcomes for weight, output, and feeding frequencies of 8-12 times in 24 hours. Mother declines any additional assistance or education at this time. Mother is encouraged to call for assistance if her infant doesn?t latch, pain with latching, questions or concerns. Mother voiced understanding of information shared along with the mom/baby guide for an additional resource. Reported to the Primary RN. 1147 CLC called to room by mother to assess latch and feeding. We reviewed working with the , supporting breast, protecting her nipples with an optimal deep latch, good positioning, and good hand washing. Encouraged understanding the benefits of skin to skin, responding to feeding cues, frequencies of feeding 8-12 times in 24 hours (approximately 2-3 hours), duration of feedings, milk production, intake/output feeding sheet and signs of adequate intake encouraging swallowing at the breast. Reviewed positioning and alignment, supporting breast, off-centered (asymmetrical latch) and leading with the chin with big, open, wide gape. Infant latched optimally to the [right] breast in [cross cradle] position. Education given to the mother of how to visualize the suckling (with good rocking jaw motion) swallows (dropping of the lower jaw) and how to listen for drinking at the breast (the ka sound). The was [able] to maintain latch without discomfort to mother. Nipple care reviewed with optimal latch, good positioning and using clean hands when touching her breast. Resources used to facilitate learning were used from the [visual handouts/ tool/mom and baby guide]. Mother voiced understanding of the education shared, to call for assistance if the does not latch or if there is discomfort with . Reported to the Primary RN.
[2025-05-22 19:47] VITALS: BP 126/86; PULSE 68; RESP 18; TEMP 36.9; O2SAT 97
--- NOTE | 2025-05-23 06:12 | P.PNOB_ITS ---
OB - PN: Subj Subjective Date/time seen: 05/23/25 06:12 Patient comments: no complaints, pain well controlled and tolerating diet [place] baby status: doing well OB - PN: Obj Data Labs 05/22/25 04:08 Labs: Laboratory Results - last 24 hr 05/22/25 04:08 Blood Type O Negative Antibody Screen Positive Antibody Identification Cancelled Antigen Identification Cancelled DENIS, IgG Interpret Cancelled DENIS, Poly Interpret Cancelled DENIS, Complement Interp Cancelled Screen Negative Baby's Blood Type O pos Baby's DENIS Positive Doses of RhIg Required 1 OB - PN A/P Assessment and Plan (1) , delivered: Code(s): O80 - Encounter for full-term uncomplicated delivery Status: Acute Plan home Time Spent With Patient Time: Total time spent is greater than 50% in coordination of care (as documented) at patient's floor/unit and/or counseling patient: Review of Systems 2 Review of Systems: All systems reviewed & are unremarkable except as noted in HPI. All systems reviewed & are unremarkable except as noted in HPI and below Exam 2 Const: General: cooperative, healthy appearing and comfortable Nutritional Appearance: average body habitus Orientation/consciousness: oriented to person, oriented to place and oriented to time HENMT: Head: normal to inspection Resp: Effort & Inspection: normal respiratory effort Cardio: Rate: regular rate Rhythm: regular rhythm Heart sounds: S1 normal heart sound present and S2 normal heart sound present GI: Inspection: normal to inspection (Gravid soft uterus) : External Female Exam: normal external appearance Speculum Exam - Vagina: normal appearance of the vagina Speculum Exam - Cervix: normal appearance of the cervix (Cervix 1/thick/-0. Clear fluid. FHTs reassuring)
[2025-05-23 08:00] VITALS: BP 120/87; PULSE 77; RESP 18; TEMP 36.7; O2SAT 99
[2025-05-23] MEDS: MULTIVIT/MIN/PREN/FOL AC/IRON TABLET 1 TAB PO (08:00)
[2025-05-23] MEDS: ACETAMINOPHEN 325 MG TABLET 650 MG PO (08:00)
[2025-05-23] MEDS: INFLUENZA VACCINE 45 MCG/0.5 ML SYRINGE IM (11:45)
--- NOTE | 2025-05-23 16:52 | PC.NURSE ---
0720 Consulted with patient to assess needs related to . Discussed with mother her successes, concerns and any questions she has. Mother felt that the latch she currently had with this feed was pinching, re-latched and was able to get baby deeper and mother felt no pain, latch felt much better. We reviewed working with the , supporting breast, protecting her nipples with an optimal deep latch, good positioning, and good hand washing. Encouraged understanding the benefits of skin to skin, responding to feeding cues, frequencies of feeding 8-12 times in 24 hours (approximately 2-3 hours), duration of feedings, milk production, intake/output feeding sheet and signs of adequate intake encouraging swallowing at the breast. Reviewed positioning and alignment, supporting breast, off-centered (asymmetrical latch) and leading with the chin with big, open, wide gape. latched optimally to the [left] breast in [cross cradle] position. Education given to the mother of how to visualize the suckling (with good rocking jaw motion) swallows (dropping of the lower jaw) and how to listen for drinking at the breast (the ka sound). The was [able] to maintain latch without discomfort to mother. Nipple care reviewed with optimal latch, good positioning and using clean hands when touching her breast. Primary RN had already spoken with mother regarding supplementing due to weight loss and jaundice ( [place] +), parents chose to go ahead and supplement and mother also had her own breast pump she was going to use as well. Mother does have history of low milk supply with her first baby. Resources used to facilitate learning were used from the [visual handouts/ tool/mom and baby guide]. Mother voiced understanding of the education shared, to call for assistance if the does not latch or if there is discomfort with . Reported to the Primary RN. 1140 Mother shared her ability to independently latch infant optimally without pain. Mother is feeding appropriately for growth of infant and understands stimulating infant to eat if needed. has had appropriate feedings in the last 24 hours meets the outcomes for weight, output, blood sugar and jaundice at this time. Reinforced understanding of milk production, transition of milk, signs of adequate intake, transition of stool, prevention/relief of engorgement, plugged ducts, mastitis, responsive watching for feeding cues, the different methods of stimulating infant to breastfeed 1-3 hours after the start of the last feeding, community resources, and when to call a provider using the resource of the feeding sheet along with the mom and baby guide. Mother voiced understanding of the information shared, is confident to continue effectively her infant at home, when to call for assistance, denies any additional assistance or education at this time. Reported to the Primary RN.
[2025-05-24 14:07] VITALS: BP 116/84; PULSE 90; RESP 18; TEMP 37; O2SAT 98
== END 2025-05-23 12:10 | disposition home or self-care (01) | DRG 560 ==
LOC: ANHLDR 05-21 08:36 → ANHOB2 05-21 11:40
PROVIDERS: Admitting Provider Obstetrics & Gynecology; PCP Emergency Medicine; Visit Provider Obstetrics & Gynecology
DX: O80 Encounter for full-term uncomplicated delivery (principal); Z3A.37 37 weeks gestation of pregnancy; Z37.0 Single live birth; Z23 Encounter for immunization
CPT/HCPCS: 36415; 85014; 85018; 85025; 85461; 86593; 86703; 86850; 86880; 86900; 86901; 86902; 90384; 90471; 90656; A9270; G0008; G0432; J2405; J2590; J2790; J2795; J7120